=== PATIENT | female | born 1945 ===

== ENCOUNTER 2017-01-14 19:13 | Emergency (ER) | payer MEDICARE, MEDICAID ==
[2017-01-14 19:30] VITALS: BP 156/88; PULSE 88; RESP 20; TEMP 98.2; O2SAT 98
[2017-01-14] MEDS ORDERED: Acetaminophen-Codeine 300/30 mg Tab PO STA (19:53)
--- NOTE | 2017-01-14 19:55 | C.PDOC ---
History Of Present Illness 71 year old female presents to the ED complaining of pain to right upper back and shoulder area for the past 3 days. She states that she slipped and fell 3 days ago and landed on outstretched arms and has had pain since. Patient has history of kidney transplant and does not like to take non-prescribed medications at home. Pt denies SOB, weakness, or numbness ot the extremities Time Seen by Provider: 01/14/17 19:38 Chief Complaint (Nursing): Back Pain History Per: Patient History/Exam Limitations: no limitations Onset/Duration Of Symptoms: Days Current Symptoms Are (Timing): Still Present Past Medical History Reviewed: Historical Data, Nursing Documentation, Vital Signs Vital Signs: Last Vital Signs Temp 98.2 F 01/14/17 19:20 Pulse 88 01/14/17 19:20 Resp 20 01/14/17 19:20 BP 156/88 H 01/14/17 19:20 Pulse Ox 98 01/14/17 20:27 - Medical History PMH: Anxiety, Depression, Diabetes, HTN, Hypercholesterolemia, Chronic Kidney Disease - [facility] Procedures INSPECTION OF LARYNX, ENDO (11/23/15) Family History: States: Diabetes - Social History Hx Tobacco Use: No Hx Alcohol Use: No Hx Substance Use: No - Immunization History Hx Tetanus Toxoid Vaccination: Yes Hx Influenza Vaccination: Yes Hx Pneumococcal Vaccination: Yes Review Of Systems Respiratory: Negative for: Shortness of Breath Musculoskeletal: Positive for: Shoulder Pain, Back Pain Neurological: Negative for: Weakness, Numbness Physical Exam - Physical Exam Appears: Non-toxic, No Acute Distress Chest: No Tenderness Back: Normal Inspection, No Vertebral Tenderness, Other (Tenderness to right subscapular area, No weakness or numbness, No vertebral spine tenderness) Extremity: Other (No tenderness to palpation of right shoulder, Normal range of motion of right shoulder, No weakness, No numbness) Extremity: Bilateral: Atraumatic Neurological/Psych: Oriented x3, Normal Motor, Normal Sensation Gait: Steady ED Course And Treatment O2 Sat by Pulse Oximetry: 98 Pulse Ox Interpretation: Normal Progress Note: Pt reports pain improvement after meds. Pt instructed to follow up with PMD for reevaluation and pain management. Discharge instructions were discussed and understood by pt Disposition Counseled Patient/Family Regarding: Diagnosis, Need For Followup, Rx Given - Disposition Referrals: Alphonso Whitfield MD [Staff Provider] - Disposition: HOME/ ROUTINE Disposition Time: 20:24 Condition: STABLE Additional Instructions: Please follow up with Dr Whitfield Take meds as prescribed Return to ER if worse Prescriptions: Acetaminophen with Codeine [Tylenol with Codeine #3 Tablet] 1 - 2 each PO QID # 10 tablet Instructions: Muscle Strain (ED) Forms: [employer] ([place] Islander) Print Language: RUSSIAN - Clinical Impression Clinical Impression: Upper back strain - Scribe Statement The provider has reviewed the documentation as recorded by the Scribe Ariel Pace
[2017-01-14] MEDS ORDERED: Acetaminophen-Codeine 300/30 mg Tab PO ONE (20:05)
== END 2017-01-14 20:30 | disposition home or self-care (01) ==
LOC: C.ER 19:13
DX: S29.012A Strain of muscle and tendon of back wall of thorax, initial encounter (principal); W01.0XXA Fall on same level from slipping, tripping and stumbling without subsequent striking against object, initial encounter; Y93.89 Activity, other specified; Y92.89 Other specified places as the place of occurrence of the external cause

== ENCOUNTER 2017-04-06 19:23 | Emergency (ER) | payer MEDICARE, MEDICAID ==
[2017-04-06 20:48] LABS: BASO % 0.7 % (0.0-2.0); EOS % 0.3 % (0.0-4.0); HEMOGLOBIN 13.5 g/dL (11.0-16.0); LYMPH # 1.8 K/uL (1.0-4.3); LYMPH % 24.4 % (20.0-40.0); MEAN CELL VOLUME 84.2 fL (81.0-99.0); MEAN CORPUSCULAR HEMOGLOBIN 28.3 pg (27.0-31.0); MEAN CORPUSCULAR HGB CONC 33.6 g/dL (33.0-37.0); MEAN PLATELET VOLUME 9.7 fL (7.2-11.7); MONO # 0.6 K/uL (0.0-0.8); MONO % 7.9 % (0.0-10.0); NEUT # 4.9 K/uL (1.8-7.0); NEUT % 66.7 % (50.0-75.0); RBC 4.76 Mil/uL (3.80-5.20); RED CELL DISTRIBUTION WIDTH 13.6 % (11.5-14.5); WHITE BLOOD COUNT 7.4 K/uL (4.8-10.8)
--- NOTE | 2017-04-06 20:51 | C.PDOC ---
History Of Present Illness 71 year old female presents to the emergency department after sent by her primary care doctor, Dr. Alphonso Whitfield MD, after sugar levels were greater than 500. Associated with increased thirst and increased urination. Denies dizziness or any visual changes. Time Seen by Provider: 04/06/17 20:51 Chief Complaint (Nursing): Medical Clearance History Per: Patient History/Exam Limitations: no limitations Past Medical History Reviewed: Historical Data, Nursing Documentation, Vital Signs Vital Signs: Last Vital Signs Temp 97.6 F 04/06/17 19:56 Pulse 64 04/06/17 19:56 Resp 20 04/06/17 19:56 BP 180/92 H 04/06/17 19:56 Pulse Ox 100 04/06/17 21:51 - Medical History PMH: Anxiety, Depression, Diabetes, HTN, Hypercholesterolemia, Chronic Kidney Disease - [facility] Procedures INSPECTION OF LARYNX, ENDO (11/23/15) Family History: States: Diabetes - Social History Hx Tobacco Use: No Hx Alcohol Use: No Hx Substance Use: No - Immunization History Hx Tetanus Toxoid Vaccination: Yes Hx Influenza Vaccination: Yes Hx Pneumococcal Vaccination: Yes Review Of Systems Except As Marked, All Systems Reviewed And Found Negative. (As per HPI, otherwise negative) Constitutional: Positive for: Other (increased thirst) Eyes: Negative for: Vision Change Genitourinary: Positive for: Other (Increased urination. ) Neurological: Negative for: Dizziness Physical Exam - Physical Exam Appears: Well, Non-toxic Skin: Normal Color, Warm, Dry Head: Atraumatic, Normacephalic Throat: Normal, No Erythema Chest: Symmetrical Cardiovascular: Rhythm Regular, No Murmur Respiratory: Normal Breath Sounds, No Decreased Breath Sounds, No Accessory Muscle Use, No Wheezing Gastrointestinal/Abdominal: Normal Exam, Soft, No Tenderness Extremity: Normal ROM, No Pedal Edema Neurological/Psych: Oriented x3 ED Course And Treatment - Laboratory Results Result Diagrams: 04/06/17 20:43 04/06/17 20:43 ECG: Interpreted By Me, Viewed By Me ECG Rhythm: Sinus Rhythm (56), Nonspecific Changes O2 Sat by Pulse Oximetry: 100 (RA) Pulse Ox Interpretation: Normal - Radiology CXR: Interpreted by Me, Viewed By Me Reevaluation Time: 23:14 Reassessment Condition: Improved Medical Decision Making Medical Decision Making: Time: 2041 --VBG --EKG --Sodium Chloride 1L IV --Urinalysis --Random Glucose: 444 (High) Disposition Counseled Patient/Family Regarding: Studies Performed, Diagnosis, Need For Followup - Disposition Referrals: Alphonso Whitfield MD [Staff Provider] - Disposition: HOME/ ROUTINE Disposition Time: 20:51 Condition: FAIR Additional Instructions: Please return if symptoms recur Instructions: Diabetic Hyperglycemia (ED) Forms: [employer] (Micronesian) Print Language: ARMENIAN - Clinical Impression Clinical Impression: Hyperglycemia - Scribe Statement Deb Monzon All medical record entries made by the Scribe were at my direction and personally dictated by me. I have reviewed the chart and agree that the record accurately reflects my personal performance of the history, physical exam, medical decision making, and the department course for this patient. I have also personally directed, reviewed, and agree with the discharge instructions and disposition.
[2017-04-06 21:06] LABS: ALB/GLOB RATIO 1.3 (1.0-2.1); ALT/SGPT 15 U/L (9-52); AST/SGOT 17 U/L (14-36); BLOOD UREA NITROGEN 20 mg/dL (7-17); GFR AFRICAN-AMERICAN > 60; GFR NON-AFRICAN AMERICAN > 60
[2017-04-06] MEDS ORDERED: Sodium Chloride 0.9% 1,000 ML IV ONE (21:11)
[2017-04-06 21:15] LABS: LIPASE 205 U/L (23-300)
[2017-04-06 21:45] LABS: SQUAMOUS EPITHIAL < 1 /hpf (0-5); URINE BILIRUBIN NEGATIVE (NEGATIVE); URINE BLOOD NEGATIVE (NEGATIVE); URINE CLARITY Clear (Clear); URINE COLOR Straw (YELLOW); URINE GLUCOSE (UA) 3+ mg/dL (Normal); URINE LEUKOCYTE ESTERASE 1+ Leu/uL (Negative); URINE NITRATE NEGATIVE (NEGATIVE); URINE PROTEIN NEGATIVE (NEGATIVE); URINE UROBILINOGEN NORMAL mg/dL (0.2-1.0)
[2017-04-06 22:03] LABS: VENOUS BLOOD GAS BASE EXCESS -1.8 mmol/L (0.0-2.0); VENOUS BLOOD GAS PCO2 39 mmHg (40-60); VENOUS BLOOD GAS PO2 63 mm/Hg (30-55); VENOUS BLOOD PH 7.38 (7.32-7.43)
[2017-04-06] MEDS ORDERED: (Novolin R) Insulin Human Regular 100 units/ml vial SC ONE ×2 (22:08→22:42)
[2017-04-06] MEDS ORDERED: (Novolin R) Insulin Human Regular 100 units/ml vial ONE (22:31)
[2017-04-06 23:23] VITALS: BP 169/78; PULSE 68; RESP 16; TEMP 97.8; O2SAT 99
== END 2017-04-06 23:30 | disposition home or self-care (01) ==
LOC: C.ER 19:23
DX: E11.65 Type 2 diabetes mellitus with hyperglycemia (principal); I12.9 Hypertensive chronic kidney disease with stage 1 through stage 4 chronic kidney disease, or unspecified chronic kidney disease; N18.9 Chronic kidney disease, unspecified
CPT/HCPCS: 80053; 81001; 82009; 82803; 82948; 83690; 85025; 96360; 96372; 99283; J7040

== ENCOUNTER 2017-07-18 11:35 | Emergency (ER) | payer MEDICARE, MEDICAID ==
[2017-07-18] MEDS ORDERED: Sodium Chloride 0.9% 1,000 ML IV ONE (12:06)
--- NOTE | 2017-07-18 12:27 | C.PDOC ---
History Of Present Illness 71yo female with history of kidney transplant (2006 at [facility]), presents to ER for evaluation as she felt "shaky." Patient denies any fever, chills, chest pain, shortness of breath, weakness, numbness. She offers no medical complaints. Time Seen by Provider: 07/18/17 11:53 Chief Complaint (Nursing): Medical Clearance History Per: Patient History/Exam Limitations: no limitations Onset/Duration Of Symptoms: Mins Severity: Mild Recent travel outside of the [place]: No Past Medical History Reviewed: Historical Data, Nursing Documentation, Vital Signs Vital Signs: Last Vital Signs Temp 98.5 F 07/18/17 11:49 Pulse 99 H 07/18/17 11:49 Resp 20 07/18/17 11:49 BP 156/92 H 07/18/17 11:49 Pulse Ox 97 07/18/17 13:47 - Medical History PMH: Anxiety, Depression, Diabetes, HTN, Hypercholesterolemia, Chronic Kidney Disease Other Surgeries: kidney transplant - [facility] Procedures INSPECTION OF LARYNX, ENDO (11/23/15) Family History: States: Unknown Family Hx, Diabetes - Social History Hx Tobacco Use: No Hx Alcohol Use: No Hx Substance Use: No - Immunization History Hx Tetanus Toxoid Vaccination: Yes Hx Influenza Vaccination: Yes Hx Pneumococcal Vaccination: Yes Review Of Systems Except As Marked, All Systems Reviewed And Found Negative. Constitutional: Positive for: Other ("shaky"). Negative for: Fever, Chills Cardiovascular: Negative for: Chest Pain Respiratory: Negative for: Shortness of Breath Gastrointestinal: Negative for: Abdominal Pain Physical Exam - Physical Exam Appears: Non-toxic, No Acute Distress Skin: Normal Color, Warm, Dry Head: Atraumatic, Normacephalic Eye(s): bilateral: Normal Inspection, PERRL, EOMI Oral Mucosa: Moist Neck: Normal ROM, Supple Chest: Symmetrical Cardiovascular: Rhythm Regular Respiratory: Normal Breath Sounds, No Wheezing Gastrointestinal/Abdominal: Normal Exam, Soft, No Tenderness, Other (transplant scar noted to right abdomen) Back: Normal Inspection Extremity: Normal ROM Neurological/Psych: Oriented x3 Gait: Steady ED Course And Treatment - Laboratory Results Result Diagrams: 07/18/17 12:42 07/18/17 12:42 Lab Interpretation: Normal O2 Sat by Pulse Oximetry: 97 (RA) Pulse Ox Interpretation: Normal Progress Note: Patient reports she felt shakey today and request being checked out. Called 911. Treated with IVF and labs. On re-evaluation feeling better, in no distress Reassessment Condition: Improved Medical Decision Making Medical Decision Making: Plan: -- Labs -- Urinalysis -- IV Fluids Disposition Counseled Patient/Family Regarding: Studies Performed, Diagnosis, Need For Followup - Disposition Referrals: [facility] [Outside] [facility] [Outside] Disposition: HOME/ ROUTINE Disposition Time: 14:00 Condition: STABLE Additional Instructions: Follow up with your PMD and transplant clinic for further evaluation Instructions: Generalized Weakness (DC), Weakness (ED) Forms: [employer] (Sami) - POA Present On Arrival: None - Clinical Impression Clinical Impression: Medical assessment, Weakness - PA / GAMING HOST / Resident Statement MD/DO has reviewed & agrees with the documentation as recorded. - Scribe Statement The provider has reviewed the documentation as recorded by the Scribe (Marycruz Schmitt) Provider Attestation: All medical record entries made by the Scribe were at my direction and personally dictated by me. I have reviewed the chart and agree that the record accurately reflects my personal performance of the history, physical exam, medical decision making, and the department course for this patient. I have also personally directed, reviewed, and agree with the discharge instructions and disposition.
[2017-07-18 12:48] LABS: BASO # 0.1 K/uL (0.0-0.2); BASO % 0.8 % (0.0-2.0); EOS % 0.5 % (0.0-4.0); HEMOGLOBIN 13.5 g/dL (11.0-16.0); LYMPH # 1.2 K/uL (1.0-4.3); LYMPH % 17.6 % (20.0-40.0); MEAN CORPUSCULAR HEMOGLOBIN 28.6 pg (27.0-31.0); MEAN CORPUSCULAR HGB CONC 33.6 g/dL (33.0-37.0); MEAN PLATELET VOLUME 9.9 fL (7.2-11.7); MONO # 0.5 K/uL (0.0-0.8); MONO % 7.1 % (0.0-10.0); NEUT # 5.2 K/uL (1.8-7.0); RBC 4.73 Mil/uL (3.80-5.20); RED CELL DISTRIBUTION WIDTH 14.1 % (11.5-14.5); WHITE BLOOD COUNT 7.1 K/uL (4.8-10.8)
[2017-07-18 12:55] LABS: SQUAMOUS EPITHIAL < 1 /hpf (0-5); URINE BILIRUBIN NEGATIVE (NEGATIVE); URINE BLOOD NEGATIVE (NEGATIVE); URINE CLARITY Clear (Clear); URINE COLOR Yellow (YELLOW); URINE GLUCOSE (UA) NORMAL (Normal); URINE LEUKOCYTE ESTERASE NEG Leu/uL (Negative); URINE PROTEIN 2+ mg/dL (NEGATIVE); URINE UROBILINOGEN NORMAL mg/dL (0.2-1.0)
[2017-07-18 13:04] LABS: ALB/GLOB RATIO 1.1 (1.0-2.1); ALBUMIN 3.9 g/dL (3.5-5.0); GFR AFRICAN-AMERICAN > 60; GFR NON-AFRICAN AMERICAN > 60
[2017-07-18 13:12] LABS: ALT/SGPT 10 U/L (9-52); AST/SGOT 28 U/L (14-36); BLOOD UREA NITROGEN 16 mg/dL (7-17)
[2017-07-18 15:09] VITALS: BP 150/79; PULSE 75; RESP 18; TEMP 98.2; O2SAT 100
== END 2017-07-18 15:09 | disposition home or self-care (01) ==
LOC: C.ER 11:35
DX: R53.1 Weakness (principal)

== ENCOUNTER 2017-09-23 19:17 | Emergency (ER) | payer MEDICARE, MEDICAID ==
[2017-09-23 19:45] VITALS: RESP 16; TEMP 98; O2SAT 98
--- NOTE | 2017-09-23 20:50 | C.PDOC ---
History Of Present Illness 72-year-old female, presents to the emergency department with complaints of trip /fall prior to arrival. Patient is complaining of headache, pain to left knee, face and swelling of the lip. She denies any loss of consciousness. Patient notes tooth #6 is slightly loose. Denies any nausea/vomiting. - HPI Time Seen by Provider: 09/23/17 20:01 Chief Complaint (Nursing): Trauma History Per: Patient History/Exam Limitations: no limitations Injury Occurred (Timing): Just Before Arrival Past Medical History Reviewed: Historical Data, Nursing Documentation, Vital Signs Vital Signs: Last Vital Signs Temp 98.0 F 09/23/17 19:42 Pulse 61 09/23/17 22:40 Resp 16 09/23/17 22:40 BP 146/85 09/23/17 22:40 Pulse Ox 98 09/23/17 22:40 - Medical History PMH: Anxiety, Depression, Diabetes, HTN, Hypercholesterolemia, Chronic Kidney Disease - [facility] Procedures INSPECTION OF LARYNX, ENDO (11/23/15) Family History: States: Diabetes - Social History Hx Tobacco Use: No Hx Alcohol Use: No Hx Substance Use: No - Immunization History Hx Tetanus Toxoid Vaccination: Yes Hx Influenza Vaccination: Yes Hx Pneumococcal Vaccination: Yes Review Of Systems ENT: Positive for: Other (loose tooth) Respiratory: Negative for: Shortness of Breath Gastrointestinal: Negative for: Nausea, Vomiting Musculoskeletal: Negative for: Neck Pain, Back Pain Skin: Positive for: Other (pain to lip) Neurological: Positive for: Headache. Negative for: Weakness, Numbness, Dizziness Physical Exam - Physical Exam Appears: Non-toxic, No Acute Distress Skin: Normal Color, Warm, Dry, No Rash Head: Atraumatic, Normacephalic, Other (abrasion to lip, and knee.) Eye(s): bilateral: Normal Inspection, PERRL Nose: Normal Oral Mucosa: Moist Lips: Normal Appearing Teeth: Loose (tooth #6) Neck: Normal ROM, No Step Off Deformity Chest: Symmetrical Cardiovascular: Rhythm Regular, No Murmur Respiratory: Normal Breath Sounds, No Accessory Muscle Use Extremity: Normal ROM, No Deformity, No Swelling Neurological/Psych: Oriented x3, Normal Speech ED Course And Treatment O2 Sat by Pulse Oximetry: 98 (RA) Pulse Ox Interpretation: Normal - CT Scan/US CT head Other Rad Studies (CT/US): Read By Radiologist, Radiology Report Reviewed CT/US Interpretation: Name: TARIQ RICHEY Age: 72Years F Date: 09/23/2017. Requesting Physician: Prachi VELASQUEZ Rosi : 1945. [employer] Procedure Ordered As Accession Number of Images. CT HEAD WO CT HEAD W O CONTRAST [id number]. Provided Clinical History: fall. CONFIDENTIALITY STATEMENT. This report is intended only for the use of the referring physician , and only in accordance with law, If you received this in error, call [phone]. Page 1 of 1. EXAM: CT Head Without Intravenous Contrast. CLINICAL HISTORY: 72 years old, female; Injury or trauma; Fall; Initial encounter; Concussion /. head injury. TECHNIQUE: Axial computed tomography images of the head/brain without intravenous contrast. All CT scans at this facility use at least one of these dose optimization techniques: automated. exposure control; mA and/or kV adjustment per patient size (includes targeted exams where dose is. matched to clinical indication); or iterative reconstruction. COMPARISON: CT - HEAD W/O CONTRAST 2017-08-11 18:23. FINDINGS: Brain: Small vessel ischemic/degenerative changes. 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 Lacunar infarcts in both basal ganglia. No hemorrhage. Ventricles: Unremarkable. No ventriculomegaly. Bones/joints: Unremarkable. No acute fracture. Soft tissues: Unremarkable. Vasculature: Intracranial arterial calcifications. Sinuses: Unremarkable as visualized. No acute sinusitis. Mastoid air cells: Unremarkable as visualized. No mastoid effusion. IMPRESSION: Small vessel ischemic/degenerative changes. Thank you for allowing us to participate in the care of your patient. Dictated and Authenticated by: Rylan Davis MD. 09/23/2017 8:49 PM Eastern Time ([place] & [place]) Progress Note: XR knee and CT head ordered and reviewed. Disposition - Disposition Referrals: Alphonso Whitfield MD [Staff Provider] - Disposition: HOME/ ROUTINE Disposition Time: 22:35 Condition: STABLE Additional Instructions: Follow up with your PMD within 1-2 days. Return to ED if feel worse. Prescriptions: Acetaminophen [Tylenol 325mg tab] 2 tab PO Q6 #50 tab Instructions: Knee Sprain (DC), Minor Head Injury (DC) Forms: [facility] (Bangladeshi) - Clinical Impression Clinical Impression: Minor head injury, Knee contusion - Scribe Statement The provider has reviewed the documentation as recorded by the Scribe (Dwaine Carroll) All medical record entries made by the Scribe were at my direction and personally dictated by me. I have reviewed the chart and agree that the record accurately reflects my personal performance of the history, physical exam, medical decision making, and the department course for this patient. I have also personally directed, reviewed, and agree with the discharge instructions and disposition.
[2017-09-23 22:47] VITALS: BP 146/85; PULSE 61
--- NOTE | 2017-09-24 08:36 | CT ---
PROCEDURE: CT HEAD WITHOUT CONTRAST. HISTORY: fall COMPARISON: CT head dated 08/11/2017 TECHNIQUE: Axial computed tomography images were obtained through the head/brain without intravenous contrast. Radiation dose: Total exam DLP = 620 mGy-cm. This CT exam was performed using one or more of the following dose reduction techniques: Automated exposure control, adjustment of the mA and/or kV according to patient size, and/or use of iterative reconstruction technique. FINDINGS: HEMORRHAGE: No intracranial hemorrhage. BRAIN: Scattered focal lucencies in the subcortical and periventricular white matter suggestive for chronic microvascular ischemic change. 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 Lacunar infarcts in both basal ganglia. Persistent prominence of the left extra-axial CSF space adjacent to the left cerebellum measuring up to 2.1 x 0.9 centimeters previously measuring 2.0 x 0.9 centimeters. Correlation with MRI may be helpful ifclinically indicated. VENTRICLES: Unremarkable. No hydrocephalus. CALVARIUM: Unremarkable. PARANASAL SINUSES: Unremarkable as visualized. No significant inflammatory changes. MASTOID AIR CELLS: Unremarkable as visualized. No inflammatory changes. OTHER FINDINGS: Intracranial arterial calcifications. IMPRESSION: Chronic microvascular ischemic changes. 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 Lacunar infarcts in both basal ganglia. Persistent prominence of the left extra-axial CSF space adjacent to the left cerebellum measuring up to 2.1 x 0.9 centimeters previously measuring 2.0 x 0.9 centimeters. Correlation with MRI may be helpful if clinically indicated. If symptoms persist, consider correlation with MRI. These findings were preliminarily reported at 8:49 p.m. on 09/23/[address] Rylan Davis from [employer].
--- NOTE | 2017-09-24 09:45 | RAD ---
PROCEDURE: Left Knee Radiographs. HISTORY: Pain. COMPARISON: None. FINDINGS: BONES: Normal. No fracture. JOINTS: Normal. No osteoarthritis. JOINT EFFUSION: None. OTHER FINDINGS: None. IMPRESSION: Normal radiographs of the left knee.
== END 2017-09-23 22:40 | disposition home or self-care (01) ==
LOC: C.ER 19:17
DX: S09.90XA Unspecified injury of head, initial encounter (principal); S80.02XA Contusion of left knee, initial encounter; W01.0XXA Fall on same level from slipping, tripping and stumbling without subsequent striking against object, initial encounter; Y92.9 Unspecified place or not applicable

== ENCOUNTER 2018-01-10 08:32 | Emergency (ER) | payer MEDICARE, MEDICAID ==
[2018-01-10 08:49] VITALS: TEMP 98.2
--- NOTE | 2018-01-10 09:45 | C.PDOC ---
Chief Complaint (Nursing): Psychiatric Evaluation Past Medical History Vital Signs: Last Vital Signs Temp 98.2 F 01/10/18 08:45 Pulse 117 H 01/10/18 08:45 Resp 20 01/10/18 08:45 BP 207/112 H 01/10/18 08:45 Pulse Ox 100 01/10/18 08:45 - Medical History PMH: Anxiety, Depression, Diabetes, HTN, Hypercholesterolemia, Chronic Kidney Disease - [facility] Procedures INSPECTION OF LARYNX, ENDO (11/23/15) Family History: States: Diabetes - Social History Hx Tobacco Use: No Hx Alcohol Use: No Hx Substance Use: No - Immunization History Hx Tetanus Toxoid Vaccination: Yes Hx Influenza Vaccination: No Hx Pneumococcal Vaccination: No ED Course And Treatment O2 Sat by Pulse Oximetry: 100 Disposition - Disposition
--- NOTE | 2018-01-10 09:46 | C.PDOC ---
History Of Present Illness 72 y/o female with history of HTN, Depression, Kidney transplant brought by EMS and daughter for concerns to bizarre behavior and non compliant with medication. As per daughter patient recently became hoarder. Patient last seen psychiatrist 1 year ago. Patient denies SI/HI, auditory or visual hallucinations. Chief Complaint (Nursing): Psychiatric Evaluation History Per: Patient, Family Onset/Duration Of Symptoms: Days Current Symptoms Are (Timing): Still Present Suicide/Self Injury Attempted (Context): None Associated Symptoms: Depression Past Medical History Reviewed: Historical Data, Nursing Documentation, Vital Signs Vital Signs: Last Vital Signs Temp 98.2 F 01/10/18 08:45 Pulse 117 H 01/10/18 08:45 Resp 20 01/10/18 08:45 BP 207/112 H 01/10/18 08:45 Pulse Ox 100 01/10/18 08:45 - Medical History PMH: Anxiety, Depression, Diabetes, HTN, Hypercholesterolemia, Chronic Kidney Disease Surgical History: No Surg Hx - [facility] Procedures INSPECTION OF LARYNX, ENDO (11/23/15) Family History: States: Diabetes - Social History Hx Tobacco Use: No Hx Alcohol Use: No Hx Substance Use: No - Immunization History Hx Tetanus Toxoid Vaccination: Yes Hx Influenza Vaccination: No Hx Pneumococcal Vaccination: No Review Of Systems Except As Marked, All Systems Reviewed And Found Negative. Psych: Positive for: Depression Physical Exam - Physical Exam Appears: Non-toxic, No Acute Distress Skin: Warm, Dry, No Rash Head: Atraumatic, Normacephalic Eye(s): bilateral: Normal Inspection Oral Mucosa: Moist Neck: Normal ROM, Supple Cardiovascular: Rhythm Regular Respiratory: Normal Breath Sounds, No Rales, No Rhonchi, No Wheezing Gastrointestinal/Abdominal: Soft, No Tenderness, No Guarding, No Rebound Neurological/Psych: Oriented x3, Normal Speech, Normal Cognition ED Course And Treatment - Laboratory Results Result Diagrams: 01/10/18 10:20 01/10/18 10:20 O2 Sat by Pulse Oximetry: 100 (RA) Pulse Ox Interpretation: Normal Medical Decision Making Medical Decision Making: Impression: Depression, Hypertension Plan: Blood work, UA, EKG, CXR, Crisis eval Progress: Crisis evaluated patient, patient psychiatrically cleared for discharge Disposition - Disposition Referrals: [facility] [place] [facility] [Outside] [facility] [place] [Outside] Disposition: HOME/ ROUTINE Disposition Time: 15:14 Condition: GOOD Additional Instructions: Follow up with your pcp and psychiatrist in a few days. Continue taking your medication as prescribed by your physician. Instructions: Depression, High Blood Pressure in Adults, Suicide Prevention Forms: [employer] ([place] Islander) - Clinical Impression Clinical Impression: Depression, Hypertension - Scribe Statement The provider has reviewed the documentation as recorded by the Yoni Delgado All medical record entries made by the Yoni were at my direction and personally dictated by me. I have reviewed the chart and agree that the record accurately reflects my personal performance of the history, physical exam, medical decision making, and the department course for this patient. I have also personally directed, reviewed, and agree with the discharge instructions and disposition.
[2018-01-10 10:25] LABS: BASO # 0.1 K/uL (0.0-0.2); BASO % 0.9 % (0.0-2.0); EOS # 0.1 K/uL (0.0-0.7); HEMOGLOBIN 12.9 g/dL (11.0-16.0); LYMPH # 1.6 K/uL (1.0-4.3); LYMPH % 22.1 % (20.0-40.0); MEAN CELL VOLUME 85.1 fL (81.0-99.0); MEAN CORPUSCULAR HEMOGLOBIN 28.1 pg (27.0-31.0); MEAN PLATELET VOLUME 9.3 fL (7.2-11.7); MONO # 0.5 K/uL (0.0-0.8); MONO % 6.4 % (0.0-10.0); NEUT # 4.9 K/uL (1.8-7.0); NEUT % 69.6 % (50.0-75.0); NRBC % 0.1 % (0.0-2.0); RBC 4.61 Mil/uL (3.80-5.20); RED CELL DISTRIBUTION WIDTH 13.8 % (11.5-14.5); WHITE BLOOD COUNT 7.1 K/uL (4.8-10.8)
[2018-01-10 10:38] LABS: ALB/GLOB RATIO 1.3 (1.0-2.1); ALBUMIN 4.1 g/dL (3.5-5.0); ALT/SGPT 14 U/L (9-52); AST/SGOT 15 U/L (14-36); BLOOD UREA NITROGEN 19 mg/dL (7-17); CALCIUM 9.3 mg/dl (8.6-10.4); GFR NON-AFRICAN AMERICAN 49
[2018-01-10 10:52] LABS: SQUAMOUS EPITHIAL 1 /hpf (0-5); URINE BILIRUBIN NEGATIVE (NEGATIVE); URINE BLOOD NEGATIVE (NEGATIVE); URINE CLARITY Clear (Clear); URINE COLOR Yellow (YELLOW); URINE GLUCOSE (UA) NORMAL (Normal); URINE LEUKOCYTE ESTERASE NEG Leu/uL (Negative); URINE PROTEIN 2+ mg/dL (NEGATIVE); URINE UROBILINOGEN NORMAL mg/dL (0.2-1.0)
--- NOTE | 2018-01-10 11:13 | RAD ---
Date of service: 01/10/2018 PROCEDURE: CHEST RADIOGRAPH, 1 VIEW HISTORY: SOB COMPARISON: 07/07/2017. FINDINGS: LUNGS: The lungs are well inflated and clear. PLEURA: No pneumothorax or pleural fluid seen. CARDIOVASCULAR: Normal. OSSEOUS STRUCTURES: No significant abnormalities. VISUALIZED UPPER ABDOMEN: Normal. OTHER FINDINGS: None. IMPRESSION: No active pulmonary disease.
--- NOTE | 2018-01-10 12:34 | CT ---
Date of service: 01/10/2018 PROCEDURE: CT HEAD WITHOUT CONTRAST. HISTORY: change in mental status COMPARISON: Noncontrast head CT performed 09/23/17 TECHNIQUE: Axial computed tomography images were obtained through the head/brain without intravenous contrast. Radiation dose: Total exam DLP = 848.69 mGy-cm. This CT exam was performed using one or more of the following dose reduction techniques: Automated exposure control, adjustment of the mA and/or kV according to patient size, and/or use of iterative reconstruction technique. FINDINGS: HEMORRHAGE: No intracranial hemorrhage. BRAIN: Diffuse atrophy with prominence of the ventricles and sulci noted. No mass effect or edema. Intracranial atherosclerosis. Scattered periventricular and subcortical white matter hypodensities, which are nonspecific, but often seen with chronic microvascular ischemic disease. Right occipital lobe encephalomalacia consistent with remote infarction. Bilateral basal ganglia lacunar infarcts. Persistent prominence of the left extra-axial CSF space adjacent to the left cerebellum.Please note that MRI with diffusion imaging is more sensitive in the detection of acute ischemic event. VENTRICLES: No hydrocephalus. CALVARIUM: Unremarkable. PARANASAL SINUSES: Unremarkable as visualized. No significant inflammatory changes. MASTOID AIR CELLS: Unremarkable as visualized. No inflammatory changes. OTHER FINDINGS: None. IMPRESSION: Chronic nonspecific white matter changes. 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 Basal ganglia lacunar infarcts. Persistent prominence of the left extra-axial CSF space adjacent to the left cerebellum. If symptoms persist, consider correlation with MRI.
[2018-01-10 13:14] VITALS: RESP 16
[2018-01-10 15:16] VITALS: BP 111/50; PULSE 61
[2018-01-16 17:42] VITALS: O2SAT 100
== END 2018-01-10 15:14 | disposition home or self-care (01) ==
LOC: C.ER 08:32
DX: F32.9 Major depressive disorder, single episode, unspecified (principal); I10 Essential (primary) hypertension

== ENCOUNTER 2018-06-04 15:58 | Inpatient (IN) | payer MEDICARE, MEDICAID ==
[2018-06-04] MEDS ORDERED: Sodium Chloride 0.9% 1,000 ML IV SCH (17:15)
--- NOTE | 2018-06-04 17:26 | C.PDOC ---
History Of Present Illness 72 year old female, whose past medical history includes hypertension, high cholesterol, diabetes and kidney transplant (currently not on dialysis and is making good urine), presents to the ED for evaluation after having a syncopal ep isode while using the bathroom earlier today. Patient states she was eating in [employer] when she began experiencing some abdominal pain. She then went to use the bathroom and syncopized while she was using the bathroom. Patient denies weakness, headache, chest pain, nausea, vomiting, slurred speech, abdominal pain at this time. Time Seen by Provider: 06/04/18 16:46 Chief Complaint (Nursing): Weakness/Neurological Deficit History Per: Patient History/Exam Limitations: no limitations Onset/Duration Of Symptoms: Hrs Current Symptoms Are (Timing): Better Activity At Onset Of Symptoms: Sitting Associated Symptoms Preceding Syncopal Episode: No Predromal Symptoms (Sudden Onset) Additional History Per: Patient Past Medical History Reviewed: Historical Data, Nursing Documentation, Vital Signs Vital Signs: Last Vital Signs Temp 98.5 F 06/04/18 16:59 Pulse 63 06/04/18 16:59 Resp 12 06/04/18 16:59 BP 117/46 L 06/04/18 16:59 Pulse Ox 95 06/04/18 16:59 - Medical History PMH: Anxiety, Depression, Diabetes, HTN, Hypercholesterolemia, Chronic Kidney Disease Denies: Hepatitis, HIV, Seizures, Sexually Transmitted Disease Surgical History: No Surg Hx - [facility] Procedures INSPECTION OF LARYNX, ENDO (11/23/15) Family History: States: Diabetes - Social History Hx Tobacco Use: No Hx Alcohol Use: No Hx Substance Use: No - Immunization History Hx Tetanus Toxoid Vaccination: (unk) Hx Influenza Vaccination: (unk) Hx Pneumococcal Vaccination: (unk) Review Of Systems Constitutional: Negative for: Fever, Chills, Sweats, Weakness, Malaise Eyes: Negative for: Pain, Vision Change ENT: Negative for: Ear Pain, Ear Discharge, Nose Pain, Nose Congestion, Mouth Pain, Mouth Swelling Cardiovascular: Negative for: Chest Pain, Palpitations, Orthopnea, Edema, Light Headedness Respiratory: Negative for: Cough, Shortness of Breath, SOB with Excertion, Pleuritic Pain Gastrointestinal: Positive for: Diarrhea. Negative for: Nausea, Vomiting, Abdominal Pain, Constipation, Melena, Hematochezia, Hematemesis Genitourinary: Negative for: Dysuria, Frequency, Incontinence, Hematuria, Vaginal Discharge, Vaginal Bleeding Musculoskeletal: Negative for: Neck Pain, Shoulder Pain, Arm Pain, Back Pain, Hand Pain, Leg Pain Skin: Negative for: Rash, Lesions Neurological: Positive for: Other (syncope). Negative for: Weakness, Headache Physical Exam - Physical Exam Appears: Well, Non-toxic, No Acute Distress Skin: Normal Color, Warm, Dry Head: Atraumatic, Normacephalic Eye(s): bilateral: Normal Inspection, PERRL, EOMI Ear(s): Bilateral: Normal Nose: Normal, No Flaring Oral Mucosa: Moist Tongue: Normal Appearing Lips: Normal Appearing Throat: Normal, No Erythema, No Exudate Neck: Normal, Normal ROM, Supple, Other (no meningeal signs) Chest: Symmetrical, No Deformity, No Tenderness Cardiovascular: Rhythm Regular, No Murmur Respiratory: Normal Breath Sounds, No Rales, No Rhonchi, No Wheezing Gastrointestinal/Abdominal: Normal Exam, Soft, No Tenderness, No Guarding, No Rebound Back: Normal Inspection, No CVA Tenderness, No Vertebral Tenderness, No Parasp inal Tenderness Extremity: Normal ROM, Capillary Refill (less than 2 seconds ) Extremity: Bilateral: Atraumatic, Hips Non-Tender, Normal Color And Temperature, Normal ROM Pulses: Left Radial: Normal, Right Radial: Normal, Left Dorsalis Pedis: Normal, Right Dorsalis Pedis: Normal Neurological/Psych: Oriented x3, Normal Speech, Normal Cognition, Normal Cranial Nerves, No Cerebellar Signs, Normal Motor Extremity: Right: No Drift, Left: No Drift ED Course And Treatment - Laboratory Results Result Diagrams: 06/04/18 19:05 06/04/18 19:05 ECG: Interpreted By Or ECG Rhythm: Sinus Bradycardia Interpretation Of ECG: Sinus Bradycardia at 55bpm. No STEMI. Rate From EC O2 Sat by Pulse Oximetry: 95 Medical Decision Making Medical Decision Makin yr old F w/ hx of kidney transplant p/w syncopal episode, likely vasovagal per clinical presentation. No acute deficit noted on exam. MAEW without pain. No complaints. Will seek labs and imaging however given hx of kidney transplant and syncope. Progress: Bloodwork, urinalysis, CT A/P, CT Head, and EKG ordered and reviewed. IV Fluids given. 1830 CTH unremarkable pending CTAP, labs pt in NAD 2030 beth, fluids running no blockage on ct Appreciate consult w/ Dr. Barney to be admitted to DR. Pyle service pt in nad pending ua 0019 UA unremarkable Disposition - Disposition Disposition: HOSPITALIZED Disposition Time: 20:39 Condition: STABLE - Clinical Impression Clinical Impression: BETH (acute kidney injury) - Scribe Statement The provider has reviewed the documentation as recorded by the Scribe (Eliza Jones) Provider Attestation: All medical record entries made by the Scribe were at my direction and personally dictated by me. I have reviewed the chart and agree that the record accurately reflects my personal performance of the history, physical exam, medical decision making, and the department course for this patient. I have also personally directed, reviewed, and agree with the discharge instructions and disposition.
--- NOTE | 2018-06-04 18:16 | CT ---
Date of service: 06/04/2018 PROCEDURE: CT HEAD WITHOUT CONTRAST. HISTORY: syncope COMPARISON: Noncontrast head CT performed 01/10/18 and 09/23/17 TECHNIQUE: Axial computed tomography images were obtained through the head/brain without intravenous contrast. Radiation dose: Total exam DLP = 790.07 mGy-cm. This CT exam was performed using one or more of the following dose reduction techniques: Automated exposure control, adjustment of the mA and/or kV according to patient size, and/or use of iterative reconstruction technique. FINDINGS: HEMORRHAGE: No intracranial hemorrhage. BRAIN: Diffuse atrophy with prominence of the ventricles and sulci noted. No mass effect or edema. Intracranial atherosclerosis. Scattered periventricular and subcortical white matter hypodensities, which are nonspecific, but often seen with chronic microvascular ischemic disease. Right occipital lobe encephalomalacia consistent with remote infarction. Bilateral basal ganglia lacunar infarcts. Previously demonstrated persistent prominence of the left extra-axial CSF space adjacent to the left cerebellum left appreciated on this study possibly due to positioning. Please note that MRI with diffusion imaging is more sensitive in the detection of acute ischemic event. VENTRICLES: No hydrocephalus. CALVARIUM: Unremarkable. PARANASAL SINUSES: Unremarkable as visualized. No significant inflammatory changes. MASTOID AIR CELLS: Unremarkable as visualized. No inflammatory changes. OTHER FINDINGS: None. IMPRESSION: No significant interval change appreciated. Chronic nonspecific white matter changes. 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 Basal ganglia lacunar infarcts. If symptoms persist, consider correlation with MRI.
--- NOTE | 2018-06-04 18:47 | CT ---
PROCEDURE: CT Abdomen and Pelvis without Oral or IV contrast. HISTORY: hx kidney transplant, syncope COMPARISON: None available. TECHNIQUE: Contiguous axial images of the abdomen and pelvis. No oral or IV contrast administered. Coronal and Sagittal reformats generated and reviewed. Radiation dose: Total exam DLP = 426.22 mGy-cm. This CT exam was performed using one or more of the following dose reduction techniques: Automated exposure control, adjustment of the mA and/or kV according to patient size, and/or use of iterative reconstruction technique. FINDINGS: There is limited evaluation of the solid organs without the administration of IV contrast. LOWER THORAX: No visible consolidation, pleural effusion, or pneumothorax. LIVER: Unremarkable unenhanced appearance. GALLBLADDER AND BILE DUCTS: Unremarkable unenhanced appearance. PANCREAS: Unremarkable unenhanced appearance. SPLEEN: Unremarkable unenhanced appearance. ADRENALS: Unremarkable unenhanced appearance. KIDNEYS AND URETERS: Diminutive bilateral [place] kidneys with probable right renal cyst and additional too small to characterize 4 mm exophytic left renal mass. Right lower quadrant transplant kidney. No hydronephrosis or obstructing calculus identified. BLADDER: Mildly thick-walled incompletely distended urinary bladder. REPRODUCTIVE: Uterus is present. APPENDIX: The appendix appears within normal limits of caliber. No secondary signs of acute appendicitis. BOWEL: The stomach is nondistended. Lack of oral contrast limits evaluation for bowel pathology. The bowel loops appear within normal limits of caliber without evidence of intestinal obstruction. PERITONEUM: Small pelvic free fluid. No definite free air. LYMPH NODES: No bulky lymphadenopathy identified. VASCULATURE: Atherosclerotic calcifications of the aorta and branches. No aortic aneurysm. BONES: Osseous demineralization. Mild degenerative changes. OTHER FINDINGS: None. IMPRESSION: Diminutive bilateral [place] kidneys with probable right renal cyst and additional too small to characterize 4 mm exophytic left renal mass. Right lower quadrant transplant kidney. No hydronephrosis or obstructing calculus identified. Mildly thick-walled incompletely distended urinary bladder. Recommend correlation with urinalysis.
[2018-06-04 19:19] LABS: BASO # 0.1 K/uL (0.0-0.2); BASO % 0.6 % (0.0-2.0); EOS % 0.1 % (0.0-4.0); HEMOGLOBIN 11.9 g/dL (11.0-16.0); LYMPH # 1.2 K/uL (1.0-4.3); MEAN CELL VOLUME 85.1 fL (81.0-99.0); MEAN CORPUSCULAR HEMOGLOBIN 28.1 pg (27.0-31.0); MEAN PLATELET VOLUME 12.1 fL (7.2-11.7); MONO # 0.9 K/uL (0.0-0.8); MONO % 10.4 % (0.0-10.0); NEUT # 6.2 K/uL (1.8-7.0); NEUT % 74.9 % (50.0-75.0); NRBC % 0.1 % (0.0-2.0); RBC 4.24 Mil/uL (3.80-5.20); RED CELL DISTRIBUTION WIDTH 13.9 % (11.5-14.5); WHITE BLOOD COUNT 8.2 K/uL (4.8-10.8)
[2018-06-04 20:18] LABS: CALCIUM 9.4 mg/dl (8.6-10.4)
[2018-06-04 20:19] LABS: ALB/GLOB RATIO 1.4 (1.0-2.1); ALBUMIN 3.9 g/dL (3.5-5.0)
[2018-06-04 20:20] LABS: TROPONIN I 0.057 ng/mL (0.00-0.120)
[2018-06-04 20:38] LABS: SQUAMOUS EPITHIAL 4 /hpf (0-5); URINE BACTERIA RARE (<OCC); URINE BILIRUBIN NEGATIVE (NEGATIVE); URINE BLOOD 3+ (NEGATIVE); URINE CLARITY Hazy (Clear); URINE COLOR Yellow (YELLOW); URINE GLUCOSE (UA) NORMAL (Normal); URINE HYALINE CAST 0-2 /lpf (0-2); URINE LEUKOCYTE ESTERASE NEG Leu/uL (Negative); URINE PROTEIN 3+ mg/dL (NEGATIVE); URINE UROBILINOGEN NORMAL mg/dL (0.2-1.0)
--- NOTE | 2018-06-04 21:19 | CP.PCM.HP ---
<Miguel ÁngelCharles berrios - Last Filed: 06/04/18 22:52> History of Present Illness - History of Present Illness History of Present Illness: PGY-1 History and Physical for Dr. Barney Patient is a 72 year old female with PMHx HTN, DM, renal transplant in 2009 who presents after falling in a [employer] bathroom. Patient stated to me that she slipped on something in the bathroom causing her to fall. However patient's nurse and patient's daughter relayed to me that earlier the patient had stated that she had gone to the bathroom and [employer], felt dizzy, and syncopized. It is unclear if the patient lost consciousness or hit her head. Episode was unwitnessed. Per patient's daughter, the patient has been more forgetful lately- stating that she has new-onset dementia. Daughter states that patient has been noncompliant recently with her medications and following with doctor's appointments. Patient's daughter endorsed that the patient has been complaining of upset stomach for past several days. She denies nausea or vomiting. She has had some loose stools, but no bloody BMs or black, tarry stools. PMHx: HTN, DM, CKD s/p kidney transplant PSHx: 33 years ago. Kidney transplant December 2009 Allergies: NKDA Social: Denies tobacco, alcohol, drugs. Originally from [place]. Lives with boyfriend Family Hx: Father and daughter with HTN PMD: Dr. Whitfield Condenser Tube Tender: Dr. Heaton Present on Admission - Present on Admission Any Indicators Present on Admission: No Review of Systems - Constitutional Constitutional: absent: Chills, Fever - EENT Eyes: absent: Blurred Vision, Diplopia Nose/Mouth/Throat: absent: Nasal Congestion, Nasal Discharge - Cardiovascular Cardiovascular: absent: Chest Pain, Dyspnea, Lightheadedness, Palpitations, Pedal Edema - Respiratory Respiratory: absent: Cough, Hemoptysis - Gastrointestinal Gastrointestinal: absent: Abdominal Pain, Constipation, Heartburn, Nausea - Genitourinary Genitourinary: absent: Dysuria, Urinary Frequency - Musculoskeletal Musculoskeletal: absent: Back Pain, Neck Pain - Neurological Neurological: Confusion (Daughter states patient more confused recently due to new onset dementia), Syncope (Initially patient stated she felt she had syncopized, when I saw her patient says she slipped). 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) - HEMATOLOGICAL/ONCOLOGICAL Hx Human Immunodeficiency Virus (HIV): No - INTEGUMENTARY Hx Dermatological Problems: No - MUSCULOSKELETAL/RHEUMATOLOGICAL Hx Falls: No - GASTROINTESTINAL Hx Gastrointestinal Disorders: No - GENITOURINARY/GYNECOLOGICAL Hx Sexually Transmitted Disorders: No - PSYCHIATRIC Hx Anxiety: Yes Hx Depression: Yes Hx Substance Use: No - SURGICAL HISTORY Hx Kidney Transplant: Yes (right kidney 6 years ago) - ANESTHESIA Hx Anesthesia: Yes Hx Anesthesia Reactions: No Meds Allergies/Adverse Reactions: Allergies Allergy/AdvReac Type Severity Reaction Status Date / Time enalapril Allergy Severe ANGIOEDEMA Verified 06/04/18 17:06 Physical Exam - Constitutional Appears: Non-toxic, No Acute Distress - Head Exam Head Exam: ATRAUMATIC, NORMOCEPHALIC - Eye Exam Eye Exam: EOMI, Normal appearance - ENT Exam ENT Exam: Mucous Membranes Moist - Respiratory Exam Respiratory Exam: Clear to Auscultation Bilateral, NORMAL BREATHING PATTERN. absent: Rhonchi, Wheezes - Cardiovascular Exam Cardiovascular Exam: REGULAR RHYTHM, +S1, +S2 - GI/Abdominal Exam GI & Abdominal Exam: Normal Bowel Sounds, Soft. absent: Tenderness - Extremities Exam Extremities exam: Positive for: normal inspection. Negative for: pedal edema, tenderness - Neurological Exam Neurological exam: Alert, CN II-XII Intact, Oriented x3 - Expanded Neurological Exam Expanded Cranial nerves: EOM's Intact: Normal, Facial Palsey w/Forehead Movement: Normal, Facial Palsey w/o Forehead Movement: Normal, Facial Sensation: Normal, Gag Reflex: Normal, Nystagmus: Normal, Tongue Deviation: Normal Cerebellar Function: Finger to Nose: Normal Upper motor neuron: Babinski Sign: Normal Sensory exam: Lower Extremity 2 Point Discrimination: Normal, Upper Extremity 2 Point Discrimination: Normal Neuro motor strength exam: Left Upper Extremity: 5, Right Upper Extremity: 5, Left Lower Extremity: 5, Right Lower Extremity: 5 - Psychiatric Exam Psychiatric exam: Normal Affect, Normal Mood - Skin Skin Exam: Dry, Intact Results - Vital Signs Recent Vital Signs: Last Vital Signs Temp 98.5 F 06/04/18 16:59 Pulse 62 06/04/18 19:22 Resp 18 06/04/18 19:22 BP 157/75 H 06/04/18 19:22 Pulse Ox 95 06/04/18 20:39 - Labs Result Diagrams: 06/04/18 19:05 06/04/18 19:05 Labs: Laboratory Results - last 24 hr 06/04/18 06/04/18 06/04/18 16:17 19:05 19:05 WBC 8.2 RBC 4.24 Hgb 11.9 Hct 36.1 MCV 85.1 MCH 28.1 MCHC 33.0 RDW 13.9 Plt Count 32 L D MPV 12.1 H Neut % (Auto) 74.9 Lymph % (Auto) 14.0 L Carver % (Auto) 10.4 H Eos % (Auto) 0.1 Baso % (Auto) 0.6 Neut # (Auto) 6.2 Lymph # (Auto) 1.2 Carver # (Auto) 0.9 H Eos # (Auto) 0.0 Baso # (Auto) 0.1 Differential Comment Sodium 134 Potassium 4.4 Chloride 101 Carbon Dioxide 25 Anion Gap 12 BUN 68 H Creatinine 3.6 H Est GFR ( Amer) 15 Est GFR (Non-Af Amer) 12 POC Glucose (mg/dL) 85 Random Glucose 64 L D Calcium 9.4 Total Bilirubin 1.6 H AST 68 H D ALT 15 Alkaline Phosphatase 53 Troponin I 0.0570 Total Protein 6.6 Albumin 3.9 Globulin 2.7 Albumin/Globulin Ratio 1.4 Lipase 430 H Urine Color Urine Clarity Urine pH Ur Specific [place] Urine Protein Urine Glucose (UA) Urine Ketones Urine Blood Urine Nitrate Urine Bilirubin Urine Urobilinogen Ur Leukocyte Esterase Urine WBC (Auto) Urine RBC (Auto) Ur Squamous Epith Cells Urine Bacteria Hyaline Casts 06/04/18 20:31 WBC RBC Hgb Hct MCV MCH MCHC RDW Plt Count MPV Neut % (Auto) Lymph % (Auto) Carver % (Auto) Eos % (Auto) Baso % (Auto) Neut # (Auto) Lymph # (Auto) Carver # (Auto) Eos # (Auto) Baso # (Auto) Differential Comment Sodium Potassium Chloride Carbon Dioxide Anion Gap BUN Creatinine Est GFR ( Amer) Est GFR (Non-Af Amer) POC Glucose (mg/dL) Random Glucose Calcium Total Bilirubin AST ALT Alkaline Phosphatase Troponin I Total Protein Albumin Globulin Albumin/Globulin Ratio Lipase Urine Color Yellow Urine Clarity Hazy Urine pH 5.0 Ur Specific [place] 1.013 Urine Protein 3+ H Urine Glucose (UA) Normal Urine Ketones Negative Urine Blood 3+ H Urine Nitrate Negative Urine Bilirubin Negative Urine Urobilinogen Normal Ur Leukocyte Esterase Neg Urine WBC (Auto) 3 Urine RBC (Auto) 1 Ur Squamous Epith Cells 4 Urine Bacteria Rare Hyaline Casts 0-2 Assessment & Plan - Assessment and Plan (Free Text) Assessment: Syncopal episode -CT head without constrast 06/04: No significant interval change appreciated. Chronic nonspecific white matter changes. 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 Basal ganglia lacunar infarcts. If symptoms persist, consider correlation with MRI. -FOBT - f/u -HgB 11.9 -Normotensive, HR 60s on monitor -Thrombocytopenic - platelets 33. Recheck morning CBC for possible lab error. -EKG sinus kelsea, HR 54 -ROMIs negative x1 -F/u EKG/ROMIs 23:00, 05:00 -MRI brain w/o contrast - f/u -Carotid dopplers - f/u -Echo - f/u Thrombocytopenia/Transaminitis -Platelets 33. Recheck morning CBC for possible lab error. --193 in 12/2017. Patient denies easy bruising or bleeding. -AST/ALT 68/15 - Previously normal in 12/2017 and before -No known history of thrombocytopenia, leukemia -Chemical DVT ppx contraindicated -3+ blood on UA -Home plavix held Abdominal Discomfort -CT abd/pelvis 06/04: Diminutive bilateral [place] kidneys with probable right mark al cyst and additional too small to characterize 4 mm exophytic left renal mass. Right lower quadrant transplant kidney. No hydronephrosis or obstructing calculus identified. Mildly thick-walled incompletely distended urinary bladder. Recommend correlation with urinalysis. -Lipase 430. No evidence of pancreatitis on CT. DM -Humalog 7 U SC AMHS -Lantus 30 U SC HS -ISS --DM meds held overnight for hypoglycemia Acute on Chronic Renal Failure, History R Renal Transplant -BUN/CR 68/3.6. December 2017 BUN/Cr 19/1.1 - >300% increase in Cr -Continue Home Meds: --Please confirm home meds tomorrow with daughter/pharmacy. Patient's daughter who handles her meds does have a list of medications, but states she needs to confirm with pharmacy tomorrow that meds are correct. --Tacrolimus 3mg QAM, 2 mg QPM - please confirm before starting med --Mycophenalate 540 mg PO BID --Prednisone 5mg PO daily --Cinacalcet 30 mg PO daily -Follow up AM BUN/Cr - Will likely require Nephro consult and possible HD --Former HD patient prior to renal transplant, AVF on L arm -D5/.45 NS @ 80cc/hr Hypomagnesemia --Magnesium Oxide 400 mg PO BID HTN -Toprol XL 50 mg PO daily -Losartan 50 mg PO daily PPx -Chemical DVT ppx C/I -SCDs -Mod consistent carb diet Assessment and plan discussed with Dr. Savita Maki, PGY-1 <Josse Barney - Last Filed: 06/05/18 06:15> Results - Vital Signs Recent Vital Signs: Last Vital Signs Temp 98.1 F 06/05/18 00:50 Pulse 60 06/05/18 00:50 Resp 16 06/05/18 00:50 BP 160/62 H 06/05/18 00:50 Pulse Ox 97 06/05/18 00:50 - Labs Result Diagrams: 06/04/18 19:05 06/04/18 19:05 Labs: Laboratory Results - last 24 hr 06/04/18 06/04/18 06/04/18 16:17 19:05 19:05 WBC 8.2 RBC 4.24 Hgb 11.9 Hct 36.1 MCV 85.1 MCH 28.1 MCHC 33.0 RDW 13.9 Plt Count 32 L D MPV 12.1 H Neut % (Auto) 74.9 Lymph % (Auto) 14.0 L Carver % (Auto) 10.4 H Eos % (Auto) 0.1 Baso % (Auto) 0.6 Neut # (Auto) 6.2 Lymph # (Auto) 1.2 Carver # (Auto) 0.9 H Eos # (Auto) 0.0 Baso # (Auto) 0.1 Differential Comment Sodium 134 Potassium 4.4 Chloride 101 Carbon Dioxide 25 Anion Gap 12 BUN 68 H Creatinine 3.6 H Est GFR ( Amer) 15 Est GFR (Non-Af Amer) 12 POC Glucose (mg/dL) 85 Random Glucose 64 L D Calcium 9.4 Total Bilirubin 1.6 H AST 68 H D ALT 15 Alkaline Phosphatase 53 Total Creatine Kinase CK-MB (Mass) Troponin I 0.0570 Total Protein 6.6 Albumin 3.9 Globulin 2.7 Albumin/Globulin Ratio 1.4 Lipase 430 H Urine Color Urine Clarity Urine pH Ur Specific [place] Urine Protein Urine Glucose (UA) Urine Ketones Urine Blood Urine Nitrate Urine Bilirubin Urine Urobilinogen Ur Leukocyte Esterase Urine WBC (Auto) Urine RBC (Auto) Ur Squamous Epith Cells Urine Bacteria Hyaline Casts 06/04/18 06/04/18 06/05/18 20:31 23:23 00:27 WBC RBC Hgb Hct MCV MCH MCHC RDW Plt Count MPV Neut % (Auto) Lymph % (Auto) Carver % (Auto) Eos % (Auto) Baso % (Auto) Neut # (Auto) Lymph # (Auto) Carver # (Auto) Eos # (Auto) Baso # (Auto) Differential Comment Sodium Potassium Chloride Carbon Dioxide Anion Gap BUN Creatinine Est GFR ( Amer) Est GFR (Non-Af Amer) POC Glucose (mg/dL) 74 Random Glucose Calcium Total Bilirubin AST ALT Alkaline Phosphatase Total Creatine Kinase 124 CK-MB (Mass) 0.50 Troponin I 0.0400 Total Protein Albumin Globulin Albumin/Globulin Ratio Lipase Urine Color Yellow Urine Clarity Hazy Urine pH 5.0 Ur Specific [place] 1.013 Urine Protein 3+ H Urine Glucose (UA) Normal Urine Ketones Negative Urine Blood 3+ H Urine Nitrate Negative Urine Bilirubin Negative Urine Urobilinogen Normal Ur Leukocyte Esterase Neg Urine WBC (Auto) 3 Urine RBC (Auto) 1 Ur Squamous Epith Cells 4 Urine Bacteria Rare Hyaline Casts 0-2 Assessment & Plan - Date & Time Date: 06/05/18 (I have seen and examined the patient. I agree with the findings and plan of care as documented by Dr. Maki. Patient with syncope. MRI brain in AM. 2D Echo. Carotid dopplers. ROMIx3. Fall precautions. Also with thrombocytopenia. Avoid heparin and Lovenox. Some bleeding noted on UA. Acute renal failure. History of renal transplant. IVF. Consider nephro consult if IVF does not improve renal function. History of diabetes. NISS. Continue home meds. Monitor for acute changes.) Time: 06:12 Attending/Attestation - Attestation I have personally seen and examined this patient.: Yes I have fully participated in the care of the patient.: Yes I have reviewed all pertinent clinical information: Yes
[2018-06-04] MEDS: Dextrose 5%/0.45% NS 1,000 ML IV SCH (23:26)
[2018-06-04] MEDS ORDERED: Dextrose 5%/0.45% NS 1,000 ML IV ONE (23:26)
[2018-06-05 00:56] LABS: CK-MB 0.5 ng/mL (0.0-3.38)
[2018-06-05 00:58] LABS: TROPONIN I 0.04 ng/mL (0.00-0.120)
[2018-06-05] MEDS ORDERED: Glucagon Recombinant 1 mg Inj IM PRN (03:05)
[2018-06-05] MEDS ORDERED: Dextrose 50% SYRINGE Inj (50 ml) IV PRN (03:05)
[2018-06-05 08:34] LABS: HEMOGLOBIN 10.6 g/dL (11.0-16.0); LYMPH # 1.3 K/uL (1.0-4.3); MONO # 0.6 K/uL (0.0-0.8); NEUT # 3.3 K/uL (1.8-7.0); NRBC % 0.1 % (0.0-2.0)
[2018-06-05 08:40] LABS: BASO % 0.5 % (0.0-2.0); EOS % 0.6 % (0.0-4.0); LYMPH % 24.2 % (20.0-40.0); MEAN CORPUSCULAR HEMOGLOBIN 28.2 pg (27.0-31.0); MEAN CORPUSCULAR HGB CONC 33.2 g/dL (33.0-37.0); MEAN PLATELET VOLUME 11.1 fL (7.2-11.7); MONO % 12.3 % (0.0-10.0); NEUT % 62.4 % (50.0-75.0); RBC 3.77 Mil/uL (3.80-5.20); RED CELL DISTRIBUTION WIDTH 14.1 % (11.5-14.5); WHITE BLOOD COUNT 5.3 K/uL (4.8-10.8)
[2018-06-05 08:48] LABS: ALB/GLOB RATIO 1.2 (1.0-2.1); ALBUMIN 3.2 g/dL (3.5-5.0)
[2018-06-05 08:53] LABS: CK-MB 0.46 ng/mL (0.0-3.38); TROPONIN I 0.029 ng/mL (0.00-0.120)
--- NOTE | 2018-06-05 09:25 | CP.PCM.PN ---
<Jerod Muñoz - Last Filed: 06/05/18 18:41> Subjective - Date & Time of Evaluation Date of Evaluation: 06/05/18 Time of Evaluation: 11:00 - Subjective Subjective: Medicine progress note for Dr. Mack Jones Pt seen and examined at bedside. Pt is unsure why she is her, only admits to cough, nasal congestion. Pt's partner who lives with her, Abdon, reports they were at [facility] when she spilled something on herself causing her to go to the bathroom. Pt had to urinate and pass a bowel movement. Pt passed out and fell to the ground. Pt has no complaints at this time. Denies fever, chills, chest pain, sob, abdominal pain, n/v/d, hematuria, back pain, flank pain, headache, dizziness, melena, hematochezia, bruising. Objective - Vital Signs/Intake and Output Vital Signs (last 24 hours): Temp Pulse Resp BP Pulse Ox 100.4 F H 53 L 20 175/62 H 97 06/05/18 08:00 06/05/18 08:00 06/05/18 08:00 06/05/18 08:00 06/05/18 08:00 - Medications Medications: Current Medications Cinacalcet (Sensipar) 30 mg PO DAILY JUAN M Dextrose (Dextrose 50% Inj) 0 ml IV STAT PRN; Protocol PRN Reason: Hypoglycemia Protocol Dextrose (Glutose 15) 0 gm PO ONCE PRN; Protocol PRN Reason: Hypoglycemia Protocol Glucagon (Glucagen Diagnostic Kit) 0 mg IM STAT PRN; Protocol PRN Reason: Hypoglycemia Protocol Dextrose/Sodium Chloride (Dextrose 5%/0.45% Ns 1000 Ml) 1,000 mls @ 80 mls/hr IV .[id number] JUAN M Last Admin: 06/04/18 23:26 Dose: 80 mls/hr Dextrose (Dextrose 5% In Water 1000 Ml) 1,000 mls @ 0 mls/hr IV .Q0M PRN; Protocol PRN Reason: Hypoglycemia Protocol Losartan Potassium (Cozaar) 50 mg PO DAILY [facility] Magnesium Oxide (Mag-Ox) 400 mg PO BID [facility] Metoprolol Succinate (Toprol Xl) 50 mg PO DAILY [facility] Prednisone (Prednisone Tab) 5 mg PO DAILY JUAN M - Labs Labs: 06/05/18 08:24 06/05/18 08:24 - Constitutional Appears: Non-toxic, No Acute Distress, Chronically Ill - Eye Exam Eye Exam: EOMI, Normal appearance - ENT Exam ENT Exam: Mucous Membranes Moist Additional comments: (+) rhinorrhea with thick secretions, throat is clear - Respiratory Exam Respiratory Exam: Clear to Ausculation Bilateral. absent: Decreased Breath Sounds, Rales, Rhonchi, Wheezes, Respiratory Distress, Stridor - Cardiovascular Exam Cardiovascular Exam: REGULAR RHYTHM, +S1, +S2. absent: Tachycardia - GI/Abdominal Exam GI & Abdominal Exam: Soft, Normal Bowel Sounds. absent: Distended, Firm, Guarding, Rigid, Tenderness, Diminished Bowel Sounds - Extremities Exam Extremities Exam: Normal Capillary Refill, Pedal Edema (trace bilateral pitting edema). absent: Calf Tenderness, Tenderness - Back Exam Back Exam: NORMAL INSPECTION. absent: CVA tenderness (L), CVA tenderness (R), rash noted - Neurological Exam Neurological Exam: Alert, Awake, Oriented x3 (AAO to only place and person. Not time) - Psychiatric Exam Psychiatric exam: Normal Affect, Normal Mood - Skin Skin Exam: Dry, Normal Color, Warm. absent: Petechiae, Rash, Urticaria Assessment and Plan - Assessment and Plan (Free Text) Assessment: Syncopal episode -CT head without constrast 06/04: No significant interval change appreciated. Chronic nonspecific white matter changes. 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 Basal ganglia lacunar infarcts. If symptoms persist, consider correlation with MRI. -FOBT - f/u -H/H is 10.6 today -Normotensive, HR 60s on monitor -EKG sinus kelsea, HR 54 -ROMIs negative x3 -MRI brain w/o contrast shows no acute intracranial abnormality. 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 Mild chronic microangiopathic changes and mild age-related global parenchymal volume loss. -Carotid dopplers - no hemodynamically significant stenosis. -F/u echo -F/u Vit b12, Vitamin D, Folate, RPR, TSH, Free T4 Thrombocytopenia/Transaminitis -100.4 oral temp earlier this morning, no leukocytosis, no tachycardia -Platelets 33 on admission PLT 29 today -193 in 12/2017. Patient denies easy bruising or bleeding. -AST/ALT 68/15 - Previously normal in 12/2017 and before -No known history of thrombocytopenia, leukemia -Chemical DVT ppx contraindicated -3+ blood on UA -Home plavix held - F/u peripheral blood smear Abdominal Discomfort -CT abd/pelvis 06/04: Diminutive bilateral [place] kidneys with probable right renal cyst and additional too small to characterize 4 mm exophytic left renal mass. Right lower quadrant transplant kidney. No hydronephrosis or obstructing calculus identified. Mildly thick-walled incompletely distended urinary bladder. Recommend correlation with urinalysis. -Lipase 430. No evidence of pancreatitis on CT, and no pain on exam. DM -Humalog 7 U SC AMHS discontinued due to hypoglycemia -Lantus 30 U SC HS discontinued due to hypoglycemia -RISS -DM meds held overnight for hypoglycemia -F/u Hgb A1c, Lipid panel Acute on Chronic Renal Failure, History R Renal Transplant -BUN/CR 68/3.6. December 2017 BUN/Cr 19/1.1 - >300% increase in Cr -Continue Home Meds: -Tacrolimus 1mg x2 caps BID (confirmed with pt pharmacy) F/u tacrolimus level -Mycophenalate 180 mg x3 tabs BID (confirmed with pt pharmacy) -Prednisone 5mg PO daily (confirmed with pt pharmacy) -Sensipar 30 mg PO daily (confirmed with pt pharmacy) Nephrology, Dr. English, consulted. Considering the facts: When I confirmed meds with pt's pharmacy they were last filled with one month supply in April 2018. Pt presents with full bottles of medications from March 2018. Pt's inconsistency with taking meds. Additionally, 3+ protein and 3+ blood on UA. Dr. Mack Jones had a conversation with Dr. English: it is possible that the transplant is failing. Dr. English arranged acceptance at [facility] in [place]. Dr. Mack Jones is in the process of arranging transfer. Solumedrol 500 mg IVPB Q24H started. Will receive total of 3 doses. -D5/.45 NS @ 80cc/hr discontinued 4 mm exophytic left renal mass F/u renal us Hypomagnesemia, resolved -Repleted with Magnesium Oxide PO HTN -Toprol XL 50 mg PO daily -Amlodipine 5 mg PO added (confirmed with pt pharmacy) -Losartan 50 mg PO daily discontinued ?Dementia Fluoxetine 20 mg PO QD memantine 5 mg PO BID Nasal congestion Flu negative Rapid strep negative HIV negative PPx -Chemical DVT ppx C/I -SCDs -Mod consistent carb diet Dispo: transfer to [facility] in [place], pending bed availability. <Renny Jones - Last Filed: 06/07/18 18:21> Objective - Vital Signs/Intake and Output Vital Signs (last 24 hours): Temp Pulse Resp BP Pulse Ox 97.4 F L 71 20 176/65 H 98 06/06/18 16:00 06/06/18 16:00 06/06/18 16:00 06/06/18 16:00 06/06/18 16:00 - Labs Labs: 06/06/18 07:47 06/06/18 07:47 PT 10.2 SECONDS (9.7-12.2) 06/05/18 21:15 INR 0.9 06/05/18 21:15 APTT 23 SECONDS (21-34) 06/05/18 21:15 Attending/Attestation - Attestation I have personally seen and examined this patient.: Yes I have fully participated in the care of the patient.: Yes I have reviewed all pertinent clinical information, including history, physical exam and plan: Yes Notes (Text): 06/07/18 18:21 This is a late entry. Care of this patient was gone over in detail with resident Dr. Muñoz. Renny Jones D.O.
[2018-06-05] MEDS ORDERED: Metoprolol Succinate 50 mg XL Tab PO SCH (10:00)
[2018-06-05 10:23] VITALS: RESP 20
[2018-06-05] MEDS: Magnesium Oxide 400 mg Tab UD PO SCH ×2 (10:54→18:01)
[2018-06-05] MEDS: Metoprolol Succinate 50 mg XL Tab PO SCH (10:55)
--- NOTE | 2018-06-05 11:26 | VASCLAB ---
Date of service: 06/05/2018 PROCEDURE: Carotid Duplex Exam. HISTORY: syncope COMPARISON: None available. TECHNIQUE: Grayscale and duplex Doppler evaluation of the cervical carotid and vertebral arteries were performed. The common carotid, carotid bifurcations and cervical Internal Carotid Artery (ICA) and proximal External Carotid Artery (ECA) were evaluated. The vertebral arteries were evaluated for gross patency and flow direction. Report prepared by Paulo Duarte, BS, RVT FINDINGS: RIGHT CAROTID ARTERIES: 1. Common Carotid Artery: No significant focal plaque formation of the right common carotid artery. Maximum Peak Systolic velocity: 71 cm/sec: End-diastolic velocity 14 cm/sec. 2. Carotid Bifurcation: plaque formation. Maximum Peak Systolic velocity: 81 cm/sec: End-diastolic velocity 22 cm/sec. 3. Internal Carotid Artery: Plaque description: 3.1. Proximal Segment: Peak systolic velocity 75 cm/sec: End-diastolic velocity 20 cm/sec - % stenosis 0-15% 3.2. Middle Segment: Peak systolic velocity 97 cm/sec: End-diastolic velocity 34 cm/sec - % stenosis 0-15% 3.3. Distal Segment: Peak systolic velocity 85 cm/sec: End-diastolic velocity 22 cm/sec - % stenosis 0-15% 4. External Carotid Artery: No significant focal plaque formation. Peak systolic velocity 83 cm/sec 5. ICA/CCA Ratio: 1.4 LEFT CAROTID ARTERIES: 1. Common Carotid Artery: No significant focal plaque formation of the left common carotid artery. Maximum Peak Systolic velocity: 78 cm/sec: End-diastolic velocity 15 cm/sec. 2. Carotid Bifurcation: plaque formation. Maximum Peak Systolic velocity: 70 cm/sec: End-diastolic velocity 17 cm/sec. 3. Internal Carotid Artery: Plaque description: 3.1. Proximal Segment: Peak systolic velocity 72 cm/sec: End-diastolic velocity 18 cm/sec - % stenosis 0-15% 3.2. Middle Segment: Peak systolic velocity 80 cm/sec: End-diastolic velocity 29 cm/sec - % stenosis 0-15% 3.3. Distal Segment: Peak systolic velocity 120 cm/sec: End-diastolic velocity 38 cm/sec - % stenosis 0-15% 4. External Carotid Artery: No significant focal plaque formation. Peak systolic velocity 88 cm/sec 5. ICA/CCA Ratio: 1.5 VERTEBRAL ARTERIES: 1. Right Vertebral Artery: The right vertebral artery flow direction is antegrade. 2. Left Vertebral Artery: The left vertebral artery flow direction is antegrade. OTHER FINDINGS: 1. Right Brachial Blood pressure: 186 mmHg. 2. Left Brachial Blood pressure: mmHg. 3. No atherosclerotic calcification present IMPRESSION: RIGHT: Duplex scan does not suggest hemodynamically significant stenosis of the right extracranial carotid arteries. LEFT: Duplex scan does not suggest hemodynamically significant stenosis of the left extracranial carotid arteries.
[2018-06-05] MEDS: Dextrose 5%/0.45% NS 1,000 ML IV SCH (12:03)
[2018-06-05] MEDS ORDERED: Pneumococcal 23-Valent Vaccine IM ONE (12:25)
[2018-06-05] MEDS: (Novolin R) Insulin Human Regular 100 units/ml vial SC SCH ×3 (12:35→21:31)
--- NOTE | 2018-06-05 13:50 | MRI ---
Date of service: 06/05/2018 PROCEDURE: MRI BRAIN WITHOUT CONTRAST HISTORY: syncopal episode COMPARISON: CT head without contrast from 06/04/2018. TECHNIQUE: Multiplanar, multisequence MR images of the brain were obtained without intravenous contrast enhancement. FINDINGS: HEMORRHAGE: None DWI: No evidence of an acute or early subacute infarction. BRAIN PARENCHYMA: There is a right occipital porencephalic cyst with surrounding gliosis. There are mild chronic microangiopathic changes. There is no mass, mass effect or abnormal extra-axial fluid collection. The midline sagittal structures are normal. VENTRICLES: There is mild age-related global parenchymal volume loss and proportionate enlargement of the ventricles and cortical sulci. CRANIUM: There is normal bone marrow signal pattern. ORBITS: Grossly unremarkable. PARANASAL SINUSES/MASTOIDS: There is mild mucosal thickening in the paranasal sinuses and fluid in the left maxillary sinus. There are trace mastoid effusions. VASCULAR SYSTEM: There are normal signal voids in the larger intracranial arteries. OTHER FINDINGS: None. IMPRESSION: 1. No acute intracranial abnormality. 2. 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 3. Mild chronic microangiopathic changes and mild age-related global parenchymal volume loss.
--- NOTE | 2018-06-05 15:24 | CP.PCM.CON ---
History of Present Illness - History of Present Illness History of Present Illness: Nephrology Consultation Note: Assessment: critical BETH in setting of memory impairment with non-compliance to meds and UA 3+ protein 3+ blood: concerns for acute rejection HTN, DM, ESRD s/p LURT @ [facility] in 2009 thrombocytopenia syncope Plan no acute need for renal replacement therapy at this time but may need soon and will need close follow up Hypertension control with meds as ordered. pt not on RAAS kyung, will defer it due to BETH Monitor I/O, daily weights and renal function while in hospital continue with IVF. monitor respi status closely Kidney Transplant: continue with tacrolimus and myfortic as ordered. check ta crolimus trough level. pt on prednisone 5 mg/d called transplant center as concerns for acute rejection and pt will benefit from transfer to a transplant center likely will need kidney biopsy once plat count better. 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 SW eval for home situation. Dose meds/antibiotics for reduced GFR. Avoid fleets enema/magnesium based laxatives. Avoid nephrotoxins/NSAIDs/ iodinated contrast (unless needed emergently) Glycemic control, renal diet. Further work up for as per primary team. Thanks for allowing me to participate in care of your patient. Will follow with you. Please call if any Qs. had d/w team. called daughter but no answer. 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 Denies chest pain, palpitation, improved shortness of breath Denies OTC/herbal meds/NSAIDs No recent iodinated contrast exposure. no GI symptoms at present. report diarrhoea episode which had resolved ROS: denies CP/nausea/vomiting now. no SOB at present. no nausea denies pain abdomen. denies urine complaints rest other negative except as mentioned in HPI. overall hx limited from pt Physical Examination: General Appearance: Comfortable, in no acute respiratory distress, co-operative. Vitals reviewed and noted as below Head; Atraumatic, normocephalic ENT: no ulcers no thrush. Tongue is midline. Oropharynx: no rash or ulcers. EYES: b/l PERRLA Neck; supple no lymphadenopathy, no thyromegaly or bruit Lungs: Normal respiratory rate/effort. Breath sounds b/l with equal clear Heart: Normal rate. s1s2 normal. No rub or gallop. Extremities: no pitting edema. No varicose veins. Neurological: Patient is awake alert and follow commands no focal deficit. oriented to place and person. has memory impairment Skin: dry and warm. Normal turgor. No rash. Palpitation: Normal elasticity for age Abdomen: Abdomen is distended . Bowel sounds +. There is no abdominal tenderness, no guarding/rigidity or organomegaly Psych: lack insight. has normal affect/mood MSK: no specific joint tenderness or swelling. Digits and nails normal, no deformity : Rt transplant kidney non tender Labs/imaging/EKG reviewed. Past medical history, past surgical history, social history, allergy reviewed and noted as below Family hx; no hx of CKD. non contributory UA 3+ protein 3+ blood CPK wnl lipase 430 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) - HEMATOLOGICAL/ONCOLOGICAL Hx Human Immunodeficiency Virus (HIV): No - INTEGUMENTARY Hx Dermatological Problems: No - MUSCULOSKELETAL/RHEUMATOLOGICAL Hx Falls: No - GASTROINTESTINAL Hx Gastrointestinal Disorders: No - GENITOURINARY/GYNECOLOGICAL Hx Sexually Transmitted Disorders: No - PSYCHIATRIC Hx Anxiety: Yes Hx Depression: Yes Hx Substance Use: No - SURGICAL HISTORY Hx Kidney Transplant: Yes (right kidney 6 years ago) - ANESTHESIA Hx Anesthesia: Yes Hx Anesthesia Reactions: No Meds Allergies/Adverse Reactions: Allergies Allergy/AdvReac Type Severity Reaction Status Date / Time enalapril Allergy Severe ANGIOEDEMA Verified 06/04/18 17:06 - Medications Medications: Current Medications Acetaminophen (Tylenol 325mg Tab) 650 mg PO Q6 PRN PRN Reason: Fever >100.4 F Amlodipine Besylate (Norvasc) 5 mg PO DAILY [facility] Last Admin: 06/05/18 10:55 Dose: 5 mg Cinacalcet (Sensipar) 30 mg PO DAILY [facility] Last Admin: 06/05/18 13:54 Dose: 30 mg Dextrose (Dextrose 50% Inj) 0 ml IV STAT PRN; Protocol PRN Reason: Hypoglycemia Protocol Dextrose (Glutose 15) 0 gm PO ONCE PRN; Protocol PRN Reason: Hypoglycemia Protocol Fluoxetine HCl (Prozac) 20 mg PO DAILY [facility] Glucagon (Glucagen Diagnostic Kit) 0 mg IM STAT PRN; Protocol PRN Reason: Hypoglycemia Protocol Dextrose/Sodium Chloride (Dextrose 5%/0.45% Ns 1000 Ml) 1,000 mls @ 80 mls/hr IV .[id number] [facility] Last Admin: 06/05/18 12:03 Dose: Not Given Dextrose (Dextrose 5% In Water 1000 Ml) 1,000 mls @ 0 mls/hr IV .Q0M PRN; Protocol PRN Reason: Hypoglycemia Protocol Influenza Virus Vaccine (Flucelvax Quad [id number] Syr) 60 mcg IM .ONCE ONE Stop: 06/07/18 10:01 Insulin Human Regular (Novolin R) 0 unit SC [facility]; Protocol Last Admin: 06/05/18 12:35 Dose: 2 units Magnesium Oxide (Mag-Ox) 400 mg PO BID [facility] Last Admin: 06/05/18 10:54 Dose: 400 mg Memantine (Namenda) 5 mg PO DAILY [facility] Metoprolol Succinate (Toprol Xl) 50 mg PO DAILY [facility] Last Admin: 06/05/18 10:55 Dose: 50 mg Mycophenolate Mofetil (Cellcept Cap) 540 mg PO BID [facility] Pneumococcal Polyvalent Vaccine (Pneumovax 23 Vaccine) 0.5 ml IM .ONCE ONE Stop: 06/07/18 10:01 Prednisone (Prednisone Tab) 5 mg PO DAILY [facility] Last Admin: 06/05/18 10:54 Dose: 5 mg Rosuvastatin Calcium (Crestor) 5 mg PO HS [facility] Tacrolimus (Prograf Cap) 2 mg PO Q12 [facility] Results - Vital Signs Recent Vital Signs: Last Vital Signs Temp 98.1 F 06/05/18 12:15 Pulse 53 L 06/05/18 08:00 Resp 20 06/05/18 08:00 BP 137/65 06/05/18 12:15 Pulse Ox 97 06/05/18 08:00 - Labs Result Diagrams: 06/06/18 07:47 06/06/18 07:47 Labs: Laboratory Results - last 24 hr 06/04/18 06/04/18 06/04/18 16:17 19:05 19:05 WBC 8.2 RBC 4.24 Hgb 11.9 Hct 36.1 MCV 85.1 MCH 28.1 MCHC 33.0 RDW 13.9 Plt Count 32 L D MPV 12.1 H Neut % (Auto) 74.9 Lymph % (Auto) 14.0 L [place] % (Auto) 10.4 H Eos % (Auto) 0.1 Baso % (Auto) 0.6 Neut # (Auto) 6.2 Lymph # (Auto) 1.2 [place] # (Auto) 0.9 H Eos # (Auto) 0.0 Baso # (Auto) 0.1 Differential Comment Sodium 134 Potassium 4.4 Chloride 101 Carbon Dioxide 25 Anion Gap 12 BUN 68 H Creatinine 3.6 H Est GFR ( Amer) 15 Est GFR (Non-Af Amer) 12 POC Glucose (mg/dL) 85 Random Glucose 64 L D Calcium 9.4 Phosphorus Magnesium Total Bilirubin 1.6 H AST 68 H D ALT 15 Alkaline Phosphatase 53 Total Creatine Kinase CK-MB (Mass) Troponin I 0.0570 Total Protein 6.6 Albumin 3.9 Globulin 2.7 Albumin/Globulin Ratio 1.4 Lipase 430 H Urine Color Urine Clarity Urine pH Ur Specific [place] Urine Protein Urine Glucose (UA) Urine Ketones Urine Blood Urine Nitrate Urine Bilirubin Urine Urobilinogen Ur Leukocyte Esterase Urine WBC (Auto) Urine RBC (Auto) Ur Squamous Epith Cells Urine Bacteria Hyaline Casts Influenza Typ A,B (EIA) Grp A Beta Strep Ag 06/04/18 06/04/18 06/05/18 20:31 23:23 00:27 WBC RBC Hgb Hct MCV MCH MCHC RDW Plt Count MPV Neut % (Auto) Lymph % (Auto) [place] % (Auto) Eos % (Auto) Baso % (Auto) Neut # (Auto) Lymph # (Auto) [place] # (Auto) Eos # (Auto) Baso # (Auto) Differential Comment Sodium Potassium Chloride Carbon Dioxide Anion Gap BUN Creatinine Est GFR ( Amer) Est GFR (Non-Af Amer) POC Glucose (mg/dL) 74 Random Glucose Calcium Phosphorus Magnesium Total Bilirubin AST ALT Alkaline Phosphatase Total Creatine Kinase 124 CK-MB (Mass) 0.50 Troponin I 0.0400 Total Protein Albumin Globulin Albumin/Globulin Ratio Lipase Urine Color Yellow Urine Clarity Hazy Urine pH 5.0 Ur Specific [place] 1.013 Urine Protein 3+ H Urine Glucose (UA) Normal Urine Ketones Negative Urine Blood 3+ H Urine Nitrate Negative Urine Bilirubin Negative Urine Urobilinogen Normal Ur Leukocyte Esterase Neg Urine WBC (Auto) 3 Urine RBC (Auto) 1 Ur Squamous Epith Cells 4 Urine Bacteria Rare Hyaline Casts 0-2 Influenza Typ A,B (EIA) Grp A Beta Strep Ag 06/05/18 06/05/18 06/05/18 06:16 08:24 08:24 WBC 5.3 RBC 3.77 L Hgb 10.6 L Hct 32.1 L MCV 85.0 MCH 28.2 MCHC 33.2 RDW 14.1 Plt Count 29 L* MPV 11.1 Neut % (Auto) 62.4 Lymph % (Auto) 24.2 [place] % (Auto) 12.3 H Eos % (Auto) 0.6 Baso % (Auto) 0.5 Neut # (Auto) 3.3 Lymph # (Auto) 1.3 [place] # (Auto) 0.6 Eos # (Auto) 0.0 Baso # (Auto) 0.0 Differential Comment Sodium 135 Potassium 4.2 Chloride 106 Carbon Dioxide 24 Anion Gap 10 BUN 69 H Creatinine 3.9 H Est GFR ( Amer) 14 Est GFR (Non-Af Amer) 11 POC Glucose (mg/dL) 156 H Random Glucose 133 H D Calcium 9.0 Phosphorus 4.3 Magnesium 1.9 Total Bilirubin 1.1 AST 61 H ALT 16 Alkaline Phosphatase 53 Total Creatine Kinase CK-MB (Mass) Troponin I Total Protein 5.8 L Albumin 3.2 L Globulin 2.6 Albumin/Globulin Ratio 1.2 Lipase Urine Color Urine Clarity Urine pH Ur Specific [place] Urine Protein Urine Glucose (UA) Urine Ketones Urine Blood Urine Nitrate Urine Bilirubin Urine Urobilinogen Ur Leukocyte Esterase Urine WBC (Auto) Urine RBC (Auto) Ur Squamous Epith Cells Urine Bacteria Hyaline Casts Influenza Typ A,B (EIA) Grp A Beta Strep Ag 06/05/18 06/05/18 06/05/18 08:24 11:18 11:18 WBC RBC Hgb Hct MCV MCH MCHC RDW Plt Count MPV Neut % (Auto) Lymph % (Auto) [place] % (Auto) Eos % (Auto) Baso % (Auto) Neut # (Auto) Lymph # (Auto) [place] # (Auto) Eos # (Auto) Baso # (Auto) Differential Comment Sodium Potassium Chloride Carbon Dioxide Anion Gap BUN Creatinine Est GFR ( Amer) Est GFR (Non-Af Amer) POC Glucose (mg/dL) Random Glucose Calcium Phosphorus Magnesium Total Bilirubin AST ALT Alkaline Phosphatase Total Creatine Kinase 90 CK-MB (Mass) 0.46 Troponin I 0.0290 Total Protein Albumin Globulin Albumin/Globulin Ratio Lipase Urine Color Urine Clarity Urine pH Ur Specific [place] Urine Protein Urine Glucose (UA) Urine Ketones Urine Blood Urine Nitrate Urine Bilirubin Urine Urobilinogen Ur Leukocyte Esterase Urine WBC (Auto) Urine RBC (Auto) Ur Squamous Epith Cells Urine Bacteria Hyaline Casts Influenza Typ A,B (EIA) Negative for flu a/b Grp A Beta Strep Ag Negative 06/05/18 11:21 WBC RBC Hgb Hct MCV MCH MCHC RDW Plt Count MPV Neut % (Auto) Lymph % (Auto) [place] % (Auto) Eos % (Auto) Baso % (Auto) Neut # (Auto) Lymph # (Auto) [place] # (Auto) Eos # (Auto) Baso # (Auto) Differential Comment Sodium Potassium Chloride Carbon Dioxide Anion Gap BUN Creatinine Est GFR ( Amer) Est GFR (Non-Af Amer) POC Glucose (mg/dL) 272 H Random Glucose Calcium Phosphorus Magnesium Total Bilirubin AST ALT Alkaline Phosphatase Total Creatine Kinase CK-MB (Mass) Troponin I Total Protein Albumin Globulin Albumin/Globulin Ratio Lipase Urine Color Urine Clarity Urine pH Ur Specific [place] Urine Protein Urine Glucose (UA) Urine Ketones Urine Blood Urine Nitrate Urine Bilirubin Urine Urobilinogen Ur Leukocyte Esterase Urine WBC (Auto) Urine RBC (Auto) Ur Squamous Epith Cells Urine Bacteria Hyaline Casts Influenza Typ A,B (EIA) Grp A Beta Strep Ag
[2018-06-05] MEDS ORDERED: methylPREDNISolone 500 MG in Sodium Chloride 0.9% 100 ML IVPB ONE (17:45)
[2018-06-05] MEDS: MYCOPHENOLIC ACID 180 MG PO SCH (18:01)
--- NOTE | 2018-06-05 19:54 | CP.PCM.CON ---
History of Present Illness - History of Present Illness History of Present Illness: 72 year old female with a history of early dementia, HTN, DM, renal disease s/p renal transplant in 2009, presenting after fall/syncope, with anemia, thrombocytopenia, and drug induced thrombotic microangiopathy. The patient is on clopidogrel and tacrolimus. Per her daughter, she has not been compliant with her medication but notes she may have been taking to much or not at all. She has baseline mild forgetfulness and concern for early dementia but notes she has been more forgetful these past few days. Review of her peripheral smear shows several schistocytes per high power field, low platelet count and no platelet clumping. Past medical history: HTN, DM, renal disease s/p renal transplant in 2009. Past surgical history: renal transplant, Family history: Denies hematologic and oncologic problems Social history: Former tobacco Allergies: Enalapril. Review of systems: All remaining review of systems including HEENT, cardiovascular, respiratory, gastrointestinal, genitourinary, musculoskeletal, dermatologic, neurologic, and psychiatric are negative unless mentioned in the HPI. 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) - HEMATOLOGICAL/ONCOLOGICAL Hx Human Immunodeficiency Virus (HIV): No - INTEGUMENTARY Hx Dermatological Problems: No - MUSCULOSKELETAL/RHEUMATOLOGICAL Hx Falls: No - GASTROINTESTINAL Hx Gastrointestinal Disorders: No - GENITOURINARY/GYNECOLOGICAL Hx Sexually Transmitted Disorders: No - PSYCHIATRIC Hx Anxiety: Yes Hx Depression: Yes Hx Substance Use: No - SURGICAL HISTORY Hx Kidney Transplant: Yes (right kidney 6 years ago) - ANESTHESIA Hx Anesthesia: Yes Hx Anesthesia Reactions: No Meds Allergies/Adverse Reactions: Allergies Allergy/AdvReac Type Severity Reaction Status Date / Time enalapril Allergy Severe ANGIOEDEMA Verified 06/04/18 17:06 - Medications Medications: Current Medications Acetaminophen (Tylenol 325mg Tab) 650 mg PO Q6 PRN PRN Reason: Fever >100.4 F Amlodipine Besylate (Norvasc) 5 mg PO DAILY [facility] Last Admin: 06/05/18 10:55 Dose: 5 mg Cinacalcet (Sensipar) 30 mg PO DAILY [facility] Last Admin: 06/05/18 13:54 Dose: 30 mg Dextrose (Dextrose 50% Inj) 0 ml IV STAT PRN; Protocol PRN Reason: Hypoglycemia Protocol Dextrose (Glutose 15) 0 gm PO ONCE PRN; Protocol PRN Reason: Hypoglycemia Protocol Fluoxetine HCl (Prozac) 20 mg PO DAILY [facility] Glucagon (Glucagen Diagnostic Kit) 0 mg IM STAT PRN; Protocol PRN Reason: Hypoglycemia Protocol Home Med (Patient's Own Medication) 3 tab PO BID [facility] Last Admin: 06/05/18 18:01 Dose: 3 tab Dextrose (Dextrose 5% In Water 1000 Ml) 1,000 mls @ 0 mls/hr IV .Q0M PRN; Protocol PRN Reason: Hypoglycemia Protocol Influenza Virus Vaccine (Flucelvax Quad [id number] Syr) 60 mcg IM .ONCE ONE Stop: 06/07/18 10:01 Insulin Human Regular (Novolin R) 0 unit SC [facility]; Protocol Last Admin: 06/05/18 18:16 Dose: 3 units Memantine (Namenda) 5 mg PO BID [facility] Metoprolol Succinate (Toprol Xl) 50 mg PO DAILY [facility] Last Admin: 06/05/18 10:55 Dose: 50 mg Pneumococcal Polyvalent Vaccine (Pneumovax 23 Vaccine) 0.5 ml IM .ONCE ONE Stop: 06/07/18 10:01 Prednisone (Prednisone Tab) 5 mg PO DAILY [facility] Last Admin: 06/05/18 10:54 Dose: 5 mg Rosuvastatin Calcium (Crestor) 5 mg PO HS [facility] Tacrolimus (Prograf Cap) 2 mg PO Q12 [facility] Physical Exam - Head Exam Head Exam: ATRAUMATIC - Eye Exam Eye Exam: Normal appearance - ENT Exam ENT Exam: Mucous Membranes Dry - Respiratory Exam Respiratory Exam: NORMAL BREATHING PATTERN - Cardiovascular Exam Cardiovascular Exam: +S1, +S2 - GI/Abdominal Exam GI & Abdominal Exam: Normal Bowel Sounds - Extremities Exam Extremities exam: Positive for: pedal edema - Psychiatric Exam Psychiatric exam: Normal Affect, Normal Mood - Skin Skin Exam: Warm Results - Vital Signs Recent Vital Signs: Last Vital Signs Temp 98.1 F 06/05/18 16:12 Pulse 60 06/05/18 16:12 Resp 20 06/05/18 16:12 BP 147/73 06/05/18 16:12 Pulse Ox 95 06/05/18 16:12 - Labs Result Diagrams: 06/05/18 08:24 06/05/18 08:24 Labs: Laboratory Results - last 24 hr 06/04/18 06/04/18 06/04/18 19:05 19:05 20:31 WBC 8.2 RBC 4.24 Hgb 11.9 Hct 36.1 MCV 85.1 MCH 28.1 MCHC 33.0 RDW 13.9 Plt Count 32 L D MPV 12.1 H Neut % (Auto) 74.9 Lymph % (Auto) 14.0 L [place] % (Auto) 10.4 H Eos % (Auto) 0.1 Baso % (Auto) 0.6 Neut # (Auto) 6.2 Lymph # (Auto) 1.2 [place] # (Auto) 0.9 H Eos # (Auto) 0.0 Baso # (Auto) 0.1 Differential Comment Sodium 134 Potassium 4.4 Chloride 101 Carbon Dioxide 25 Anion Gap 12 BUN 68 H Creatinine 3.6 H Est GFR ( Amer) 15 Est GFR (Non-Af Amer) 12 POC Glucose (mg/dL) Random Glucose 64 L D Calcium 9.4 Phosphorus Magnesium Total Bilirubin 1.6 H AST 68 H D ALT 15 Alkaline Phosphatase 53 Total Creatine Kinase CK-MB (Mass) Troponin I 0.0570 Total Protein 6.6 Albumin 3.9 Globulin 2.7 Albumin/Globulin Ratio 1.4 Lipase 430 H Urine Color Yellow Urine Clarity Hazy Urine pH 5.0 Ur Specific [place] 1.013 Urine Protein 3+ H Urine Glucose (UA) Normal Urine Ketones Negative Urine Blood 3+ H Urine Nitrate Negative Urine Bilirubin Negative Urine Urobilinogen Normal Ur Leukocyte Esterase Neg Urine WBC (Auto) 3 Urine RBC (Auto) 1 Ur Squamous Epith Cells 4 Urine Bacteria Rare Hyaline Casts 0-2 HIV 1&2 Antibody Screen Influenza Typ A,B (EIA) Grp A Beta Strep Ag 06/04/18 06/05/18 06/05/18 23:23 00:27 06:16 WBC RBC Hgb Hct MCV MCH MCHC RDW Plt Count MPV Neut % (Auto) Lymph % (Auto) [place] % (Auto) Eos % (Auto) Baso % (Auto) Neut # (Auto) Lymph # (Auto) [place] # (Auto) Eos # (Auto) Baso # (Auto) Differential Comment Sodium Potassium Chloride Carbon Dioxide Anion Gap BUN Creatinine Est GFR ( Amer) Est GFR (Non-Af Amer) POC Glucose (mg/dL) 74 156 H Random Glucose Calcium Phosphorus Magnesium Total Bilirubin AST ALT Alkaline Phosphatase Total Creatine Kinase 124 CK-MB (Mass) 0.50 Troponin I 0.0400 Total Protein Albumin Globulin Albumin/Globulin Ratio Lipase Urine Color Urine Clarity Urine pH Ur Specific [place] Urine Protein Urine Glucose (UA) Urine Ketones Urine Blood Urine Nitrate Urine Bilirubin Urine Urobilinogen Ur Leukocyte Esterase Urine WBC (Auto) Urine RBC (Auto) Ur Squamous Epith Cells Urine Bacteria Hyaline Casts HIV 1&2 Antibody Screen Influenza Typ A,B (EIA) Grp A Beta Strep Ag 06/05/18 06/05/18 06/05/18 08:24 08:24 08:24 WBC 5.3 RBC 3.77 L Hgb 10.6 L Hct 32.1 L MCV 85.0 MCH 28.2 MCHC 33.2 RDW 14.1 Plt Count 29 L* MPV 11.1 Neut % (Auto) 62.4 Lymph % (Auto) 24.2 [place] % (Auto) 12.3 H Eos % (Auto) 0.6 Baso % (Auto) 0.5 Neut # (Auto) 3.3 Lymph # (Auto) 1.3 [place] # (Auto) 0.6 Eos # (Auto) 0.0 Baso # (Auto) 0.0 Differential Comment Sodium 135 Potassium 4.2 Chloride 106 Carbon Dioxide 24 Anion Gap 10 BUN 69 H Creatinine 3.9 H Est GFR ( Amer) 14 Est GFR (Non-Af Amer) 11 POC Glucose (mg/dL) Random Glucose 133 H D Calcium 9.0 Phosphorus 4.3 Magnesium 1.9 Total Bilirubin 1.1 AST 61 H ALT 16 Alkaline Phosphatase 53 Total Creatine Kinase 90 CK-MB (Mass) 0.46 Troponin I 0.0290 Total Protein 5.8 L Albumin 3.2 L Globulin 2.6 Albumin/Globulin Ratio 1.2 Lipase Urine Color Urine Clarity Urine pH Ur Specific [place] Urine Protein Urine Glucose (UA) Urine Ketones Urine Blood Urine Nitrate Urine Bilirubin Urine Urobilinogen Ur Leukocyte Esterase Urine WBC (Auto) Urine RBC (Auto) Ur Squamous Epith Cells Urine Bacteria Hyaline Casts HIV 1&2 Antibody Screen Influenza Typ A,B (EIA) Grp A Beta Strep Ag 06/05/18 06/05/18 06/05/18 11:18 11:18 11:21 WBC RBC Hgb Hct MCV MCH MCHC RDW Plt Count MPV Neut % (Auto) Lymph % (Auto) [place] % (Auto) Eos % (Auto) Baso % (Auto) Neut # (Auto) Lymph # (Auto) [place] # (Auto) Eos # (Auto) Baso # (Auto) Differential Comment Sodium Potassium Chloride Carbon Dioxide Anion Gap BUN Creatinine Est GFR ( Amer) Est GFR (Non-Af Amer) POC Glucose (mg/dL) 272 H Random Glucose Calcium Phosphorus Magnesium Total Bilirubin AST ALT Alkaline Phosphatase Total Creatine Kinase CK-MB (Mass) Troponin I Total Protein Albumin Globulin Albumin/Globulin Ratio Lipase Urine Color Urine Clarity Urine pH Ur Specific [place] Urine Protein Urine Glucose (UA) Urine Ketones Urine Blood Urine Nitrate Urine Bilirubin Urine Urobilinogen Ur Leukocyte Esterase Urine WBC (Auto) Urine RBC (Auto) Ur Squamous Epith Cells Urine Bacteria Hyaline Casts HIV 1&2 Antibody Screen Influenza Typ A,B (EIA) Negative for flu a/b Grp A Beta Strep Ag Negative 06/05/18 06/05/18 14:16 16:25 WBC RBC Hgb Hct MCV MCH MCHC RDW Plt Count MPV Neut % (Auto) Lymph % (Auto) [place] % (Auto) Eos % (Auto) Baso % (Auto) Neut # (Auto) Lymph # (Auto) [place] # (Auto) Eos # (Auto) Baso # (Auto) Differential Comment Sodium Potassium Chloride Carbon Dioxide Anion Gap BUN Creatinine Est GFR ( Amer) Est GFR (Non-Af Amer) POC Glucose (mg/dL) 246 H Random Glucose Calcium Phosphorus Magnesium Total Bilirubin AST ALT Alkaline Phosphatase Total Creatine Kinase CK-MB (Mass) Troponin I Total Protein Albumin Globulin Albumin/Globulin Ratio Lipase Urine Color Urine Clarity Urine pH Ur Specific [place] Urine Protein Urine Glucose (UA) Urine Ketones Urine Blood Urine Nitrate Urine Bilirubin Urine Urobilinogen Ur Leukocyte Esterase Urine WBC (Auto) Urine RBC (Auto) Ur Squamous Epith Cells Urine Bacteria Hyaline Casts HIV 1&2 Antibody Screen Negative Influenza Typ A,B (EIA) Grp A Beta Strep Ag Assessment & Plan (1) Thrombotic microangiopathy Assessment and Plan: suspect medication induced thrombotic microangiopathy clopidogrel stopped recommend stopping tacrolimus as well no current indication for plasma exchange at this point and I am hopeful she will improve with holding the above medication should she not improve or shows signs of clinical deterioration, she will require plasma exchange tacrolimus level and [id number] to be checked Status: Acute (2) Thrombocytopenia Assessment and Plan: secondary to microangiopathic hemolysis cont. to monitor for signs of bleeding CBC in AM Status: Acute (3) Anemia Assessment and Plan: microangiopathic hemolysis anemia of CKD transfusion support PRN Thank you for this interesting consult. Status: Acute
[2018-06-05 21:34] LABS: INR 0.9; PROTHROMBIN TIME 10.2 SECONDS (9.7-12.2)
--- NOTE | 2018-06-06 07:19 | CP.PCM.PN ---
<Jerod Muñoz - Last Filed: 06/06/18 16:18> Subjective - Date & Time of Evaluation Date of Evaluation: 06/06/18 Time of Evaluation: 07:45 - Subjective Subjective: Medicine progress note for Dr. Mack Jones Pt seen and examined at bedside. Continues to report nasal congestion, URI symptoms. Denies fever, chills, chest pain, sob, abdominal pain, n/v/d, hematuria, back pain, flank pain, headache, dizziness, melena, hematochezia, bruising. She has not had a bowel movement since being admitted. She is pending transfer to [facility]. Objective - Vital Signs/Intake and Output Vital Signs (last 24 hours): Temp Pulse Resp BP Pulse Ox 97.8 F 55 L 20 147/68 94 L 06/05/18 23:36 06/05/18 23:36 06/05/18 23:36 06/05/18 23:36 06/05/18 23:36 - Medications Medications: Current Medications Acetaminophen (Tylenol 325mg Tab) 650 mg PO Q6 PRN PRN Reason: Fever >100.4 F Amlodipine Besylate (Norvasc) 5 mg PO DAILY [facility] Last Admin: 06/05/18 10:55 Dose: 5 mg Cinacalcet (Sensipar) 30 mg PO DAILY [facility] Last Admin: 06/05/18 13:54 Dose: 30 mg Dextrose (Dextrose 50% Inj) 0 ml IV STAT PRN; Protocol PRN Reason: Hypoglycemia Protocol Dextrose (Glutose 15) 0 gm PO ONCE PRN; Protocol PRN Reason: Hypoglycemia Protocol Fluoxetine HCl (Prozac) 20 mg PO DAILY [facility] Glucagon (Glucagen Diagnostic Kit) 0 mg IM STAT PRN; Protocol PRN Reason: Hypoglycemia Protocol Home Med (Patient's Own Medication) 3 tab PO BID [facility] Last Admin: 06/05/18 18:01 Dose: 3 tab Dextrose (Dextrose 5% In Water 1000 Ml) 1,000 mls @ 0 mls/hr IV .Q0M PRN; Protocol PRN Reason: Hypoglycemia Protocol Influenza Virus Vaccine (Flucelvax Quad [id number] Syr) 60 mcg IM .ONCE ONE Stop: 06/07/18 10:01 Insulin Human Regular (Novolin R) 0 unit SC [facility]; Protocol Last Admin: 06/05/18 21:31 Dose: Not Given Memantine (Namenda) 5 mg PO BID [facility] Metoprolol Succinate (Toprol Xl) 50 mg PO DAILY [facility] Last Admin: 06/05/18 10:55 Dose: 50 mg Pneumococcal Polyvalent Vaccine (Pneumovax 23 Vaccine) 0.5 ml IM .ONCE ONE Stop: 06/07/18 10:01 Prednisone (Prednisone Tab) 5 mg PO DAILY [facility] Last Admin: 06/05/18 10:54 Dose: 5 mg Rosuvastatin Calcium (Crestor) 5 mg PO HS [facility] Last Admin: 06/05/18 22:51 Dose: 5 mg - Labs Labs: 06/05/18 08:24 06/05/18 08:24 PT 10.2 SECONDS (9.7-12.2) 06/05/18 21:15 INR 0.9 06/05/18 21:15 APTT 23 SECONDS (21-34) 06/05/18 21:15 - Additional Findings Additional findings: - Constitutional Appears: Non-toxic, No Acute Distress, Chronically Ill - Eye Exam Eye Exam: EOMI, Normal appearance - ENT Exam ENT Exam: Mucous Membranes Moist Additional comments: (+) rhinorrhea with thick secretions, throat is clear. no bleeding - Respiratory Exam Respiratory Exam: Clear to Ausculation Bilateral. absent: Decreased Breath Sounds, Rales, Rhonchi, Wheezes, Respiratory Distress, Stridor - Cardiovascular Exam Cardiovascular Exam: REGULAR RHYTHM, +S1, +S2. absent: Tachycardia - GI/Abdominal Exam GI & Abdominal Exam: Soft, Normal Bowel Sounds. absent: Distended, Firm, Guarding, Rigid, Tenderness, Diminished Bowel Sounds - Extremities Exam Extremities Exam: Normal Capillary Refill. absent: Calf Tenderness, Tenderness, Pedal edema - Back Exam Back Exam: NORMAL INSPECTION. absent: CVA tenderness (L), CVA tenderness (R), rash noted - Neurological Exam Neurological Exam: Alert, Awake, Oriented x3 (AAO to only place and person. Not time) - Psychiatric Exam Psychiatric exam: Normal Affect, Normal Mood - Skin Skin Exam: Dry, Normal Color, Warm. absent: Petechiae, Rash, Urticaria Assessment and Plan - Assessment and Plan (Free Text) Assessment: Syncopal episode -CT head without constrast 06/04: No significant interval change appreciated. Chronic nonspecific white matter changes. 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 Basal ganglia lacunar infarcts. If symptoms persist, consider correlation with MRI. -FOBT - f/u -H/H stable at 10.6 -Normotensive, HR 60s on monitor -EKG sinus kelsea, HR 54 -ROMIs negative x3 -MRI brain w/o contrast shows no acute intracranial abnormality. 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 Mild chronic microangiopathic changes and mild age-related global parenchymal volume loss. -Carotid dopplers - no hemodynamically significant stenosis. -Vit b12 normal 468, Vitamin D low 20.9, Folate normal 18.5, TSH normal 1.30, Free T4 borderline low 0.44 -F/u echo reading -f/u RPR Thrombocytopenia No known history of thrombocytopenia, leukemia Peripheral blood smear as read by me shows schistocytes F/u official report H/H is stable, no active bleeding; Head CT as above. Hematology/Oncology, Dr. Cruz, consulted. Suspect medication induced thrombotic microangiopathy as per hematology Recommend stopping tacrolimus as well No current indication for plasma exchange at this point and I am hopeful she will improve with holding the above medication Should she not improve or shows signs of clinical deterioration, she will require plasma exchange Tacrolimus level and [id number] to be checked -100.4 oral temp 3 no leukocytosis, no tachycardia -Platelets 33 on admission PLT 33 today. no indication for plasma exchange at [facility]. -Chemical DVT ppx contraindicated -3+ blood on UA -Home plavix held Anemia, normocytic H/H is stable 10.6/31.7; MCV is 84.7 Ferritin is high 797, F/u Iron, TIBC Likely anemia of CKD Absolute retic count is 1.6, indicating hypoproliferation Pt with CKD, renal transplant Abdominal Discomfort -CT abd/pelvis 06/04: Diminutive bilateral [place] kidneys with probable right renal cyst and additional too small to characterize 4 mm exophytic left renal mass. Right lower quadrant transplant kidney. No hydronephrosis or obstructing calculus identified. Mildly thick-walled incompletely distended urinary bladder. Recommend correlation with urinalysis. -Lipase 430. No evidence of pancreatitis on CT, and no pain on exam. DM -Humalog 7 U SC [facility] discontinued due to hypoglycemia -Lantus 30 U SC HS discontinued due to hypoglycemia -RISS -DM meds held overnight for hypoglycemia -Hgb A1c is 6.4 - Lipid panel shows TG/CHL/LDL/HDL is 172/280/171/46 Acute on Chronic Renal Failure, History R Renal Transplant -Renal function is worsening today. BUN/CR increased to 84/4.9, potassium is 5.3, Phosphate is 5.0, bicarb is 20.r -Continue Home Meds: -Tacrolimus 1mg x2 caps BID discontinued as may be cause of thrombotic microangiopathic thrombocytopenia F/u tacrolimus level -Mycophenalate 180 mg x3 tabs BID (confirmed with pt pharmacy) -Prednisone 5mg PO daily (confirmed with pt pharmacy) -Sensipar 30 mg PO daily (confirmed with pt pharmacy) Nephrology, Dr. English, consulted. Considering the facts: When I confirmed meds with pt's pharmacy they were last filled with one month supply in April 2018. Pt presents with full bottles of medications from March 2018. Pt's inconsistency with taking meds. Additionally, 3+ protein and 3+ blood on UA. Dr. Mack Jones had a conversation with Dr. English: it is possible that the transplant is failing. Dr. English arranged acceptance at [facility] in [place]. Dr. Mack Jones is in the process of arranging transfer. Solumedrol 500 mg IVPB Q24H started. Will receive total of 3 doses. 4 mm exophytic left renal mass F/u renal us Hypomagnesemia, resolved -Repleted with Magnesium Oxide PO -Continue to monitor HTN -Toprol XL 50 mg PO daily -Amlodipine 5 mg PO added (confirmed with pt pharmacy) -Losartan 50 mg PO daily discontinued ?Dementia Fluoxetine 20 mg PO QD Memantine 5 mg PO BID Nasal congestion Flu negative Rapid strep negative HIV negative PPx -Chemical DVT ppx C/I -SCDs -Mod consistent carb diet Dispo: transfer to [facility] in [place], pending bed availability. <Renny Jones - Last Filed: 06/07/18 18:37> Objective - Vital Signs/Intake and Output Vital Signs (last 24 hours): Temp Pulse Resp BP Pulse Ox 97.4 F L 71 20 176/65 H 98 06/06/18 16:00 06/06/18 16:00 06/06/18 16:00 06/06/18 16:00 06/06/18 16:00 - Labs Labs: 06/06/18 07:47 06/06/18 07:47 PT 10.2 SECONDS (9.7-12.2) 06/05/18 21:15 INR 0.9 06/05/18 21:15 APTT 23 SECONDS (21-34) 06/05/18 21:15 Attending/Attestation - Attestation I have personally seen and examined this patient.: Yes I have fully participated in the care of the patient.: Yes I have reviewed all pertinent clinical information, including history, physical exam and plan: Yes Notes (Text): 06/07/18 18:22 This is a late entry. Care of this patient was gone over in detail with resident Dr. Muñoz. Spoke with Renal Transplant Specialist Dr. Gil Palacios [phone] at [facility] on 06/05/18 and explained patient history. He will perform biopsy of transplant kidney once platelets start to rise. Dr. Palacios has arranged for acceptance of patient to their hospitalist service and has spoken with Dr. Lorri Jones [phone] with whom I also spoke with on 06/05/18 after my conve rsation with Dr. Palacios. I spoke with Hospitalist Dr. Bernstein on 06/06/18 and also went over history of patient with her. I went over plan of care with patient's daughter via phone and then in person 06/06/18. Renny Jones D.O.
[2018-06-06 07:52] VITALS: TEMP 97.4
[2018-06-06 08:08] LABS: BASO % 0.2 % (0.0-2.0); HEMOGLOBIN 10.6 g/dL (11.0-16.0); LYMPH # 0.9 K/uL (1.0-4.3); LYMPH % 23.6 % (20.0-40.0); MEAN CELL VOLUME 84.7 fL (81.0-99.0); MEAN CORPUSCULAR HEMOGLOBIN 28.3 pg (27.0-31.0); MEAN CORPUSCULAR HGB CONC 33.4 g/dL (33.0-37.0); MEAN PLATELET VOLUME 12.6 fL (7.2-11.7); MONO # 0.1 K/uL (0.0-0.8); MONO % 2.7 % (0.0-10.0); NEUT # 2.7 K/uL (1.8-7.0); NEUT % 73.5 % (50.0-75.0); NRBC % 0.1 % (0.0-2.0); RBC 3.75 Mil/uL (3.80-5.20); RED CELL DISTRIBUTION WIDTH 13.9 % (11.5-14.5); WHITE BLOOD COUNT 3.7 K/uL (4.8-10.8)
[2018-06-06 08:56] LABS: ALB/GLOB RATIO 1.2 (1.0-2.1); ALBUMIN 3.4 g/dL (3.5-5.0); CALCIUM 9.1 mg/dl (8.6-10.4)
[2018-06-06] MEDS: (Novolin R) Insulin Human Regular 100 units/ml vial SC SCH ×3 (09:06→18:14)
[2018-06-06] MEDS: Metoprolol Succinate 50 mg XL Tab PO SCH (09:06)
[2018-06-06] MEDS: MYCOPHENOLIC ACID 180 MG PO SCH ×2 (09:06→18:14)
[2018-06-06 10:03] LABS: FOLATE 18.5 ng/mL
--- NOTE | 2018-06-06 12:14 | US ---
Renal ultrasound Indication: bilateral renal us Comparison: None available Findings: The [place] right kidney measures 6.2 x 3.0 x 3.0 cm and is without evidence of stones or hydronephrosis. Echogenic renal parenchyma. Cortical thinning. 1.2 x 1.5 x 1.7 cm mid to lower pole renal cyst. The [place] left kidney measures 6.9 x 3.9 x 3.8 cm and is without evidence of stones or hydronephrosis. Echogenic renal parenchyma. Cortical thinning. 0.7 x 0.6 x 0.7 cm midpole and 0.7 x 0.6 x 0.6 cm mid to upper pole renal cysts. Right lower quadrant transplant kidney measures approximately 10.8 x 5.6 x 5.5 cm. Mildly echogenic echotexture. No obstructing calculus or hydronephrosis identified. Impression: Atrophic/diminutive bilateral echogenic [place] kidneys. Bilateral renal cysts. Mildly echogenic echotexture of the transplant right lower quadrant kidney. No hydronephrosis or obstructing calculus identified. Preliminary impression was provided by [employer].
[2018-06-06] MEDS ORDERED: methylPREDNISolone 500 MG in Sodium Chloride 0.9% 100 ML IVPB ONE (12:30)
--- NOTE | 2018-06-06 13:14 | CP.PCM.DIS ---
<ToniJerod - Last Filed: 06/07/18 14:27> Provider - Provider Date of Admission: 06/04/18 20:38 Attending physician: Josse Barney MD Consults: 06/05/18 09:40 Nephrology Consult Routine Comment: Consulting Provider: Luis Felipe Heaton Consulting Physician: Luis Felipe Heaton Reason for Consult: syncope, acute on chronic RF, hx renal transplant. 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 Most Recent Lab Values WBC 3.7 K/uL (4.8-10.8) L 06/06/18 07:47 RBC 3.75 Mil/uL (3.80-5.20) L 06/06/18 07:47 Hgb 10.6 g/dL (11.0-16.0) L 06/06/18 07:47 Hct 31.7 % (34.0-47.0) L 06/06/18 07:47 MCV 84.7 fL (81.0-99.0) 06/06/18 07:47 MCH 28.3 pg (27.0-31.0) 06/06/18 07:47 MCHC 33.4 g/dL (33.0-37.0) 06/06/18 07:47 RDW 13.9 % (11.5-14.5) 06/06/18 07:47 Plt Count 33 K/uL (130-400) L 06/06/18 07:47 MPV 12.6 fL (7.2-11.7) H 06/06/18 07:47 Neut % (Auto) 73.5 % (50.0-75.0) 06/06/18 07:47 Lymph % (Auto) 23.6 % (20.0-40.0) 06/06/18 07:47 Hall % (Auto) 2.7 % (0.0-10.0) 06/06/18 07:47 Eos % (Auto) 0.0 % (0.0-4.0) 06/06/18 07:47 Baso % (Auto) 0.2 % (0.0-2.0) 06/06/18 07:47 Neut # (Auto) 2.7 K/uL (1.8-7.0) 06/06/18 07:47 Lymph # (Auto) 0.9 K/uL (1.0-4.3) L 06/06/18 07:47 Hall # (Auto) 0.1 K/uL (0.0-0.8) 06/06/18 07:47 Eos # (Auto) 0.0 K/uL (0.0-0.7) 06/06/18 07:47 Baso # (Auto) 0.0 K/uL (0.0-0.2) 06/06/18 07:47 Differential Comment 06/06/18 07:47 Retic Count 1.6 % (0.5-1.5) H 06/06/18 07:47 PT 10.2 SECONDS (9.7-12.2) 06/05/18 21:15 INR 0.9 06/05/18 21:15 APTT 23 SECONDS (21-34) 06/05/18 21:15 Sodium 131 mmol/L (132-148) L 06/06/18 07:47 Potassium 5.3 mmol/L (3.6-5.2) H 06/06/18 07:47 Chloride 101 mmol/L (98-107) 06/06/18 07:47 Carbon Dioxide 20 mmol/L (22-30) L 06/06/18 07:47 Anion Gap 15 (10-20) 06/06/18 07:47 BUN 84 mg/dL (7-17) H 06/06/18 07:47 Creatinine 4.9 mg/dL (0.7-1.2) H 06/06/18 07:47 Est GFR ( Amer) 11 06/06/18 07:47 Est GFR (Non-Af Amer) 9 06/06/18 07:47 POC Glucose (mg/dL) 462 mg/dL (65-110) H* 06/06/18 11:14 Random Glucose 277 mg/dL (65-105) H D 06/06/18 07:47 Hemoglobin A1c 6.4 % (4.2-6.5) 06/06/18 07:47 Calcium 9.1 mg/dl (8.6-10.4) 06/06/18 07:47 Phosphorus 5.0 mg/dL (2.5-4.5) H 06/06/18 07:47 Magnesium 2.0 mg/dL (1.6-2.3) 06/06/18 07:47 Ferritin 787.0 ng/mL 06/06/18 07:47 Total Bilirubin 1.0 mg/dL (0.2-1.3) 06/06/18 07:47 AST 44 U/L (14-36) H D 06/06/18 07:47 ALT 15 U/L (9-52) 06/06/18 07:47 Alkaline Phosphatase 62 U/L (38-126) 06/06/18 07:47 Total Creatine Kinase 90 U/L (30-135) 06/05/18 08:24 CK-MB (Mass) 0.46 ng/mL (0.0-3.38) 06/05/18 08:24 Troponin I 0.0290 ng/mL (0.00-0.120) 06/05/18 08:24 Total Protein 6.1 g/dL (6.3-8.3) L 06/06/18 07:47 Albumin 3.4 g/dL (3.5-5.0) L 06/06/18 07:47 Globulin 2.8 gm/dL (2.2-3.9) 06/06/18 07:47 Albumin/Globulin Ratio 1.2 (1.0-2.1) 06/06/18 07:47 Triglycerides 172 mg/dL (0-149) H D 06/06/18 07:47 Cholesterol 280 mg/dL (0-199) H 06/06/18 07:47 LDL Cholesterol Direct 171 mg/dL (0-129) H 06/06/18 07:47 HDL Cholesterol 46 mg/dL (30-70) 06/06/18 07:47 Lipase 430 U/L (23-300) H 06/04/18 19:05 Vitamin B12 468 pg/mL (239-931) 06/06/18 07:47 25-OH Vitamin D Total 20.9 NG/ML (30.0-100.0) L 06/06/18 07:47 Folate 18.5 ng/mL 06/06/18 07:47 Free T4 1.30 ng/dL (0.78-2.19) 06/06/18 07:47 TSH 3rd Generation 0.44 mIU/L (0.46-4.68) L 06/06/18 07:47 Urine Color Yellow (YELLOW) 06/04/18 20:31 Urine Clarity Hazy (Clear) 06/04/18 20:31 Urine pH 5.0 (5.0-8.0) 06/04/18 20:31 Ur Specific Java 1.013 (1.003-1.030) 06/04/18 20:31 Urine Protein 3+ mg/dL (NEGATIVE) H 06/04/18 20:31 Urine Glucose (UA) Normal mg/dL (Normal) 06/04/18 20:31 Urine Ketones Negative mg/dL (NEGATIVE) 06/04/18 20:31 Urine Blood 3+ (NEGATIVE) H 06/04/18 20:31 Urine Nitrate Negative (NEGATIVE) 06/04/18 20:31 Urine Bilirubin Negative (NEGATIVE) 06/04/18 20:31 Urine Urobilinogen Normal mg/dL (0.2-1.0) 06/04/18 20:31 Ur Leukocyte Esterase Neg Imer/uL (Negative) 06/04/18 20:31 Urine WBC (Auto) 3 /hpf (0-5) 06/04/18 20:31 Urine RBC (Auto) 1 /hpf (0-3) 06/04/18 20:31 Ur Squamous Epith Cells 4 /hpf (0-5) 06/04/18 20:31 Urine Bacteria Rare (<OCC) 06/04/18 20:31 Hyaline Casts 0-2 /lpf (0-2) 06/04/18 20:31 HIV 1&2 Antibody Screen Negative (NEGATIVE) 06/05/18 14:16 Influenza Typ A,B (EIA) Negative for flu a/b (NEGATIVE) 06/05/18 11:18 Grp A Beta Strep Ag Negative (NEGATIVE) 06/05/18 11:18 - Hospital Course Hospital Course: On admission: Patient is a 72 year old female with PMHx HTN, DM, renal transplant in 2009, Dementia, who presents after falling in a [employer] bathroom. Patient stated to me that she slipped on something in the bathroom causing her to fall. However patient's nurse and patient's daughter relayed to me that earlier the patient had stated that she had gone to the bathroom and [employer], felt dizzy, and syncopized. It is unclear if the patient lost consciousness or hit her head. Episode was unwitnessed. Per patient's daughter, the patient has been more forgetful lately- stating that she has new-onset dementia. Daughter states that patient has been noncompliant recently with her medications and following with doctor's appointments. Patient's daughter endorsed that the patient has been complaining of upset stomach for past several days. She denies nausea or vomiting. She has had some loose stools, but no bloody BMs or black, tarry stools. Hospital course: Pt with low grade temp on admission, (100.4), which resolved on it's own. Head CT did not show any acute intracranial pathology. EKG showed sinus bradycardia. Troponin x3 was negative. Echocardiogram ordered, results are pending. Abdominal CT was done due to abdominal discomfort, findings below. Lipase was elevated but no pancreatitis on CT, examination benign. Pt noted with thrombocytopenia, no signs of bleeding and no complaints of bleeding. Peripheral smear with schistocytes. Coag studies did not show signs of DIC. Labs showed worsening renal function compared to December 2017 labs. UA showed protein and hematuria. Pt's home meds were confirmed with pharmacy and it was revealed that pt last filled one month supply of medications in April 2018. Pt presents with full bottles of medications from March 2018. Dr. English, Nephrology, consulted. As per nephrology, pt with high possibility of transplant rejection. Pt started on 3 day course of Solumedrol [address] Cruz, hematology, consulted. As per Dr. 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 Tacrolimus was discontinued, [id number] ordered. No indication for plasma exchange at this time as per hematology. Thrombocytopenia has been stable during hospital stay, without episodes of bleeding or hemodynamic instability. Images: CT head without constrast 06/04: No significant interval change appreciated. Chronic nonspecific white matter changes. 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 Basal ganglia lacunar infarcts. If symptoms persist, consider correlation with MRI. CT abd/pelvis w/o PO/IV constrast 06/04: Diminutive bilateral shinnecock kidneys with probable right renal cyst and additional too small to characterize 4 mm exophytic left renal mass. Right lower quadrant transplant kidney. No hydronephrosis or obstructing calculus identified. Mildly thick-walled incompletely distended urinary bladder. Recommend correlation with urinalysis. MRI brain w/o contrast shows no acute intracranial abnormality. Right occipital porenecphalic cyst with surrounding gliosis, sequela of remote [employer] territory ischemic insult. Mild chronic microangiopathic changes and mild age-related global parenchymal volume loss. Bilateral Renal US shows atrophic/diminutive bilateral echogenic shinnecock kidneys. Bilateral renal cysts. Mildly echogenic echotexture of the transplant right lower quadrant kidney. Peripheral smear showed leukopenia. Thrombocytopenia with scattered schistocytes. Dr. Mack Jones spoke with Dr. English and as per Dr. English the patient needs to be transferred to [facility] sooner rather than later. Dr. Mack Jones expressed concern about possibility of needing HD with transplant physician Dr. Palacios. Dr. Fleming and accepting Hospitalist are aware. This is a summary of care at [facility]. Please see records for full details. Discharge Exam - Head Exam Head Exam: ATRAUMATIC Discharge Plan - Follow Up Plan Condition: STABLE Disposition: Trans to Other Acute Care Hosp <Renny Jones - Last Filed: 06/07/18 18:37> Provider - Provider Date of Admission: 06/04/18 20:38 Attending physician: Josse Barney MD Consults: 06/05/18 09:40 Nephrology Consult Routine Comment: Consulting Provider: Luis Felipe Heaton Consulting Physician: Luis Felipe Heaton Reason for Consult: syncope, acute on chronic RF, hx renal transplant. Known to you 06/05/18 10:19 Hematology Oncology Consult Routine Comment: Consulting Provider: Cullen Cruz Consulting Physician: Cullen Cruz Reason for Consult: thrombocytopenia, hx renal transplant Hospital Course - Lab Results Lab Results: Micro Results 06/05/18 11:18 Throat Group A Strep Throat Culture - Final NO BETA STREP GROUP A ISOLATED. Most Recent Lab Values WBC 3.7 K/uL (4.8-10.8) L 06/06/18 07:47 RBC 3.75 Mil/uL (3.80-5.20) L 06/06/18 07:47 Hgb 10.6 g/dL (11.0-16.0) L 06/06/18 07:47 Hct 31.7 % (34.0-47.0) L 06/06/18 07:47 MCV 84.7 fL (81.0-99.0) 06/06/18 07:47 MCH 28.3 pg (27.0-31.0) 06/06/18 07:47 MCHC 33.4 g/dL (33.0-37.0) 06/06/18 07:47 RDW 13.9 % (11.5-14.5) 06/06/18 07:47 Plt Count 33 K/uL (130-400) L 06/06/18 07:47 MPV 12.6 fL (7.2-11.7) H 06/06/18 07:47 Neut % (Auto) 73.5 % (50.0-75.0) 06/06/18 07:47 Lymph % (Auto) 23.6 % (20.0-40.0) 06/06/18 07:47 Hall % (Auto) 2.7 % (0.0-10.0) 06/06/18 07:47 Eos % (Auto) 0.0 % (0.0-4.0) 06/06/18 07:47 Baso % (Auto) 0.2 % (0.0-2.0) 06/06/18 07:47 Neut # (Auto) 2.7 K/uL (1.8-7.0) 06/06/18 07:47 Lymph # (Auto) 0.9 K/uL (1.0-4.3) L 06/06/18 07:47 Hall # (Auto) 0.1 K/uL (0.0-0.8) 06/06/18 07:47 Eos # (Auto) 0.0 K/uL (0.0-0.7) 06/06/18 07:47 Baso # (Auto) 0.0 K/uL (0.0-0.2) 06/06/18 07:47 Differential Comment 06/06/18 07:47 Retic Count 1.6 % (0.5-1.5) H 06/06/18 07:47 PT 10.2 SECONDS (9.7-12.2) 06/05/18 21:15 INR 0.9 06/05/18 21:15 APTT 23 SECONDS (21-34) 06/05/18 21:15 Sodium 131 mmol/L (132-148) L 06/06/18 07:47 Potassium 5.3 mmol/L (3.6-5.2) H 06/06/18 07:47 Chloride 101 mmol/L (98-107) 06/06/18 07:47 Carbon Dioxide 20 mmol/L (22-30) L 06/06/18 07:47 Anion Gap 15 (10-20) 06/06/18 07:47 BUN 84 mg/dL (7-17) H 06/06/18 07:47 Creatinine 4.9 mg/dL (0.7-1.2) H 06/06/18 07:47 Est GFR ( Amer) 11 06/06/18 07:47 Est GFR (Non-Af Amer) 9 06/06/18 07:47 POC Glucose (mg/dL) 365 mg/dL (65-110) H 06/06/18 16:26 Random Glucose 277 mg/dL (65-105) H D 06/06/18 07:47 Hemoglobin A1c 6.4 % (4.2-6.5) 06/06/18 07:47 Calcium 9.1 mg/dl (8.6-10.4) 06/06/18 07:47 Phosphorus 5.0 mg/dL (2.5-4.5) H 06/06/18 07:47 Magnesium 2.0 mg/dL (1.6-2.3) 06/06/18 07:47 Ferritin 787.0 ng/mL 06/06/18 07:47 Total Bilirubin 1.0 mg/dL (0.2-1.3) 06/06/18 07:47 AST 44 U/L (14-36) H D 06/06/18 07:47 ALT 15 U/L (9-52) 06/06/18 07:47 Alkaline Phosphatase 62 U/L (38-126) 06/06/18 07:47 Total Creatine Kinase 90 U/L (30-135) 06/05/18 08:24 CK-MB (Mass) 0.46 ng/mL (0.0-3.38) 06/05/18 08:24 Troponin I 0.0290 ng/mL (0.00-0.120) 06/05/18 08:24 Total Protein 6.1 g/dL (6.3-8.3) L 06/06/18 07:47 Albumin 3.4 g/dL (3.5-5.0) L 06/06/18 07:47 Globulin 2.8 gm/dL (2.2-3.9) 06/06/18 07:47 Albumin/Globulin Ratio 1.2 (1.0-2.1) 06/06/18 07:47 Triglycerides 172 mg/dL (0-149) H D 06/06/18 07:47 Cholesterol 280 mg/dL (0-199) H 06/06/18 07:47 LDL Cholesterol Direct 171 mg/dL (0-129) H 06/06/18 07:47 HDL Cholesterol 46 mg/dL (30-70) 06/06/18 07:47 Lipase 430 U/L (23-300) H 06/04/18 19:05 Vitamin B12 468 pg/mL (239-931) 06/06/18 07:47 25-OH Vitamin D Total 20.9 NG/ML (30.0-100.0) L 06/06/18 07:47 Folate 18.5 ng/mL 06/06/18 07:47 Free T4 1.30 ng/dL (0.78-2.19) 06/06/18 07:47 TSH 3rd Generation 0.44 mIU/L (0.46-4.68) L 06/06/18 07:47 Urine Color Yellow (YELLOW) 06/04/18 20:31 Urine Clarity Hazy (Clear) 06/04/18 20:31 Urine pH 5.0 (5.0-8.0) 06/04/18 20:31 Ur Specific Java 1.013 (1.003-1.030) 06/04/18 20:31 Urine Protein 3+ mg/dL (NEGATIVE) H 06/04/18 20:31 Urine Glucose (UA) Normal mg/dL (Normal) 06/04/18 20:31 Urine Ketones Negative mg/dL (NEGATIVE) 06/04/18 20:31 Urine Blood 3+ (NEGATIVE) H 06/04/18 20:31 Urine Nitrate Negative (NEGATIVE) 06/04/18 20:31 Urine Bilirubin Negative (NEGATIVE) 06/04/18 20:31 Urine Urobilinogen Normal mg/dL (0.2-1.0) 06/04/18 20:31 Ur Leukocyte Esterase Neg Imer/uL (Negative) 06/04/18 20:31 Urine WBC (Auto) 3 /hpf (0-5) 06/04/18 20:31 Urine RBC (Auto) 1 /hpf (0-3) 06/04/18 20:31 Ur Squamous Epith Cells 4 /hpf (0-5) 06/04/18 20:31 Urine Bacteria Rare (<OCC) 06/04/18 20:31 Hyaline Casts 0-2 /lpf (0-2) 06/04/18 20:31 RPR Nonreactive (NONREACTIVE) 06/06/18 07:47 HIV 1&2 Antibody Screen Negative (NEGATIVE) 06/05/18 14:16 Influenza Typ A,B (EIA) Negative for flu a/b (NEGATIVE) 06/05/18 11:18 Grp A Beta Strep Ag Negative (NEGATIVE) 06/05/18 11:18 Attending/Attestation - Attestation I have personally seen and examined this patient.: Yes I have fully participated in the care of the patient.: Yes I have reviewed all pertinent clinical information, including history, physical exam and plan: Yes Notes (Text): 06/07/18 18:37 This is a late entry. Care of this patient was gone over in detail with resident Dr. Muñoz. Renny Jones D.O.
--- NOTE | 2018-06-06 14:59 | CP.PCM.PN ---
Subjective - Date & Time of Evaluation Date of Evaluation: 06/06/18 Time of Evaluation: 14:57 - Subjective Subjective: Nephrology Consultation Note: Assessment: critical BETH in setting of memory impairment with non-compliance to meds and UA 3+ protein 3+ blood: concerns for acute rejection HTN, DM, ESRD s/p LURT @ [facility] in 2009 thrombocytopenia due to possibility of drug induced TTP per heme syncope Plan no acute need for renal replacement therapy at present but may need soon and will need close follow up Hypertension control with meds as ordered. pt not on RAAS kyung, will defer it due to BETH Monitor I/O, daily weights and renal function while in hospital d/c IVF. monitor respi status closely low K diet. dose of kayexylate today Kidney Transplant: continue with myfortic as ordered. check tacrolimus trough level. pt on prednisone 5 mg/d called transplant center as concerns for acute rejection and pt will benefit from transfer to a transplant center empiric IV solumedrol 500 mg/d x 3 days in meantime d/w transplant flux mixer and pt accepted clinically for transfer hematology eval for thrombocytopenia appreciated. tacrolimus on hold as possibility of drug induced TTP per heme will need neuro and or psych eval for memory impairment. SW eval for home situation. Dose meds/antibiotics for reduced GFR. Avoid fleets enema/magnesium based laxatives. Avoid nephrotoxins/NSAIDs/ iodinated contrast (unless needed emergently) Glycemic control, renal diet. Further work up for as per primary team. Thanks for allowing me to participate in care of your patient. Will follow with you. Please call if any Qs. had d/w team. Dr Artie English Office: [phone] CC; syncope reason for consult: BETH kidney tx status HPI: Pt is a 72 FM with hx of HTN (years), DM, ESRD s/p LURT @ [facility] in 2009 on chcf prednisone 5 mg, tacrolimus and myfortic, memory impairment with non-compliance to meds lately presented to hospital with complaints of dizziness and syncope and renal consult for BETH and kidney transplant management. Denies chest pain, palpitation, improved shortness of breath Denies OTC/herbal meds/NSAIDs No recent iodinated contrast exposure. no GI symptoms at present. report diarrhoea episode which had resolved ROS: denies CP/nausea/vomiting now. no SOB at present. no nausea denies pain abdomen. denies urine complaints rest other negative except as mentioned in HPI. overall hx limited from pt Physical Examination: General Appearance: Comfortable, in no acute respiratory distress, co-operative. Vitals reviewed and noted as below Head; Atraumatic, normocephalic ENT: no ulcers no thrush. Tongue is midline. Oropharynx: no rash or ulcers. EYES: b/l PERRLA Neck; supple no lymphadenopathy, no thyromegaly or bruit Lungs: Normal respiratory rate/effort. Breath sounds b/l with equal clear Heart: Normal rate. s1s2 normal. No rub or gallop. Extremities: no pitting edema. No varicose veins. Neurological: Patient is awake alert and follow commands no focal deficit. oriented to place and person. has memory impairment Skin: dry and warm. Normal turgor. No rash. Palpitation: Normal elasticity for age Abdomen: Abdomen is distended . Bowel sounds +. There is no abdominal tenderness , no guarding/rigidity or organomegaly Psych: lack insight. has normal affect/mood MSK: no specific joint tenderness or swelling. Digits and nails normal, no deformity : Rt transplant kidney non tender Labs/imaging/EKG reviewed. Past medical history, past surgical history, social history, allergy reviewed and noted as below Family hx; no hx of CKD. non contributory UA 3+ protein 3+ blood CPK wnl lipase 430 Objective - Vital Signs/Intake and Output Vital Signs (last 24 hours): Temp Pulse Resp BP Pulse Ox 97.4 F L 55 L 20 154/70 H 95 06/06/18 07:00 06/06/18 07:00 06/06/18 07:00 06/06/18 07:00 06/06/18 07:00 - Medications Medications: Current Medications Acetaminophen (Tylenol 325mg Tab) 650 mg PO Q6 PRN PRN Reason: Fever >100.4 F Amlodipine Besylate (Norvasc) 5 mg PO DAILY [facility] Last Admin: 06/06/18 09:07 Dose: 5 mg Cinacalcet (Sensipar) 30 mg PO DAILY [facility] Last Admin: 06/06/18 09:06 Dose: 30 mg Dextrose (Dextrose 50% Inj) 0 ml IV STAT PRN; Protocol PRN Reason: Hypoglycemia Protocol Dextrose (Glutose 15) 0 gm PO ONCE PRN; Protocol PRN Reason: Hypoglycemia Protocol Fluoxetine HCl (Prozac) 20 mg PO DAILY [facility] Last Admin: 06/06/18 09:06 Dose: 20 mg Glucagon (Glucagen Diagnostic Kit) 0 mg IM STAT PRN; Protocol PRN Reason: Hypoglycemia Protocol Home Med (Patient's Own Medication) 3 tab PO BID [facility] Last Admin: 06/06/18 09:06 Dose: 3 tab Dextrose (Dextrose 5% In Water 1000 Ml) 1,000 mls @ 0 mls/hr IV .Q0M PRN; Protocol PRN Reason: Hypoglycemia Protocol Influenza Virus Vaccine (Flucelvax Quad [id number] Syr) 60 mcg IM .ONCE ONE Stop: 06/07/18 10:01 Insulin Human Regular (Novolin R) 0 unit SC [facility]; Protocol Last Admin: 06/06/18 12:30 Dose: 6 units Memantine (Namenda) 5 mg PO BID [facility] Metoprolol Succinate (Toprol Xl) 50 mg PO DAILY [facility] Last Admin: 06/06/18 09:06 Dose: 50 mg Pneumococcal Polyvalent Vaccine (Pneumovax 23 Vaccine) 0.5 ml IM .ONCE ONE Stop: 06/07/18 10:01 Prednisone (Prednisone Tab) 5 mg PO DAILY [facility] Last Admin: 06/06/18 09:06 Dose: 5 mg Rosuvastatin Calcium (Crestor) 5 mg PO HS [facility] Last Admin: 06/05/18 22:51 Dose: 5 mg - Labs Labs: 06/06/18 07:47 06/06/18 07:47 PT 10.2 SECONDS (9.7-12.2) 06/05/18 21:15 INR 0.9 06/05/18 21:15 APTT 23 SECONDS (21-34) 06/05/18 21:15
[2018-06-06 16:55] VITALS: PULSE 71; O2SAT 98
[2018-06-06 17:12] VITALS: BP 176/65
--- NOTE | 2018-06-06 18:07 | CARD ---
APPROVED REPORT Date of service: 06/05/2018 EXAM: Two-dimensional and M-mode echocardiogram with Doppler and color Doppler. INDICATION Syncope RISK FACTORS Hypertension Diabetes 2D DIMENSIONS IVSd1.0 (0.7-1.1cm)LVDd3.6 (3.9-5.9cm) PWd1.1 (0.7-1.1cm)LA Sktpwu47 (18-58mL) LVDs1.7 (2.5-4.0cm)FS (%) 51.6 % LVEF (%)75.0 (>50%)LVEF (Cramer's)73 % IVC0.00 cm M-Mode DIMENSIONS RVDd1.35 (2.1-3.2cm)Left Atrium (MM)4.24 (2.5-4.0cm) IVSd1.11 (0.7-1.1cm)Aortic Root2.82 (2.2-3.7cm) LVDd5.03 (4.0-5.6cm)Aortic Cusp Exc.1.64 (1.5-2.0cm) PWd1.21 (0.7-1.1cm)FS (%) 54 % LVDs2.29 (2.0-3.8cm)LVEF (%)74 (>50%) Aortic Valve AoV Peak Yevifcid665.9cm/sAoV VTI44.6cmAO Peak GR.18mmHg AO Mean GR.9mmHgAI P 1/2 Fpnj045dg Mitral Valve MV E Gjhetzpp25.1cm/sMV A Maapvcuq50.6cm/sE/A ratio0.7 PFML892.25 cm/s TDI Lateral E' Peak V8.61cm/sMedial E' Peak V5.64cm/sE/Lateral E'7.9 E/Medial E'12.1 Tricuspid Valve TR Peak Egemeesm644yq/sTR Peak Gr.99yfQwOWSW73zmFb LEFT VENTRICLE The left ventricle is normal size. There is borderline concentric left ventricular hypertrophy. Left ventricle systolic function is normal. The Ejection Fraction is >70%. There is normal LV segmental wall motion. Tissue Doppler imaging reveals abnormal left ventricular diastolic dysfunction. RIGHT VENTRICLE The right ventricle is normal size. There is normal right ventricular wall thickness. The right ventricular systolic function is normal. ATRIA The left atrium is mildly dilated. The right atrium size is normal. The interatrial septum is intact with no evidence for an atrial septal defect. AORTIC VALVE The aortic valve is normal in structure. There is mild aortic regurgitation. There is no aortic valvular stenosis. There is no aortic valvular vegetation. MITRAL VALVE The mitral valve is normal in structure. There is no evidence of mitral valve prolapse. There is no mitral valve stenosis. Mitral regurgitation is mild. TRICUSPID VALVE The tricuspid valve is normal in structure. There is mild tricuspid regurgitation. Right ventricular systolic pressure is estimated at 30-40 mmHg. There is mild pulmonary hypertension. PULMONIC VALVE The pulmonic valve is not well visualized. There is trace pulmonic valvular regurgitation. GREAT VESSELS The aortic root is normal in size. PERICARDIAL EFFUSION There is no significant pericardial effusion. <Conclusion> Left ventricle systolic function is normal. The Ejection Fraction is >70%. Diastolic dysfunction. Hypertensive heart disease. There is mild aortic regurgitation. Mitral regurgitation is mild. There is mild tricuspid regurgitation. There is mild pulmonary hypertension. There is trace pulmonic valvular regurgitation.
--- NOTE | 2018-06-06 21:28 | CARD ---
APPROVED REPORT Date of service: 06/04/2018 EKG Measurement Heart [id number] <Conclusion> Sinus bradycardia Minimal voltage criteria for LVH, may be normal variant Septal infarct, age undetermined Abnormal ECG
[2018-06-07] MEDS ORDERED: Influenza Vaccine 60 mcg/0.5 mL SYR (4YR UP) IM ONE (10:00)
[2018-06-07] MEDS ORDERED: Pneumococcal 23-Valent Vaccine IM ONE (10:00)
== END 2018-06-06 19:40 | disposition short-term general hospital (02) | DRG 698 ==
LOC: C.ER 15:58 → C.9E 20:38 → C.5S 06-05 00:48
PROVIDERS: ADMIT Family Medicine; ATTEND Family Medicine
DX: T86.11 Kidney transplant rejection (principal); M31.1 Thrombotic microangiopathy; N18.6 End stage renal disease; N17.9 Acute kidney failure, unspecified; I12.0 Hypertensive chronic kidney disease with stage 5 chronic kidney disease or end stage renal disease; E11.22 Type 2 diabetes mellitus with diabetic chronic kidney disease; E11.649 Type 2 diabetes mellitus with hypoglycemia without coma; E78.00 Pure hypercholesterolemia, unspecified; E83.42 Hypomagnesemia; F03.90 Unspecified dementia, unspecified severity, without behavioral disturbance, psychotic disturbance, mood disturbance, and anxiety; G93.89 Other specified disorders of brain; Z91.14 Patient's other noncompliance with medication regimen; R55 Syncope and collapse; F41.9 Anxiety disorder, unspecified; F32.9 Major depressive disorder, single episode, unspecified; R31.9 Hematuria, unspecified; D63.1 Anemia in chronic kidney disease; Z87.891 Personal history of nicotine dependence; Y83.0 Surgical operation with transplant of whole organ as the cause of abnormal reaction of the patient, or of later complication, without mention of misadventure at the time of the procedure; N28.89 Other specified disorders of kidney and ureter; R09.81 Nasal congestion; T50.905A Adverse effect of unspecified drugs, medicaments and biological substances, initial encounter; Z79.4 Long term (current) use of insulin

== ENCOUNTER 2018-07-08 15:56 | Inpatient (IN) | payer MEDICARE, MEDICAID ==
[2018-07-08 17:15] LABS: HEMOGLOBIN 7.4 g/dL (11.0-16.0)
[2018-07-08 17:23] LABS: MEAN CELL VOLUME 84.1 fL (81.0-99.0); MEAN CORPUSCULAR HEMOGLOBIN 28.3 pg (27.0-31.0); MEAN CORPUSCULAR HGB CONC 33.6 g/dL (33.0-37.0); MEAN PLATELET VOLUME 10.9 fL (7.2-11.7); PLATELET COUNT 40 K/uL (130-400); RBC 2.61 Mil/uL (3.80-5.20); RED CELL DISTRIBUTION WIDTH 14.8 % (11.5-14.5); WHITE BLOOD COUNT 13.5 K/uL (4.8-10.8)
[2018-07-08 17:35] LABS: BASO % 0.3 % (0.0-2.0); EOS % 2.5 % (0.0-4.0); LYMPH % 1.3 % (20.0-40.0); MONO % 0.8 % (0.0-10.0); NEUT % 95.1 % (50.0-75.0)
[2018-07-08 17:36] LABS: ALB/GLOB RATIO 1.6 (1.0-2.1); ALBUMIN 3.1 g/dL (3.5-5.0); CALCIUM 9.3 mg/dl (8.6-10.4); EOS # 0.3 K/uL (0.0-0.7); LYMPH # 0.2 K/uL (1.0-4.3); MONO # 0.1 K/uL (0.0-0.8); NEUT # 12.8 K/uL (1.8-7.0)
[2018-07-08 17:37] LABS: ANISOCYTOSIS SLIGHT; BURR CELLS SLIGHT; HYPOCHROMIC SLIGHT; LYMPHOCYTE 2 % (20-40); MICROCYTOSIS SLIGHT; MONOCYTE 1 % (0-10); NEUTROPHIL 97 % (50-75); PLATELET ESTIMATE DECREASED (NORMAL); POIKILOCYTOSIS SLIGHT; TOTAL CELLS COUNTED 100
[2018-07-08 17:49] LABS: TROPONIN I 0.334 ng/mL (0.00-0.120)
--- NOTE | 2018-07-08 17:55 | CT ---
Date of service: 07/08/2018 PROCEDURE: CT HEAD WITHOUT CONTRAST. HISTORY: altered mental status COMPARISON: Noncontrast head CT performed 06/04/18, MRI brain without contrast performed 06/05/18 TECHNIQUE: Axial computed tomography images were obtained through the head/brain without intravenous contrast. Radiation dose: Total exam DLP = 873.72 mGy-cm. This CT exam was performed using one or more of the following dose reduction techniques: Automated exposure control, adjustment of the mA and/or kV according to patient size, and/or use of iterative reconstruction technique. FINDINGS: HEMORRHAGE: 6 mm hyperdensity in the right frontal lobe (series 4, image 20) worrisome for small intraparenchymal hemorrhage. BRAIN: Diffuse atrophy with prominence of the ventricles and sulci noted. No mass effect or edema. Intracranial atherosclerosis. Scattered periventricular and subcortical white matter hypodensities, which are nonspecific, but often seen with chronic microvascular ischemic disease. Right occipital lobe encephalomalacia consistent with remote infarction. Bilateral basal ganglia lacunar infarcts. Previously demonstrated persistent prominence of the left extra-axial CSF space adjacent to the left cerebellum left appreciated on this study possibly due to positioning. Please note that MRI with diffusion imaging is more sensitive in the detection of acute ischemic event. VENTRICLES: No hydrocephalus. CALVARIUM: Unremarkable. PARANASAL SINUSES: Unremarkable as visualized. No significant inflammatory changes. MASTOID AIR CELLS: Unremarkable as visualized. No inflammatory changes. OTHER FINDINGS: None. IMPRESSION: 6 mm hyperdensity in the right frontal lobe worrisome for small intraparenchymal hemorrhage. Chronic nonspecific white matter changes. 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 Basal ganglia lacunar infarcts. Findings discussed with Dr. Caraballo on 07/08/18 at 5:47 p.m.
--- NOTE | 2018-07-08 17:56 | RAD ---
Date of service: 07/08/2018 HISTORY: altered mental status- r/o pna COMPARISON: 01/10/2018 FINDINGS: LUNGS: No active pulmonary disease. PLEURA: No significant pleural effusion identified, no pneumothorax apparent. CARDIOVASCULAR: No atherosclerotic calcification present No radiographic findings to suggest acute or significant cardiovascular disease. Venous access catheter in satisfactory position. OSSEOUS STRUCTURES: No significant abnormalities. VISUALIZED UPPER ABDOMEN: Normal. OTHER FINDINGS: None. IMPRESSION: No active disease. Satisfactory position of dialysis catheter new finding compared to the prior study.
--- NOTE | 2018-07-08 18:13 | C.PDOC ---
History Of Present Illness 72 y/o female,w/PMhx of dementia, brought to ER from [facility] for evaluation of weakness. Patient has dialysis on Mondays,Wednesdays, and Fridays for failed kidney transplant. Staff noted that patient appeared to be less responsive after her dialysis today. Staff found that she would not turn her head to the right. Daughter reports that patient seems more tired. She notes that she is less responsive than usual with her history of dementia. Daughter denies that patient has fever,chills, CP, SOB, nausea, vomiting, and abdominal pain. Time Seen by Provider: 07/08/18 16:24 Chief Complaint (Nursing): Medical Clearance History Per: Family (daughter) History/Exam Limitations: clinical condition Onset/Duration Of Symptoms: Hrs Current Symptoms Are (Timing): Still Present Severity: Moderate Past Medical History Reviewed: Historical Data, Nursing Documentation, Vital Signs Vital Signs: Last Vital Signs Temp 99.5 F 07/08/18 16:24 Pulse 98 H 07/08/18 16:24 Resp BP 172/87 H 07/08/18 16:24 Pulse Ox 93 L 07/08/18 16:24 - Medical History PMH: Anxiety, Dementia, Depression, Diabetes, HTN, Hypercholesterolemia, Chronic Kidney Disease Denies: Hepatitis, HIV, Seizures, Sexually Transmitted Disease Other Surgeries: Hx of surgeries - [facility] Procedures INSPECTION OF LARYNX, ENDO (11/23/15) Family History: States: Diabetes - Social History Hx Tobacco Use: No Hx Alcohol Use: No Hx Substance Use: No - Immunization History Hx Tetanus Toxoid Vaccination: (unk) Hx Influenza Vaccination: (unk) Hx Pneumococcal Vaccination: (unk) Review Of Systems Review Of Systems: ROS cannot be obtained secondary to pt's inabilty to answer questions. Physical Exam - Physical Exam Appears: No Acute Distress Skin: Normal Color, Warm, Dry Head: Normacephalic, Other (head turned to left side, pt is not able to turn head to right side, no facial droop) Eye(s): bilateral: Normal Inspection, PERRL, EOMI, Other (no gaze paralysis) Nose: Normal Oral Mucosa: Moist Neck: Supple Chest: Symmetrical, Other (dialysis port in right chest) Cardiovascular: Rhythm Regular Respiratory: Normal Breath Sounds, No Rales, No Rhonchi, No Wheezing Gastrointestinal/Abdominal: Normal Exam, Soft, No Tenderness, No Guarding, No Rebound Extremity: Normal ROM Neurological/Psych: No Normal Motor (4/5 strength in bilateral arms and 3/5 strength in bilateral legs), Other (non-verbal, follows commands,) ED Course And Treatment - Laboratory Results Result Diagrams: 07/08/18 17:08 07/08/18 17:08 Lab Results: Troponin I 0.3340 ng/mL (0.00-0.120) H* 07/08/18 17:08 Total Bilirubin 1.1 mg/dL (0.2-1.3) 07/08/18 17:08 AST 42 U/L (14-36) H 07/08/18 17:08 ALT 12 U/L (9-52) 07/08/18 17:08 Alkaline Phosphatase 122 U/L (38-126) 07/08/18 17:08 Total Protein 5.1 g/dL (6.3-8.3) L 07/08/18 17:08 Albumin 3.1 g/dL (3.5-5.0) L 07/08/18 17:08 Globulin 2.0 gm/dL (2.2-3.9) L 07/08/18 17:08 Albumin/Globulin Ratio 1.6 (1.0-2.1) 07/08/18 17:08 ECG: Interpreted By Mt ECG Rhythm: Sinus Rhythm Interpretation Of ECG: normal axis, prolonged QTc 482, no ST elevation Rate From EC O2 Sat by Pulse Oximetry: 93 Pulse Ox Interpretation: Normal - Other Rad CT Head X-Ray: Read By Radiologist Interpretation: PROCEDURE: CT HEAD WITHOUT CONTRAST. HISTORY: altered mental status. COMPARISON: Noncontrast head CT performed 06/04/18, MRI brain without contrast performed 06/05/18. TECHNIQUE: Axial computed tomography images were obtained through the head/brain without intravenous contrast. Radiation dose: Total exam DLP = 873.72 mGy-cm. This CT exam was performed using one or more of the following dose reduction techniques: Automated exposure control, adjustment of the mA and/or kV according to patient size, and/or use of iterative reconstruction technique. FINDINGS: HEMORRHAGE: 6 mm hyperdensity in the right frontal lobe (series 4, image 20) worrisome for small intraparenchymal hemorrhage. BRAIN: Diffuse atrophy with prominence of the ventricles and sulci noted. No mass effect or edema. Intracranial atherosclerosis. Scattered p eriventricular and subcortical white matter hypodensities, which are nonspecific, but often seen with chronic microvascular ischemic disease. Right occipital lobe encephalomalacia consistent with remote infarction. Bilateral basal ganglia lacunar infarcts. Previously demonstrated persistent prominence of the left extra-axial CSF space adjacent to the left cerebellum left appreciated on this study possibly due to positioning. Please note that MRI with diffusion imaging is more sensitive in the detection of acute ischemic event. VENTRICLES: No hydrocephalus. CALVARIUM: Unremarkable. PARANASAL SINUSES: Unremarkable as visualized. No significant inflammatory changes. MASTOID AIR CELLS: Unremarkable as visualized. No inflammatory changes. OTHER FINDINGS: None. IMPRESSION: 6 mm hyperdensity in the right frontal lobe worrisome for small intraparenchymal hemorrhage. Chronic nonspecific white matter changes. 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 Basal ganglia lacunar infarcts. Findings discussed with Dr. Caraballo on 07/08/18 at 5:47 p.m. Medical Decision Making Medical Decision Making: Plan: --Labs --CXR --CT-Head --EKG CT head showing possible small intraparenchymal hemorrhage. Findings discussed with Dr. Ash, neurologist environmental marketing representative. No acuteLabs done showing leukocytosis, anemia, and elevated troponin. CXR done with no evidence of PNA. UA unable to be done as patient undergoes dialysis. Patient with 3 point drop in hgb in the past month. Hemoccult done and was negative. No other evidence of bleeding on exam. EKG done, no ST elevation. Troponin from NSTEMI vs secondary to renal disease. However, anticoagulation contraindicated as patient has possible intracranial bleed. Case discussed with Dr. Barney, hospitalist environmental marketing representative. Accepts admission, would like ICU evaluation. Case discussed with Dr. Rogers who saw patient and accepted her to the ICU. Disposition - Disposition Disposition: HOSPITALIZED Disposition Time: 21:54 Condition: FAIR - Clinical Impression Clinical Impression: Intraparenchymal hemorrhage of brain, Anemia, NSTEMI (non-ST elevated myocardial infarction), Altered mental status - Scribe Statement The provider has reviewed the documentation as recorded by the Scribe María Cohen Provider Attestation: All medical record entries made by the Scribe were at my direction and personally dictated by me. I have reviewed the chart and agree that the record accurately reflects my personal performance of the history, physical exam, [facility] decision making, and the department course for this patient. I have also personally directed, reviewed, and agree with the discharge instructions and disposition.
[2018-07-08 20:35] LABS: INR 1.1; PROTHROMBIN TIME 12.3 SECONDS (9.7-12.2)
--- NOTE | 2018-07-08 22:22 | CP.PCM.CON ---
History of Present Illness - History of Present Illness History of Present Illness: 72 y/o female,w/PMhx of dementia, DM, HTN, ESRD on HD, hyperlipidemia brought to ER from [facility] for evaluation of weakness. Patient has dialysis on Mondays,Wednesdays, and Fridays for failed kidney transplant. Staff noted that patient appeared to be less responsive after her dialysis today. Staff found that she would not turn her head to the right. patients oral intake has been poor for the past few days Friend at bedside states that patient was able to speak a few days ago and is becoming weaker In ER responds to commands,attempts to answer some questions but speech not clear history from friend Review of Systems - Review of Systems Review of Systems: unable due to mental status Past Patient History - Past Medical History & Family History Past Medical History?: Yes - Past Social History Smoking Status: Never Smoked - CARDIAC Hx Hypercholesterolemia: Yes Hx Hypertension: Yes - PULMONARY Hx Tuberculosis: No - NEUROLOGICAL Hx Dementia: Yes Hx Seizures: No - HEENT Hx HEENT Problems: No - RENAL Hx Chronic Kidney Disease: Yes - ENDOCRINE/METABOLIC Hx Endocrine Disorders: Yes 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) - HEMATOLOGICAL/ONCOLOGICAL Hx Human Immunodeficiency Virus (HIV): No - INTEGUMENTARY Hx Dermatological Problems: No - MUSCULOSKELETAL/RHEUMATOLOGICAL Hx Falls: No - GASTROINTESTINAL Hx Gastrointestinal Disorders: No - GENITOURINARY/GYNECOLOGICAL Hx Sexually Transmitted Disorders: No - PSYCHIATRIC Hx Anxiety: Yes Hx Depression: Yes Hx Substance Use: No - SURGICAL HISTORY Hx Surgeries: Yes Hx Section: Yes Hx Kidney Transplant: Yes (right kidney 2009) - ANESTHESIA Hx Anesthesia: Yes Hx Anesthesia Reactions: No Meds Allergies/Adverse Reactions: Allergies Allergy/AdvReac Type Severity Reaction Status Date / Time enalapril Allergy Severe ANGIOEDEMA Verified 07/08/18 16:41 Physical Exam - Constitutional Appears: No Acute Distress, Cachectic, Chronically Ill - Head Exam Head Exam: ATRAUMATIC, NORMOCEPHALIC Additional comments: head turned to left,no facial droop - Eye Exam Eye Exam: absent: Scleral icterus Pupil Exam: PERRL - ENT Exam ENT Exam: Mucous Membranes Dry - Neck Exam Additional comments: head turned to left - Respiratory Exam Respiratory Exam: Clear to Auscultation Bilateral Additional comments: HD catheter right chest - Cardiovascular Exam Cardiovascular Exam: REGULAR RHYTHM. absent: JVD - GI/Abdominal Exam GI & Abdominal Exam: Normal Bowel Sounds, Soft, Tenderness - Extremities Exam Extremities exam: Negative for: pedal edema - Neurological Exam Neurological exam: Altered - Skin Skin Exam: Dry, Intact Results - Vital Signs Recent Vital Signs: Last Vital Signs Temp 98.9 F 07/08/18 21:46 Pulse 98 H 07/08/18 21:46 Resp 22 07/08/18 21:46 BP 157/67 H 07/08/18 21:46 Pulse Ox 94 L 07/08/18 21:46 - Labs Result Diagrams: 07/08/18 17:08 07/08/18 17:08 Labs: Laboratory Results - last 24 hr 07/08/18 07/08/18 07/08/18 17:08 17:08 17:10 WBC 13.5 H D RBC 2.61 L Hgb 7.4 L D Hct 21.9 L MCV 84.1 MCH 28.3 MCHC 33.6 RDW 14.8 H Plt Count 40 L MPV 10.9 Neut % (Auto) 95.1 H Lymph % (Auto) 1.3 L [place]ball % (Auto) 0.8 Eos % (Auto) 2.5 Baso % (Auto) 0.3 Neut # (Auto) 12.8 H Lymph # (Auto) 0.2 L [place] # (Auto) 0.1 Eos # (Auto) 0.3 Baso # (Auto) 0.0 Neutrophils % (Manual) 97 H Lymphocytes % (Manual) 2 L Monocytes % (Manual) 1 Platelet Estimate Decreased L Hypochromasia (manual) Slight Poikilocytosis (manual Slight Anisocytosis (manual) Slight Microcytosis (manual) Slight [place] Cells Slight PT INR APTT Sodium 132 Potassium 3.4 L Chloride 89 L Carbon Dioxide 26 Anion Gap 21 H BUN 30 H Creatinine 2.3 H Est GFR ( Amer) 25 Est GFR (Non-Af Amer) 21 POC Glucose (mg/dL) 249 H Random Glucose 204 H D Calcium 9.3 Phosphorus 3.0 Magnesium 1.9 Total Bilirubin 1.1 AST 42 H ALT 12 Alkaline Phosphatase 122 Troponin I 0.3340 H* Total Protein 5.1 L Albumin 3.1 L Globulin 2.0 L Albumin/Globulin Ratio 1.6 07/08/18 20:14 WBC RBC Hgb Hct MCV MCH MCHC RDW Plt Count MPV Neut % (Auto) Lymph % (Auto) [place] % (Auto) Eos % (Auto) Baso % (Auto) Neut # (Auto) Lymph # (Auto) Kimball # (Auto) Eos # (Auto) Baso # (Auto) Neutrophils % (Manual) Lymphocytes % (Manual) Monocytes % (Manual) Platelet Estimate Hypochromasia (manual) Poikilocytosis (manual Anisocytosis (manual) Microcytosis (manual) [place] Cells PT 12.3 H INR 1.1 APTT 26 Sodium Potassium Chloride Carbon Dioxide Anion Gap BUN Creatinine Est GFR ( Amer) Est GFR (Non-Af Amer) POC Glucose (mg/dL) Random Glucose Calcium Phosphorus Magnesium Total Bilirubin AST ALT Alkaline Phosphatase Troponin I Total Protein Albumin Globulin Albumin/Globulin Ratio - EKG Data EKG Interpreted by: Myself - Imaging and Cardiology CT scan - head Status: Image reviewed by me, Report reviewed by me Assessment & Plan - Assessment and Plan (Free Text) Assessment: 72 y/o male with DM,HTN,ESRD on HD,dementia presenting with Altered Mental status 1.AMS ,leucocytosis ,dehydration,Right frontal lobe intra paranchymal hemorrhage r/o sepsis blood cultures,antibiotics slow hydration 2.Elevated Troponin in HD patient/HTN serial labs no aspirin ,plavix due to intraparanchymal bleed on Ct head 3.Anemia-last Hb at [place] was 7.4 no acute drop receives PRBC transfusions PRN with HD f/u Hb 4.ESRD on HD 5.DM- monitor BS
[2018-07-08] MEDS ORDERED: Glucagon Recombinant 1 mg Inj IM PRN (22:26)
[2018-07-08] MEDS ORDERED: Dextrose 50% SYRINGE Inj (50 ml) IV PRN (22:26)
[2018-07-08] MEDS ORDERED: Piperacillin/Tazobact 2.25 gm Inj IVPB SCH (22:45)
[2018-07-08] MEDS ORDERED: Sodium Chloride 0.45% 1,000 ML IV SCH (22:45)
[2018-07-08] MEDS: (Novolin R) Insulin Human Regular 100 units/ml vial SC SCH (23:14)
[2018-07-08] MEDS: Piperacill/Tazo 2.25gm in Dex 2.25 GM/50 ML BAG IVPB SCH (23:15)
--- NOTE | 2018-07-08 23:51 | CP.PCM.HP ---
<Robyn Khoury - Last Filed: 07/09/18 02:13> History of Present Illness - History of Present Illness History of Present Illness: cc: "she's not herself" Ms. Palma is a 72 year old [place] female with a PMH of hypertension, diabetes, chronic kidney disease on hemodialysis MWF s/p kidney transplant 10 years ago, and dementia here today for acute change in speech and energy. She attended her regular hemodialysis session today. En route back to [facility], her escort noticed her speech start slurring and her overall demeanor depress. He noted R sided weakness that progressed to generalized weakness by the arrival back to [facility]. She was sent in by the physician at the care home for evaluation. Per daughter, she has had a decreased appetite for the last two weeks. Due to lack of motivation in swallowing, she has been eating a lot less and become non compliant with her medications. Speech is unintelligible, but patient is able to respond to yes/no questioning appropriately. Complains of generalized weakness and pain. Denies chest pain, shortness of breath, headache, n/v/c/d. Complains of neck pain from chronic L sided rotation. Patient was recently discharged on 06/06/18 for BETH. She was transferred to [facility] where her transplant surgeon, Dr. Palacios, accepted her. It is unclear for how long she was there before being discharged to [facility]. PMH: HTN, DM, CKD on HD MWF s/p kidney transplant, dementia, herpes simplex Med: amlodipine 10mg po daily, Bacitracin for lower lip, Prozac 20mg po daily, Lasix 40mg po daily, metoprolol ER 50mg daily, mycophenylate 450mg po BID, ondensetron 4mg po q6 prn, prednisone 5mg po daily, Crestor 5mg po HS, sodium bicarb 1300mg po BID, Tylenol 650mg po q4 prn All: denies PSxHx: kidney transplant at [facility] 10 years ago, C/section 34 years ago FamHx: daughter - kidney stones. otherwise unknown SocHx: denies ever tobacco, alcohol, illicit drugs. 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[place]; retired upon arrival to the Daughter: Abby Palma [phone] Full Code Present on Admission - Present on Admission Any Indicators Present on Admission: No Review of Systems - Review of Systems Systems not reviewed;Unavailable: Altered Mental Status 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) - HEMATOLOGICAL/ONCOLOGICAL Hx Human Immunodeficiency Virus (HIV): No - INTEGUMENTARY Hx Dermatological Problems: No - MUSCULOSKELETAL/RHEUMATOLOGICAL Hx Falls: No - GASTROINTESTINAL Hx Gastrointestinal Disorders: No - GENITOURINARY/GYNECOLOGICAL Hx Sexually Transmitted Disorders: No - PSYCHIATRIC Hx Anxiety: Yes Hx Depression: Yes Hx Substance Use: No - SURGICAL HISTORY Hx Surgeries: Yes Hx Section: Yes Hx Kidney Transplant: Yes (right kidney 2009) - ANESTHESIA Hx Anesthesia: Yes Hx Anesthesia Reactions: No Meds Allergies/Adverse Reactions: Allergies Allergy/AdvReac Type Severity Reaction Status Date / Time enalapril Allergy Severe ANGIOEDEMA Verified 07/08/18 16:41 Physical Exam - Constitutional Appears: No Acute Distress, Cachectic, Chronically Ill - Head Exam Head Exam: ATRAUMATIC, NORMOCEPHALIC Additional comments: head chronically turned to L. moans when trying to center head. - Eye Exam Eye Exam: EOMI, PERRL Pupil Exam: NORMAL ACCOMODATION - ENT Exam ENT Exam: Mucous Membranes Dry - Neck Exam Neck exam: Negative for: Lymphadenopathy, Tenderness Additional comments: neck turned to L with hypertonic SCM - Respiratory Exam Respiratory Exam: Clear to Auscultation Bilateral, NORMAL BREATHING PATTERN. ab sent: Rales, Rhonchi, Wheezes - Cardiovascular Exam Cardiovascular Exam: Tachycardia, +S1, +S2. absent: JVD, Systolic Murmur - GI/Abdominal Exam GI & Abdominal Exam: Normal Bowel Sounds, Soft, Tenderness. absent: Distended, Guarding - Extremities Exam Extremities exam: Positive for: pedal pulses present Additional comments: IV access in R hand AVF on L arm, palpable thrill, audible bruit R chest cath for HD - Back Exam Back exam: absent: CVA tenderness (L), CVA tenderness (R) - Neurological Exam Neurological exam: Alert, Altered Additional comments: moves all 4 extremities mostly uncooperative with exam due to lack of understanding - Skin Skin Exam: Dry, Normal Color, Warm Results - Vital Signs Recent Vital Signs: Last Vital Signs Temp 98.9 F 07/08/18 21:46 Pulse 98 H 07/08/18 21:46 Resp 22 07/08/18 21:46 BP 157/67 H 07/08/18 21:46 Pulse Ox 94 L 07/08/18 21:46 - Labs Result Diagrams: 07/08/18 17:08 07/08/18 17:08 Labs: Laboratory Results - last 24 hr 07/08/18 07/08/18 07/08/18 17:08 17:08 17:10 WBC 13.5 H D RBC 2.61 L Hgb 7.4 L D Hct 21.9 L MCV 84.1 MCH 28.3 MCHC 33.6 RDW 14.8 H Plt Count 40 L MPV 10.9 Neut % (Auto) 95.1 H Lymph % (Auto) 1.3 L [place] % (Auto) 0.8 Eos % (Auto) 2.5 Baso % (Auto) 0.3 Neut # (Auto) 12.8 H Lymph # (Auto) 0.2 L [place] # (Auto) 0.1 Eos # (Auto) 0.3 Baso # (Auto) 0.0 Neutrophils % (Manual) 97 H Lymphocytes % (Manual) 2 L Monocytes % (Manual) 1 Platelet Estimate Decreased L Hypochromasia (manual) Slight Poikilocytosis (manual Slight Anisocytosis (manual) Slight Microcytosis (manual) Slight Lenny Cells Slight PT INR APTT Sodium 132 Potassium 3.4 L Chloride 89 L Carbon Dioxide 26 Anion Gap 21 H BUN 30 H Creatinine 2.3 H Est GFR ( Amer) 25 Est GFR (Non-Af Amer) 21 POC Glucose (mg/dL) 249 H Random Glucose 204 H D Calcium 9.3 Phosphorus 3.0 Magnesium 1.9 Total Bilirubin 1.1 AST 42 H ALT 12 Alkaline Phosphatase 122 Troponin I 0.3340 H* Total Protein 5.1 L Albumin 3.1 L Globulin 2.0 L Albumin/Globulin Ratio 1.6 Blood Type 04/08/19 04/08/19 04/08/19 20:14 23:13 23:16 WBC RBC Hgb Hct MCV MCH MCHC RDW Plt Count MPV Neut % (Auto) Lymph % (Auto) [place] % (Auto) Eos % (Auto) Baso % (Auto) Neut # (Auto) Lymph # (Auto) [place] # (Auto) Eos # (Auto) Baso # (Auto) Neutrophils % (Manual) Lymphocytes % (Manual) Monocytes % (Manual) Platelet Estimate Hypochromasia (manual) Poikilocytosis (manual Anisocytosis (manual) Microcytosis (manual) [place] Cells PT 12.3 H INR 1.1 APTT 26 Sodium Potassium Chloride Carbon Dioxide Anion Gap BUN Creatinine Est GFR ( Amer) Est GFR (Non-Af Amer) POC Glucose (mg/dL) 267 H Random Glucose Calcium Phosphorus Magnesium Total Bilirubin AST ALT Alkaline Phosphatase Troponin I Total Protein Albumin Globulin Albumin/Globulin Ratio Blood Type B POSITIVE Assessment & Plan - Assessment and Plan (Free Text) Assessment: 72yo F PMH HTN, DM, CKD s/p renal transplant, ESRD on HD MWF, dementia admitted for NSTEMI and AMS. Plan: AMS CT Head without contrast (07/08): 6 mm hyperdensity in the right frontal lobe worrisome for small intraparenchymal hemorrhage. Chronic nonspecific white matter changes. 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 Basal ganglia lacunar infarcts. - f/u repeat CT Head with and without contrast - f/u coags - Zosyn 2.25g IVPB q8 (started 07/09) - f/u Blood Cx - Neurosurgery consulted: Dr. Diaz - help appreciated NSTEMI Trop 0.3340. EKG NSR@92 CXR (07/08): negative - f/u repeat Trop BETH on CKD s/p renal transplant ESRD on HD MWF Anemia of Chronic Disease BUN/Cr 30/2.3 OA. Baseline varies compared to previous admissions H/H 7.4/21.9 OA. Baseline on chart review in 10s. However, comparable to labs se nt with patient from [facility] Per [facility] chart, patient receives 1u PRBC with HD. Unsure of if received unit during today's HD session. During previous admission, patient was told the transplanted kidney was starting to get rejected 1u FFP transfused in ICU - hold home mycophenolate - hold home prednisone - Nephro consulted: Dr. English - help appreciated Hypertension Patient and daughter admit that she's been noncompliant with home medications - hold home amlodipine, furosemide, and metoprolol - monitor vitals - restart as needed Diabetes Mellitus Hgb A1c (06/06): 6.4 - Accuchecks ACHS - ISS - hypoglycemia protocol - Crestor 5mg po HS Depression - home Prozac 20mg po daily PPx - DVT: SCDs, chemical AC CI 2/2 intraparenchymal hemorrhage - GI: Protonix 40mg IVP daily - Diet: Renal - IVF: NS@40 - home Tylenol 650mg PO q6 prn for fever or mild pain Dispo: SW on case d/w Dr. Savita Khoury PGY-1 - Date & Time Date: 07/08/18 Time: 20:15 <Josse Barney - Last Filed: 07/09/18 06:22> Results - Vital Signs Recent Vital Signs: Last Vital Signs Temp 98 F 07/09/18 04:00 Pulse 89 07/09/18 04:10 Resp 35 H 07/09/18 04:10 BP 116/57 L 07/09/18 04:07 Pulse Ox 96 07/09/18 04:10 - Labs Result Diagrams: 07/08/18 17:08 07/08/18 17:08 Labs: Laboratory Results - last 24 hr 07/08/18 07/08/18 07/08/18 17:08 17:08 17:10 WBC 13.5 H D RBC 2.61 L Hgb 7.4 L D Hct 21.9 L MCV 84.1 MCH 28.3 MCHC 33.6 RDW 14.8 H Plt Count 40 L MPV 10.9 Neut % (Auto) 95.1 H Lymph % (Auto) 1.3 L [place] % (Auto) 0.8 Eos % (Auto) 2.5 Baso % (Auto) 0.3 Neut # (Auto) 12.8 H Lymph # (Auto) 0.2 L [place] # (Auto) 0.1 Eos # (Auto) 0.3 Baso # (Auto) 0.0 Neutrophils % (Manual) 97 H Lymphocytes % (Manual) 2 L Monocytes % (Manual) 1 Platelet Estimate Decreased L Hypochromasia (manual) Slight Poikilocytosis (manual Slight Anisocytosis (manual) Slight Microcytosis (manual) Slight Lenny Cells Slight PT INR APTT Sodium 132 Potassium 3.4 L Chloride 89 L Carbon Dioxide 26 Anion Gap 21 H BUN 30 H Creatinine 2.3 H Est GFR ( Amer) 25 Est GFR (Non-Af Amer) 21 POC Glucose (mg/dL) 249 H Random Glucose 204 H D Lactic Acid Calcium 9.3 Phosphorus 3.0 Magnesium 1.9 Total Bilirubin 1.1 AST 42 H ALT 12 Alkaline Phosphatase 122 Troponin I 0.3340 H* Total Protein 5.1 L Albumin 3.1 L Globulin 2.0 L Albumin/Globulin Ratio 1.6 Blood Type Antibody Screen 07/08/18 07/08/18 07/08/18 20:14 23:06 23:13 WBC RBC Hgb Hct MCV MCH MCHC RDW Plt Count MPV Neut % (Auto) Lymph % (Auto) [place] % (Auto) Eos % (Auto) Baso % (Auto) Neut # (Auto) Lymph # (Auto) [place] # (Auto) Eos # (Auto) Baso # (Auto) Neutrophils % (Manual) Lymphocytes % (Manual) Monocytes % (Manual) Platelet Estimate Hypochromasia (manual) Poikilocytosis (manual Anisocytosis (manual) Microcytosis (manual) [place] Cells PT 12.3 H INR 1.1 APTT 26 Sodium Potassium Chloride Carbon Dioxide Anion Gap BUN Creatinine Est GFR ( Amer) Est GFR (Non-Af Amer) POC Glucose (mg/dL) 267 H Random Glucose Lactic Acid 1.3 Calcium Phosphorus Magnesium Total Bilirubin AST ALT Alkaline Phosphatase Troponin I Total Protein Albumin Globulin Albumin/Globulin Ratio Blood Type Antibody Screen 07/08/18 23:16 WBC RBC Hgb Hct MCV MCH MCHC RDW Plt Count MPV Neut % (Auto) Lymph % (Auto) [place] % (Auto) Eos % (Auto) Baso % (Auto) Neut # (Auto) Lymph # (Auto) [place] # (Auto) Eos # (Auto) Baso # (Auto) Neutrophils % (Manual) Lymphocytes % (Manual) Monocytes % (Manual) Platelet Estimate Hypochromasia (manual) Poikilocytosis (manual Anisocytosis (manual) Microcytosis (manual) [place] Cells PT INR APTT Sodium Potassium Chloride Carbon Dioxide Anion Gap BUN Creatinine Est GFR ( Amer) Est GFR (Non-Af Amer) POC Glucose (mg/dL) Random Glucose Lactic Acid Calcium Phosphorus Magnesium Total Bilirubin AST ALT Alkaline Phosphatase Troponin I Total Protein Albumin Globulin Albumin/Globulin Ratio Blood Type B POSITIVE Antibody Screen Negative Assessment & Plan - Date & Time Date: 07/09/18 (I have seen and examined the patient. I agree with the findings and plan of care as documented by Dr. Khoury. Patient with cerebral hemorrhage and Acute mental status change. Consult to neurosurg. Neurchecks. Avoid heparin/lovenox. Also with ESRD on dialysis and elevated troponin. ROMIx3 with EKG. Admit to ICU for further management and close monitoring. ) Time: 06:20 Attending/Attestation - Attestation I have personally seen and examined this patient.: Yes I have fully participated in the care of the patient.: Yes I have reviewed all pertinent clinical information: Yes
[2018-07-09] MEDS: (Novolin R) Insulin Human Regular 100 units/ml vial SC SCH ×5 (04:45→22:00)
[2018-07-09] MEDS ORDERED: (Novolin R) Insulin Human Regular 100 units/ml vial SC SCH (07:30)
[2018-07-09] MEDS: Piperacill/Tazo 2.25gm in Dex 2.25 GM/50 ML BAG IVPB SCH ×3 (08:19→22:27)
--- NOTE | 2018-07-09 08:20 | CP.PCM.PN ---
Subjective - Date & Time of Evaluation Date of Evaluation: 07/09/18 Time of Evaluation: 08:19 - Subjective Subjective: 6 mm hemorrhage in right frontal lobe not surgical case as per neurology Objective - Vital Signs/Intake and Output Vital Signs (last 24 hours): Temp Pulse Resp BP Pulse Ox 98 F 112 H 37 H 135/83 96 07/09/18 04:00 07/09/18 08:00 07/09/18 08:00 07/09/18 07:08 07/09/18 08:00 Intake and Output: 07/09/18 07/09/18 06:59 18:59 Intake Total 417 Balance 417 - Medications Medications: Current Medications Acetaminophen (Tylenol 325mg Tab) 650 mg PO Q6 PRN PRN Reason: Fever >100.4 F Dextrose (Dextrose 50% Inj) 0 ml IV STAT PRN; Protocol PRN Reason: Hypoglycemia Protocol Dextrose (Glutose 15) 0 gm PO ONCE PRN; Protocol PRN Reason: Hypoglycemia Protocol Fluoxetine HCl (Prozac) 20 mg PO DAILY JUAN M Glucagon (Glucagen Diagnostic Kit) 0 mg IM STAT PRN; Protocol PRN Reason: Hypoglycemia Protocol Dextrose (Dextrose 5% In Water 1000 Ml) 1,000 mls @ 0 mls/hr IV .Q0M PRN; Protocol PRN Reason: Hypoglycemia Protocol Sodium Chloride (Sodium Chloride 0.45%) 1,000 mls @ 40 mls/hr IV .Q24H JUAN M Last Admin: 07/08/18 22:50 Dose: 40 mls/hr Piperacillin Sod/Tazobactam Sod (Zosyn 2.25 Gm Iv Premix) 2.25 gm in 50 mls @ 50 mls/hr IVPB Q8H JUAN M Last Admin: 07/08/18 23:15 Dose: 50 mls/hr Insulin Human Regular (Novolin R) 0 unit SC ACHS JUAN M; Protocol Pantoprazole Sodium (Protonix Inj) 40 mg IVP DAILY JUAN M Rosuvastatin Calcium (Crestor) 5 mg PO HS JUAN M Last Admin: 07/08/18 23:09 Dose: 5 mg - Labs Labs: 07/08/18 17:08 07/08/18 17:08 PT 12.3 SECONDS (9.7-12.2) H 07/08/18 20:14 INR 1.1 07/08/18 20:14 APTT 26 SECONDS (21-34) 07/08/18 20:14
[2018-07-09 08:42] LABS: INR 1.2
[2018-07-09 08:45] LABS: BASO % 0.3 % (0.0-2.0); EOS # 0.3 K/uL (0.0-0.7); EOS % 2.6 % (0.0-4.0); HEMOGLOBIN 7.9 g/dL (11.0-16.0); LYMPH # 0.2 K/uL (1.0-4.3); LYMPH % 1.8 % (20.0-40.0); MEAN CELL VOLUME 85.8 fL (81.0-99.0); MEAN CORPUSCULAR HEMOGLOBIN 28.5 pg (27.0-31.0); MEAN CORPUSCULAR HGB CONC 33.2 g/dL (33.0-37.0); MEAN PLATELET VOLUME 11.1 fL (7.2-11.7); MONO # 0.1 K/uL (0.0-0.8); MONO % 1.1 % (0.0-10.0); NEUT % 94.2 % (50.0-75.0); RBC 2.76 Mil/uL (3.80-5.20); RED CELL DISTRIBUTION WIDTH 15.4 % (11.5-14.5); WHITE BLOOD COUNT 12.7 K/uL (4.8-10.8)
[2018-07-09 08:52] LABS: PLATELET COUNT 22 K/uL (130-400)
--- NOTE | 2018-07-09 09:16 | CP.PCM.PN ---
Subjective - Date & Time of Evaluation Date of Evaluation: 07/09/18 Time of Evaluation: 09:07 - Subjective Subjective: seen and examined by me ,patient is confused and not in distress,has cough,afebrile,saturating 97 in room air BP 118/76,pulse 114 Objective - Vital Signs/Intake and Output Vital Signs (last 24 hours): Temp Pulse Resp BP Pulse Ox 98 F 116 H 26 H 139/91 H 96 07/09/18 08:00 07/09/18 08:00 07/09/18 08:00 07/09/18 08:00 07/09/18 08:00 Intake and Output: 07/09/18 07/09/18 06:59 18:59 Intake Total 417 50 Balance 417 50 - Medications Medications: Current Medications Acetaminophen (Tylenol 325mg Tab) 650 mg PO Q6 PRN PRN Reason: Fever >100.4 F Dextrose (Dextrose 50% Inj) 0 ml IV STAT PRN; Protocol PRN Reason: Hypoglycemia Protocol Dextrose (Glutose 15) 0 gm PO ONCE PRN; Protocol PRN Reason: Hypoglycemia Protocol Fluoxetine HCl (Prozac) 20 mg PO DAILY JUAN M Glucagon (Glucagen Diagnostic Kit) 0 mg IM STAT PRN; Protocol PRN Reason: Hypoglycemia Protocol Dextrose (Dextrose 5% In Water 1000 Ml) 1,000 mls @ 0 mls/hr IV .Q0M PRN; Protocol PRN Reason: Hypoglycemia Protocol Piperacillin Sod/Tazobactam Sod (Zosyn 2.25 Gm Iv Premix) 2.25 gm in 50 mls @ 50 mls/hr IVPB Q8H JUAN M Last Admin: 07/09/18 08:19 Dose: 50 mls/hr Vancomycin HCl 1 gm/ Sodium (Chloride) 250 mls @ 166.7 mls/hr IVPB ONCE ONE; Protocol Stop: 07/09/18 10:59 Insulin Human Regular (Novolin R) 0 unit SC ACHS JUAN M; Protocol Last Admin: 07/09/18 08:34 Dose: 8 units Pantoprazole Sodium (Protonix Inj) 40 mg IVP DAILY JUAN M Rosuvastatin Calcium (Crestor) 5 mg PO HS JUAN M Last Admin: 07/08/18 23:09 Dose: 5 mg - Labs Labs: 07/09/18 08:21 07/08/18 17:08 PT 13.0 SECONDS (9.7-12.2) H 07/09/18 08:21 INR 1.2 07/09/18 08:21 APTT 26 SECONDS (21-34) 07/08/18 20:14 - Constitutional Appears: Confused, Chronically Ill - Head Exam Head Exam: NORMAL INSPECTION - Eye Exam Eye Exam: Normal appearance - ENT Exam ENT Exam: Mucous Membranes Moist - Neck Exam Neck Exam: Full ROM - Respiratory Exam Respiratory Exam: Clear to Ausculation Bilateral, NORMAL BREATHING PATTERN - Cardiovascular Exam Cardiovascular Exam: REGULAR RHYTHM - GI/Abdominal Exam GI & Abdominal Exam: Soft, Normal Bowel Sounds - Extremities Exam Extremities Exam: Full ROM - Back Exam Back Exam: NORMAL INSPECTION - Neurological Exam Neurological Exam: absent: Awake, Oriented x3 (confused) - Psychiatric Exam Psychiatric exam: Normal Mood Assessment and Plan - Assessment and Plan (Free Text) Assessment: Ms. Palma is a 72 year old [place] female with a PMH of hypertension, diabetes, chronic kidney disease on hemodialysis MWF s/p kidney transplant 10 years ago, and dementia here today for acute change in speech and energy noted after hemodialysis 07/08/18. Per daughter, she has had a decreased appetite for the last two weeks. Due to lack of motivation in swallowing, she has been eating a lot less and become non compliant with her medications. Speech is unintelligible, but patient is able to respond to yes/no questioning appropriate ly. Complains of generalized weakness and pain. Denies chest pain, shortness of breath, headache, n/v/c/d. Complains of neck pain from chronic L sided rotation. 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 also had TTP s/p plasmapharesis. pt mostly confused Plan: 1.Thrombotic thrombocytopenic purpura Patient has low platelets and intraparenchymal bleeding 2U FFP and 1 bag platelets and plasma exchange as per Dr Anthony dao to use dialysis catheter per nephrology for plasma exchange patient has intraparenchymal bleeding 6mm,TTP repeat CT head shows no changes. Neurosurgery and neurologist was consulted Echo shows apical thrombus 2.ESRD on HD,Kidney transplant rejection continue HD as per nephrology group Continue prednisone,she was on myfortic,we will follow with nephrology recommendation 3.Bacteremia gram possitive cocci Vanco 1gram given this morning follow vanco level in the monring d/w Dr mcmillan we will start on acyclovir, pt has AMS and Immuno compromised 4.NSTMI Elevated troponin may be due to stress and renal failure Echo shows apical thrombus no anticoagulation due to bleeding, 5.HTN 6.DM-monitor sugar 7.Depression 8.DVT prophy-Bleeding risk ,not on anticoag GI prophy-protonix Prognosis poor- Had long discussion with her Daughter Cayla Weems this morning and in the afternoon She states that she understand her critical condition but she wants us to continue all treatment including CPR if needed.
--- NOTE | 2018-07-09 09:24 | CT ---
Date of service: 07/09/2018 PROCEDURE: CT HEAD WITHOUT CONTRAST. HISTORY: Intra parenchymal bleeding COMPARISON: 07/08/2018 TECHNIQUE: Axial computed tomography images were obtained through the head/brain without intravenous contrast. Radiation dose: Total exam DLP = 734.15 mGy-cm. This CT exam was performed using one or more of the following dose reduction techniques: Automated exposure control, adjustment of the mA and/or kV according to patient size, and/or use of iterative reconstruction technique. FINDINGS: HEMORRHAGE: Focal right frontal parenchymal hematoma unchanged in size compared to prior examination. This measures maximally 7 mm. There is minimal surrounding vasogenic edema. No other intracranial hemorrhage is appreciated elsewhere. BRAIN: There is an old right [employer] territory occipital infarct. There is no evidence of acute infarct. VENTRICLES: Unremarkable. No hydrocephalus. CALVARIUM: Unremarkable. PARANASAL SINUSES: Unremarkable as visualized. No significant inflammatory changes. MASTOID AIR CELLS: Unremarkable as visualized. No inflammatory changes. OTHER FINDINGS: None. IMPRESSION: Stable small right frontal parenchymal hemorrhage. Old right occipital infarct. Mild chronic periventricular white matter ischemic change.
--- NOTE | 2018-07-09 09:34 | PCM.SURG1 ---
Surgeon's Initial Post Op Note - Surgeon's Notes Surgeon: Henrry Gutierres MD Manager Transit: NONE Type of Anesthesia: Local Pre-Operative Diagnosis: Poor venous access Operative Findings: US showed a patent right brachial vein Post-Operative Diagnosis: Poor venous access Operation Performed: Double lumen picc placement 30 cm Specimen/Specimens Removed: none Estimated Blood Loss: EBL {In ML}: 2 Blood Products Given: N/A Drains Used: No Drains Post-Op Condition: Fair Date of Surgery/Procedure: 07/09/18 Time of Surgery/Procedure: 09:30
[2018-07-09 09:49] LABS: BANDS 10 % (0-2); LYMPHOCYTE 2 % (20-40); MONOCYTE 2 % (0-10); NEUTROPHIL 86 % (50-75); PLATELET ESTIMATE MARKEDLY DECREASED (NORMAL); TOTAL CELLS COUNTED 100
[2018-07-09 09:51] LABS: ANISOCYTOSIS SLIGHT; BURR CELLS MODERATE; HYPOCHROMIC SLIGHT; POIKILOCYTOSIS MODERATE
[2018-07-09 09:52] LABS: LARGE PLATELETS PRESENT
--- NOTE | 2018-07-09 11:10 | CP.PCM.CON ---
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 nephrovite 1 tab/day Hypertension control with meds as ordered. pt not on RAAS kyung, will defer it due to BETH Monitor I/O, daily weights and renal function Anema: will add epogen with HD. PRBC as needed secn hyperPTH: added sensipar 60 mg/d, recent PTH 1000 Kidney Transplant: continue with prednisone 5 mg/d. pt was on myfortic 3 tab bid at [place], will clarifiy with T[facility] center, if need to continue with it. hematology eval for thrombocytopenia Dose meds/antibiotics for dialysis status. Avoid fleets enema/magnesium based laxatives. Glycemic control, renal diet. Further work up for as per primary team. Thanks for allowing me to participate in care of your patient. Will follow with you. Please call if any Qs. had d/w team and daughter. Dr Artie English Office: [phone] CC; AMS reason for consult: BETH on HD kidney tx status HPI: Pt is a 72 FM with hx of HTN (years), DM, ESRD s/p LURT @ [facility] ([facility] in 2009 on long term care social worker prednisone 5 mg, tacrolimus and myfortic, memory impairment with non-compliance to meds lately recently admitted to [facility] may 2018 with BETH and transferred to [facility], had kidney biopsy suggested acute rejection treated with immunosuppression however pt required dialysis. also had TTP s/p plasmapharesis. her prograf level were undetectable. She was d/c to [place] and presented to hospital with complaints of AMS and renal consult for BETH now on dialysis and kidney transplant management. pt mostly non communicative No recent iodinated contrast exposure. ROS: hx unable to obtain from pt Physical Examination: General Appearance: in no acute respiratory distress, ill appearing mostly non communicative Vitals reviewed and noted as below Head; Atraumatic, normocephalic ENT: no ulcers no thrush. Tongue is midline. Oropharynx: no rash. has ulcer on lower lip ? herpetic EYES: b/l PERRLA Neck; supple no lymphadenopathy, no thyromegaly or bruit Lungs: Normal respiratory rate/effort. Breath sounds b/l with equal clear Heart: Increased rate. s1s2 normal. No rub or gallop. Extremities: no pitting edema. No varicose veins. RUE swelling + Neurological: Patient is awake but non communicative Skin: dry and warm. Normal turgor. No rash. Palpitation: Normal elasticity for age Abdomen: Abdomen is non-distended . Bowel sounds +. There is no abdominal tenderness, no guarding/rigidity or organomegaly Psych: lack insight. MSK: no specific joint tenderness or swelling. Digits and nails normal, no deformity : Rt transplant kidney + bladder not palpable dialysis access: permacath Labs/imaging/EKG reviewed. Past medical history, past surgical history, social history, allergy reviewed and noted as below Family hx; no hx of CKD. non contributory 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) - HEMATOLOGICAL/ONCOLOGICAL Hx Human Immunodeficiency Virus (HIV): No - INTEGUMENTARY Hx Dermatological Problems: No - MUSCULOSKELETAL/RHEUMATOLOGICAL Hx Falls: No - GASTROINTESTINAL Hx Gastrointestinal Disorders: No - GENITOURINARY/GYNECOLOGICAL Hx Sexually Transmitted Disorders: No - PSYCHIATRIC Hx Anxiety: Yes Hx Depression: Yes Hx Substance Use: No - SURGICAL HISTORY Hx Surgeries: Yes Hx Section: Yes Hx Kidney Transplant: Yes (right kidney 2009) - ANESTHESIA Hx Anesthesia: Yes Hx Anesthesia Reactions: No Meds Allergies/Adverse Reactions: Allergies Allergy/AdvReac Type Severity Reaction Status Date / Time enalapril Allergy Severe ANGIOEDEMA Verified 07/08/18 16:41 - Medications Medications: Current Medications Acetaminophen (Tylenol 325mg Tab) 650 mg PO Q6 PRN PRN Reason: Fever >100.4 F Dextrose (Dextrose 50% Inj) 0 ml IV STAT PRN; Protocol PRN Reason: Hypoglycemia Protocol Dextrose (Glutose 15) 0 gm PO ONCE PRN; Protocol PRN Reason: Hypoglycemia Protocol Fluoxetine HCl (Prozac) 20 mg PO DAILY [facility] Glucagon (Glucagen Diagnostic Kit) 0 mg IM STAT PRN; Protocol PRN Reason: Hypoglycemia Protocol Dextrose (Dextrose 5% In Water 1000 Ml) 1,000 mls @ 0 mls/hr IV .Q0M PRN; Protocol PRN Reason: Hypoglycemia Protocol Piperacillin Sod/Tazobactam Sod (Zosyn 2.25 Gm Iv Premix) 2.25 gm in 50 mls @ 50 mls/hr IVPB Q8H [facility] Last Admin: 07/09/18 08:19 Dose: 50 mls/hr Insulin Human Regular (Novolin R) 0 unit SC ACHS [facility]; Protocol Last Admin: 07/09/18 08:34 Dose: 8 units Metoprolol Succinate (Toprol Xl) 50 mg PO DAILY [facility] Pantoprazole Sodium (Protonix Inj) 40 mg IVP DAILY [facility] Last Admin: 07/09/18 10:54 Dose: 40 mg Prednisone (Prednisone Tab) 5 mg PO DAILY [facility] Rosuvastatin Calcium (Crestor) 5 mg PO HS [facility] Last Admin: 07/08/18 23:09 Dose: 5 mg Vitamin B Complex/Vit C/Folic Acid (Nephro-Douglas) 1 tab PO 0800 [facility] Results - Vital Signs Recent Vital Signs: Last Vital Signs Temp 98 F 07/09/18 08:00 Pulse 98 H 07/09/18 10:50 Resp 39 H 07/09/18 10:50 BP 115/63 07/09/18 10:07 Pulse Ox 97 07/09/18 08:50 - Labs Result Diagrams: 07/09/18 08:21 07/08/18 17:08 Labs: Laboratory Results - last 24 hr 07/08/18 07/08/18 07/08/18 17:08 17:08 17:10 WBC 13.5 H D RBC 2.61 L Hgb 7.4 L D Hct 21.9 L MCV 84.1 MCH 28.3 MCHC 33.6 RDW 14.8 H Plt Count 40 L MPV 10.9 Neut % (Auto) 95.1 H Lymph % (Auto) 1.3 L [place] % (Auto) 0.8 Eos % (Auto) 2.5 Baso % (Auto) 0.3 Neut # (Auto) 12.8 H Lymph # (Auto) 0.2 L [place] # (Auto) 0.1 Eos # (Auto) 0.3 Baso # (Auto) 0.0 Neutrophils % (Manual) 97 H Band Neutrophils % Lymphocytes % (Manual) 2 L Monocytes % (Manual) 1 Platelet Estimate Decreased L Large Platelets Hypochromasia (manual) Slight Poikilocytosis (manual Slight Anisocytosis (manual) Slight Microcytosis (manual) Slight [place] Cells Slight PT INR APTT Sodium 132 Potassium 3.4 L Chloride 89 L Carbon Dioxide 26 Anion Gap 21 H BUN 30 H Creatinine 2.3 H Est GFR ( Amer) 25 Est GFR (Non-Af Amer) 21 POC Glucose (mg/dL) 249 H Random Glucose 204 H D Lactic Acid Calcium 9.3 Phosphorus 3.0 Magnesium 1.9 Total Bilirubin 1.1 AST 42 H ALT 12 Alkaline Phosphatase 122 Troponin I 0.3340 H* Total Protein 5.1 L Albumin 3.1 L Globulin 2.0 L Albumin/Globulin Ratio 1.6 Blood Type Antibody Screen 07/08/18 07/08/18 07/08/18 20:14 23:06 23:13 WBC RBC Hgb Hct MCV MCH MCHC RDW Plt Count MPV Neut % (Auto) Lymph % (Auto) [place] % (Auto) Eos % (Auto) Baso % (Auto) Neut # (Auto) Lymph # (Auto) [place] # (Auto) Eos # (Auto) Baso # (Auto) Neutrophils % (Manual) Band Neutrophils % Lymphocytes % (Manual) Monocytes % (Manual) Platelet Estimate Large Platelets Hypochromasia (manual) Poikilocytosis (manual Anisocytosis (manual) Microcytosis (manual) [place] Cells PT 12.3 H INR 1.1 APTT 26 Sodium Potassium Chloride Carbon Dioxide Anion Gap BUN Creatinine Est GFR ( Amer) Est GFR (Non-Af Amer) POC Glucose (mg/dL) 267 H Random Glucose Lactic Acid 1.3 Calcium Phosphorus Magnesium Total Bilirubin AST ALT Alkaline Phosphatase Troponin I Total Protein Albumin Globulin Albumin/Globulin Ratio Blood Type Antibody Screen 07/08/18 07/09/18 07/09/18 23:16 08:21 08:21 WBC RBC Hgb Hct MCV MCH MCHC RDW Plt Count MPV Neut % (Auto) Lymph % (Auto) [place] % (Auto) Eos % (Auto) Baso % (Auto) Neut # (Auto) Lymph # (Auto) [place] # (Auto) Eos # (Auto) Baso # (Auto) Neutrophils % (Manual) Band Neutrophils % Lymphocytes % (Manual) Monocytes % (Manual) Platelet Estimate Large Platelets Hypochromasia (manual) Poikilocytosis (manual Anisocytosis (manual) Microcytosis (manual) [place] Cells PT 13.0 H INR 1.2 APTT Sodium Potassium Chloride Carbon Dioxide Anion Gap BUN Creatinine Est GFR ( Amer) Est GFR (Non-Af Amer) POC Glucose (mg/dL) Random Glucose Lactic Acid Calcium Phosphorus 5.8 H Magnesium 2.1 Total Bilirubin AST ALT Alkaline Phosphatase Troponin I Total Protein Albumin Globulin Albumin/Globulin Ratio Blood Type B POSITIVE Antibody Screen Negative 07/09/18 08:21 WBC 12.7 H RBC 2.76 L Hgb 7.9 L Hct 23.7 L MCV 85.8 MCH 28.5 MCHC 33.2 RDW 15.4 H Plt Count 22 L* D MPV 11.1 Neut % (Auto) 94.2 H Lymph % (Auto) 1.8 L [place] % (Auto) 1.1 Eos % (Auto) 2.6 Baso % (Auto) 0.3 Neut # (Auto) 12.0 H Lymph # (Auto) 0.2 L [place] # (Auto) 0.1 Eos # (Auto) 0.3 Baso # (Auto) 0.0 Neutrophils % (Manual) 86 H Band Neutrophils % 10 H Lymphocytes % (Manual) 2 L Monocytes % (Manual) 2 Platelet Estimate Markedly decreased L Large Platelets Present Hypochromasia (manual) Slight Poikilocytosis (manual Moderate Anisocytosis (manual) Slight Microcytosis (manual) [place]enny Cells Moderate PT INR APTT Sodium Potassium Chloride Carbon Dioxide Anion Gap BUN Creatinine Est GFR ( Amer) Est GFR (Non-Af Amer) POC Glucose (mg/dL) Random Glucose Lactic Acid Calcium Phosphorus Magnesium Total Bilirubin AST ALT Alkaline Phosphatase Troponin I Total Protein Albumin Globulin Albumin/Globulin Ratio Blood Type Antibody Screen
--- NOTE | 2018-07-09 11:58 | CP.PCM.CON ---
History of Present Illness - History of Present Illness History of Present Illness: 72 year old female with a history of early dementia, HTN, DM, renal disease s/p renal transplant in 2009, TTP s/p plasma exchange in 05/2018 at [facility], presenting from rehab with worsening weakness and confusion, with TTP. The patient is known to me from last months admission and diagnosed with TTP. She had been on clopidogrel and tacrolimus and the possibility of medication induced MAHA was considered. She was transferred to [facility] and underwent plasma exchange. Peripheral smear: mild toxic granulation noted, several schistocytes noted per hpf, reduced platelets, giant platelets noted, no platelet clumping. Past medical history: HTN, DM, renal disease s/p renal transplant in 2009. Past surgical history: renal transplant, Family history: Denies hematologic and oncologic problems Social history: Former tobacco Allergies: Enalapril. Review of systems: All remaining review of systems including HEENT, cardiovascular, respiratory, gastrointestinal, genitourinary, musculoskeletal, dermatologic, neurologic, and psychiatric are negative unless mentioned in the HPI. 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) - HEMATOLOGICAL/ONCOLOGICAL Hx Human Immunodeficiency Virus (HIV): No - INTEGUMENTARY Hx Dermatological Problems: No - MUSCULOSKELETAL/RHEUMATOLOGICAL Hx Falls: No - GASTROINTESTINAL Hx Gastrointestinal Disorders: No - GENITOURINARY/GYNECOLOGICAL Hx Sexually Transmitted Disorders: No - PSYCHIATRIC Hx Anxiety: Yes Hx Depression: Yes Hx Substance Use: No - SURGICAL HISTORY Hx Surgeries: Yes Hx Section: Yes Hx Kidney Transplant: Yes (right kidney 2009) - ANESTHESIA Hx Anesthesia: Yes Hx Anesthesia Reactions: No Meds Allergies/Adverse Reactions: Allergies Allergy/AdvReac Type Severity Reaction Status Date / Time enalapril Allergy Severe ANGIOEDEMA Verified 07/08/18 16:41 - Medications Medications: Current Medications Acetaminophen (Tylenol 325mg Tab) 650 mg PO Q6 PRN PRN Reason: Fever >100.4 F Cinacalcet (Sensipar) 60 mg PO QPM [facility] Dextrose (Dextrose 50% Inj) 0 ml IV STAT PRN; Protocol PRN Reason: Hypoglycemia Protocol Dextrose (Glutose 15) 0 gm PO ONCE PRN; Protocol PRN Reason: Hypoglycemia Protocol Epoetin [place] Ramon (Procrit) 10,000 unit IV MWF [facility] Fluoxetine HCl (Prozac) 20 mg PO DAILY [facility] Glucagon (Glucagen Diagnostic Kit) 0 mg IM STAT PRN; Protocol PRN Reason: Hypoglycemia Protocol Dextrose (Dextrose 5% In Water 1000 Ml) 1,000 mls @ 0 mls/hr IV .Q0M PRN; Protocol PRN Reason: Hypoglycemia Protocol Piperacillin Sod/Tazobactam Sod (Zosyn 2.25 Gm Iv Premix) 2.25 gm in 50 mls @ 50 mls/hr IVPB Q8H [facility] Last Admin: 07/09/18 08:19 Dose: 50 mls/hr Insulin Human Regular (Novolin R) 0 unit SC ACHS [facility]; Protocol Last Admin: 07/09/18 08:34 Dose: 8 units Metoprolol Succinate (Toprol Xl) 50 mg PO DAILY [facility] Pantoprazole Sodium (Protonix Inj) 40 mg IVP DAILY [facility] Last Admin: 07/09/18 10:54 Dose: 40 mg Prednisone (Prednisone Tab) 5 mg PO DAILY [facility] Rosuvastatin Calcium (Crestor) 5 mg PO HS [facility] Last Admin: 07/08/18 23:09 Dose: 5 mg Vitamin B Complex/Vit C/Folic Acid (Nephro-Douglas) 1 tab PO 0800 [facility] Physical Exam - Head Exam Head Exam: ATRAUMATIC - Eye Exam Eye Exam: Normal appearance - ENT Exam ENT Exam: Mucous Membranes Dry - Respiratory Exam Respiratory Exam: NORMAL BREATHING PATTERN - Cardiovascular Exam Cardiovascular Exam: +S1, +S2 - GI/Abdominal Exam GI & Abdominal Exam: Normal Bowel Sounds - Extremities Exam Extremities exam: Positive for: pedal edema - Neurological Exam Neurological exam: Altered - Psychiatric Exam Psychiatric exam: Flat Affect Results - Vital Signs Recent Vital Signs: Last Vital Signs Temp 98 F 07/09/18 08:00 Pulse 98 H 07/09/18 10:50 Resp 39 H 07/09/18 10:50 BP 115/63 07/09/18 10:07 Pulse Ox 97 07/09/18 08:50 - Labs Result Diagrams: 07/09/18 08:21 07/08/18 17:08 Labs: Laboratory Results - last 24 hr 07/08/18 07/08/18 07/08/18 17:08 17:08 17:10 WBC 13.5 H D RBC 2.61 L Hgb 7.4 L D Hct 21.9 L MCV 84.1 MCH 28.3 MCHC 33.6 RDW 14.8 H Plt Count 40 L MPV 10.9 Neut % (Auto) 95.1 H Lymph % (Auto) 1.3 L [place] % (Auto) 0.8 Eos % (Auto) 2.5 Baso % (Auto) 0.3 Neut # (Auto) 12.8 H Lymph # (Auto) 0.2 L [place] # (Auto) 0.1 Eos # (Auto) 0.3 Baso # (Auto) 0.0 Neutrophils % (Manual) 97 H Band Neutrophils % Lymphocytes % (Manual) 2 L Monocytes % (Manual) 1 Platelet Estimate Decreased L Large Platelets Hypochromasia (manual) Slight Poikilocytosis (manual Slight Anisocytosis (manual) Slight Microcytosis (manual) Slight [place] Cells Slight PT INR APTT Sodium 132 Potassium 3.4 L Chloride 89 L Carbon Dioxide 26 Anion Gap 21 H BUN 30 H Creatinine 2.3 H Est GFR ( Amer) 25 Est GFR (Non-Af Amer) 21 POC Glucose (mg/dL) 249 H Random Glucose 204 H D Lactic Acid Calcium 9.3 Phosphorus 3.0 Magnesium 1.9 Total Bilirubin 1.1 AST 42 H ALT 12 Alkaline Phosphatase 122 Troponin I 0.3340 H* Total Protein 5.1 L Albumin 3.1 L Globulin 2.0 L Albumin/Globulin Ratio 1.6 Blood Type Antibody Screen 07/08/18 07/08/18 07/08/18 20:14 23:06 23:13 WBC RBC Hgb Hct MCV MCH MCHC RDW Plt Count MPV Neut % (Auto) Lymph % (Auto) [place] % (Auto) Eos % (Auto) Baso % (Auto) Neut # (Auto) Lymph # (Auto) [place] # (Auto) Eos # (Auto) Baso # (Auto) Neutrophils % (Manual) Band Neutrophils % Lymphocytes % (Manual) Monocytes % (Manual) Platelet Estimate Large Platelets Hypochromasia (manual) Poikilocytosis (manual Anisocytosis (manual) Microcytosis (manual) [place] Cells PT 12.3 H INR 1.1 APTT 26 Sodium Potassium Chloride Carbon Dioxide Anion Gap BUN Creatinine Est GFR ( Amer) Est GFR (Non-Af Amer) POC Glucose (mg/dL) 267 H Random Glucose Lactic Acid 1.3 Calcium Phosphorus Magnesium Total Bilirubin AST ALT Alkaline Phosphatase Troponin I Total Protein Albumin Globulin Albumin/Globulin Ratio Blood Type Antibody Screen 07/08/18 07/09/18 07/09/18 23:16 08:21 08:21 WBC RBC Hgb Hct MCV MCH MCHC RDW Plt Count MPV Neut % (Auto) Lymph % (Auto) [place] % (Auto) Eos % (Auto) Baso % (Auto) Neut # (Auto) Lymph # (Auto) [place] # (Auto) Eos # (Auto) Baso # (Auto) Neutrophils % (Manual) Band Neutrophils % Lymphocytes % (Manual) Monocytes % (Manual) Platelet Estimate Large Platelets Hypochromasia (manual) Poikilocytosis (manual Anisocytosis (manual) Microcytosis (manual) [place] Cells PT 13.0 H INR 1.2 APTT Sodium Potassium Chloride Carbon Dioxide Anion Gap BUN Creatinine Est GFR ( Amer) Est GFR (Non-Af Amer) POC Glucose (mg/dL) Random Glucose Lactic Acid Calcium Phosphorus 5.8 H Magnesium 2.1 Total Bilirubin AST ALT Alkaline Phosphatase Troponin I Total Protein Albumin Globulin Albumin/Globulin Ratio Blood Type B POSITIVE Antibody Screen Negative 07/09/18 08:21 WBC 12.7 H RBC 2.76 L Hgb 7.9 L Hct 23.7 L MCV 85.8 MCH 28.5 MCHC 33.2 RDW 15.4 H Plt Count 22 L* D MPV 11.1 Neut % (Auto) 94.2 H Lymph % (Auto) 1.8 L [place] % (Auto) 1.1 Eos % (Auto) 2.6 Baso % (Auto) 0.3 Neut # (Auto) 12.0 H Lymph # (Auto) 0.2 L [place] # (Auto) 0.1 Eos # (Auto) 0.3 Baso # (Auto) 0.0 Neutrophils % (Manual) 86 H Band Neutrophils % 10 H Lymphocytes % (Manual) 2 L Monocytes % (Manual) 2 Platelet Estimate Markedly decreased L Large Platelets Present Hypochromasia (manual) Slight Poikilocytosis (manual Moderate Anisocytosis (manual) Slight Microcytosis (manual) [place] Cells Moderate PT INR APTT Sodium Potassium Chloride Carbon Dioxide Anion Gap BUN Creatinine Est GFR ( Amer) Est GFR (Non-Af Amer) POC Glucose (mg/dL) Random Glucose Lactic Acid Calcium Phosphorus Magnesium Total Bilirubin AST ALT Alkaline Phosphatase Troponin I Total Protein Albumin Globulin Albumin/Globulin Ratio Blood Type Antibody Screen Assessment & Plan (1) TTP (thrombotic thrombocytopenic purpura) Assessment and Plan: pt does not appear to be on tacrolimus or plavix noted intracranial hemmorhage 2U FFP and 1 bag platelets to be transfused plasma exchange one plasma volume with 3000ml FFP once daily okay to use dialysis catheter per nephrology for plasma exchange Thank you for this interesting consult. Status: Acute
--- NOTE | 2018-07-09 12:54 | CATH ---
PROCEDURE: Date of procedure: 07/09/2018 Procedure: 1. Placement of a right arm PICC with ultrasound and fluoroscopic guidance, 2. PICC tip confirmation with spot radiograph and is in the superior vena cava Medications: 3cc 1 percent lidocaine Total Fluoro time: 5 seconds Radiation: 0.40 MGy EBL: 2 cc HISTORY: Infection requiring long-term IV antibiotics poor venous access, thrombocytopenia TECHNIQUE: Following informed consent and procedure time-out, the patient was placed supine on the interventional table and the right arm prepped and draped in the usual sterile fashion. Ultrasound showed a patent and compressible right brachial vein. After the skin was anesthetized with lidocaine, the brachial vein was accessed with micro micropuncture technique using ultrasound guidance. A guidewire was then advanced under fluoroscopic guidance into the superior vena cava. The length of the dual lumen 5 [place] PICC was trimmed to 30 centimeters and advanced through a peel-away sheath. The PICC was position with tip of PICC confirm a spot radiograph the superior vena cava. The PICC was secured to the patient's skin. The PICC was flushed. A biopatch and sterile dressing was applied. IMPRESSION: Placement of a dual-lumen 5 [place] PICC trimmed to 30 centimeters via right brachial vein. The tip of the PICC is confirmed with spot radiograph and is in the superior vena cava.
--- NOTE | 2018-07-09 13:30 | CP.CCUPN ---
<Charles Maki - Last Filed: 07/09/18 13:52> CCU Subjective - Physician Review Events Since Last Encounter (Free Text): 07/09/18 14:09 PGY-1 Critical Care Progress Note for Dr. Bowden Patient seen and examined at bedside. No acute events overnight. Patient breathing spontaneously on room air. ROS unable to be obtained. Will continue to monitor. CCU Objective - Vital Signs / Intake & Output Vital Signs (Last 4 hours): Vital Signs Temp Pulse Resp BP Pulse Ox 07/09/18 12:40 96 H 37 H 100 07/09/18 12:37 98 H 38 H 140/77 99 07/09/18 12:30 97 H 37 H 100 07/09/18 12:22 97 H 34 H 134/75 100 07/09/18 12:20 99 H 21 97 07/09/18 12:12 100 H 26 H 132/77 98 07/09/18 12:10 100 H 40 H 97 07/09/18 12:07 100 H 41 H 142/78 98 07/09/18 12:00 98.2 F 103 H 36 H 142/78 99 07/09/18 11:52 99 H 37 H 134/74 95 07/09/18 11:50 101 H 36 H 94 L 07/09/18 11:49 100 H 35 H 146/82 94 L 07/09/18 11:40 96 H 38 H 89 L 07/09/18 11:30 97 H 37 H 99 07/09/18 11:20 97 H 34 H 07/09/18 11:10 99 H 34 H 07/09/18 11:07 100 H 40 H 125/68 07/09/18 11:00 99 H 39 H 07/09/18 10:50 98 H 39 H 07/09/18 10:40 100 H 38 H 07/09/18 10:30 101 H 39 H 07/09/18 10:20 102 H 39 H 07/09/18 10:10 104 H 38 H 07/09/18 10:07 104 H 38 H 115/63 07/09/18 10:00 107 H 42 H 07/09/18 09:55 110 H 22 118/76 07/09/18 09:50 114 H 23 07/09/18 09:49 114 H 17 Intake and Output (Last 8hrs): Intake & Output 07/08/18 07/09/18 07/09/18 22:59 06:59 14:59 Intake Total 417 250 Balance 417 250 Weight 106 lb 11.2 oz 120 lb 13.013 oz Intake: Intake, IV Amount 40 250 right arm PICC 200 rt upper arm 40 50 Oral 100 0 Blood Product 227 Other 50 - Physical Exam Head: Positive for: Atraumatic, Normocephalic Pupils: Positive for: PERRL Extroacular Muscles: Positive for: EOMI Mouth: Positive for: Moist Mucous Membranes Cardiovascular: Positive for: Regular Rate and Rhythm, Normal S1, S2 Abdomen: Negative for: Tenderness, Distention Neurological: Positive for: Other (Patient responds to pain, responding to visual cues. Making sounds but generally nonverbal.). Negative for: GCS=15 - Medications Active Medications: Active Medications Generic Name Dose Route Start Last Admin Trade Name Freq PRN Reason Stop Dose Admin Acetaminophen 650 mg 07/08/18 22:21 Tylenol 325mg Tab PO Q6 PRN Fever >100.4 F Cinacalcet 60 mg 07/09/18 18:00 Sensipar PO QPM JUAN M Dextrose 0 ml 07/08/18 22:26 Dextrose 50% Inj IV STAT PRN Hypoglycemia Protocol Protocol Dextrose 0 gm 07/08/18 22:26 Glutose 15 PO ONCE PRN Hypoglycemia Protocol Protocol Epoetin Jose Ramon 10,000 unit 07/10/18 09:00 Procrit IV MWF [facility] Fluoxetine HCl 20 mg 07/09/18 10:00 07/09/18 12:53 Prozac PO Not Given DAILY JUAN M Glucagon 0 mg 07/08/18 22:26 Glucagen Diagnostic Kit IM STAT PRN Hypoglycemia Protocol Protocol Dextrose 1,000 mls @ 0 mls/hr 07/08/18 22:26 Dextrose 5% In Water 1000 Ml IV .Q0M PRN Hypoglycemia Protocol Protocol Per Protocol Piperacillin Sod/Tazobactam Sod 2.25 gm in 50 mls @ 50 mls/hr 07/08/18 23:00 07/09/18 08:19 Zosyn 2.25 Gm Iv Premix IVPB 50 mls/hr Q8H JUAN M Administration Insulin Human Regular 0 unit 07/09/18 07:30 07/09/18 12:33 Novolin R SC 3 units ACHS JUAN M Administration Protocol Metoprolol Succinate 50 mg 07/10/18 10:00 Toprol Xl PO DAILY JUAN M Pantoprazole Sodium 40 mg 07/09/18 10:00 07/09/18 10:54 Protonix Inj IVP 40 mg DAILY JUAN M Administration Prednisone 5 mg 07/09/18 10:00 07/09/18 12:53 Prednisone Tab PO Not Given DAILY JUAN M Rosuvastatin Calcium 5 mg 07/08/18 22:30 07/08/18 23:09 Crestor PO 5 mg HS JUAN M Administration Vitamin B Complex/Vit C/Folic Acid 1 tab 07/10/18 08:00 Nephro-Douglas PO 0800 [facility] - Patient Studies Lab Studies: Lab Studies 07/09/18 07/09/18 07/09/18 Range/Units 08:21 08:21 08:21 WBC 12.7 H (4.8-10.8) K/uL RBC 2.76 L (3.80-5.20) Mil/uL Hgb 7.9 L (11.0-16.0) g/dL Hct 23.7 L (34.0-47.0) % MCV 85.8 (81.0-99.0) fL MCH 28.5 (27.0-31.0) pg MCHC 33.2 (33.0-37.0) g/dL RDW 15.4 H (11.5-14.5) % Plt Count 22 L* D (130-400) K/uL MPV 11.1 (7.2-11.7) fL Neut % (Auto) 94.2 H (50.0-75.0) % Lymph % (Auto) 1.8 L (20.0-40.0) % [place] % (Auto) 1.1 (0.0-10.0) % Eos % (Auto) 2.6 (0.0-4.0) % Baso % (Auto) 0.3 (0.0-2.0) % Neut # (Auto) 12.0 H (1.8-7.0) K/uL Lymph # (Auto) 0.2 L (1.0-4.3) K/uL [place] # (Auto) 0.1 (0.0-0.8) K/uL Eos # (Auto) 0.3 (0.0-0.7) K/uL Baso # (Auto) 0.0 (0.0-0.2) K/uL Neutrophils % (Manual) 86 H (50-75) % Band Neutrophils % 10 H (0-2) % Lymphocytes % (Manual) 2 L (20-40) % Monocytes % (Manual) 2 (0-10) % Platelet Estimate Markedly decreased L (NORMAL) Large Platelets Present Hypochromasia (manual) Slight Poikilocytosis (manual Moderate Anisocytosis (manual) Slight Microcytosis (manual) Lenny Cells Moderate PT 13.0 H (9.7-12.2) SECONDS INR 1.2 APTT (21-34) SECONDS Sodium (132-148) mmol/L Potassium (3.6-5.2) mmol/L Chloride (98-107) mmol/L Carbon Dioxide (22-30) mmol/L Anion Gap (10-20) BUN (7-17) mg/dL Creatinine (0.7-1.2) mg/dL Est GFR ( Amer) Est GFR (Non-Af Amer) POC Glucose (mg/dL) (65-110) mg/dL Random Glucose (65-105) mg/dL Lactic Acid (0.7-2.1) mmol/L Calcium (8.6-10.4) mg/dl Phosphorus 5.8 H (2.5-4.5) mg/dL Magnesium 2.1 (1.6-2.3) mg/dL Total Bilirubin (0.2-1.3) mg/dL AST (14-36) U/L ALT (9-52) U/L Alkaline Phosphatase (38-126) U/L Troponin I (0.00-0.120) ng/mL Total Protein (6.3-8.3) g/dL Albumin (3.5-5.0) g/dL Globulin (2.2-3.9) gm/dL Albumin/Globulin Ratio (1.0-2.1) Blood Type Antibody Screen 07/08/18 07/08/18 07/08/18 Range/Units 23:16 23:13 23:06 WBC (4.8-10.8) K/uL RBC (3.80-5.20) Mil/uL Hgb (11.0-16.0) g/dL Hct (34.0-47.0) % MCV (81.0-99.0) fL MCH (27.0-31.0) pg MCHC (33.0-37.0) g/dL RDW (11.5-14.5) % Plt Count (130-400) K/uL MPV (7.2-11.7) fL Neut % (Auto) (50.0-75.0) % Lymph % (Auto) (20.0-40.0) % [place] % (Auto) (0.0-10.0) % Eos % (Auto) (0.0-4.0) % Baso % (Auto) (0.0-2.0) % Neut # (Auto) (1.8-7.0) K/uL Lymph # (Auto) (1.0-4.3) K/uL [place] # (Auto) (0.0-0.8) K/uL Eos # (Auto) (0.0-0.7) K/uL Baso # (Auto) (0.0-0.2) K/uL Neutrophils % (Manual) (50-75) % Band Neutrophils % (0-2) % Lymphocytes % (Manual) (20-40) % Monocytes % (Manual) (0-10) % Platelet Estimate (NORMAL) Large Platelets Hypochromasia (manual) Poikilocytosis (manual Anisocytosis (manual) Microcytosis (manual) [place] Cells PT (9.7-12.2) SECONDS INR APTT (21-34) SECONDS Sodium (132-148) mmol/L Potassium (3.6-5.2) mmol/L Chloride (98-107) mmol/L Carbon Dioxide (22-30) mmol/L Anion Gap (10-20) BUN (7-17) mg/dL Creatinine (0.7-1.2) mg/dL Est GFR ( Amer) Est GFR (Non-Af Amer) POC Glucose (mg/dL) 267 H (65-110) mg/dL Random Glucose (65-105) mg/dL Lactic Acid 1.3 (0.7-2.1) mmol/L Calcium (8.6-10.4) mg/dl Phosphorus (2.5-4.5) mg/dL Magnesium (1.6-2.3) mg/dL Total Bilirubin (0.2-1.3) mg/dL AST (14-36) U/L ALT (9-52) U/L Alkaline Phosphatase (38-126) U/L Troponin I (0.00-0.120) ng/mL Total Protein (6.3-8.3) g/dL Albumin (3.5-5.0) g/dL Globulin (2.2-3.9) gm/dL Albumin/Globulin Ratio (1.0-2.1) Blood Type B POSITIVE Antibody Screen Negative 07/08/18 07/08/18 07/08/18 Range/Units 20:14 17:10 17:08 WBC (4.8-10.8) K/uL RBC (3.80-5.20) Mil/uL Hgb (11.0-16.0) g/dL Hct (34.0-47.0) % MCV (81.0-99.0) fL MCH (27.0-31.0) pg MCHC (33.0-37.0) g/dL RDW (11.5-14.5) % Plt Count (130-400) K/uL MPV (7.2-11.7) fL Neut % (Auto) (50.0-75.0) % Lymph % (Auto) (20.0-40.0) % [place] % (Auto) (0.0-10.0) % Eos % (Auto) (0.0-4.0) % Baso % (Auto) (0.0-2.0) % Neut # (Auto) (1.8-7.0) K/uL Lymph # (Auto) (1.0-4.3) K/uL [place] # (Auto) (0.0-0.8) K/uL Eos # (Auto) (0.0-0.7) K/uL Baso # (Auto) (0.0-0.2) K/uL Neutrophils % (Manual) (50-75) % Band Neutrophils % (0-2) % Lymphocytes % (Manual) (20-40) % Monocytes % (Manual) (0-10) % Platelet Estimate (NORMAL) Large Platelets Hypochromasia (manual) Poikilocytosis (manual Anisocytosis (manual) Microcytosis (manual) [place]enny Cells PT 12.3 H (9.7-12.2) SECONDS INR 1.1 APTT 26 (21-34) SECONDS Sodium 132 (132-148) mmol/L Potassium 3.4 L (3.6-5.2) mmol/L Chloride 89 L (98-107) mmol/L Carbon Dioxide 26 (22-30) mmol/L Anion Gap 21 H (10-20) BUN 30 H (7-17) mg/dL Creatinine 2.3 H (0.7-1.2) mg/dL Est GFR ( Amer) 25 Est GFR (Non-Af Amer) 21 POC Glucose (mg/dL) 249 H (65-110) mg/dL Random Glucose 204 H D (65-105) mg/dL Lactic Acid (0.7-2.1) mmol/L Calcium 9.3 (8.6-10.4) mg/dl Phosphorus 3.0 (2.5-4.5) mg/dL Magnesium 1.9 (1.6-2.3) mg/dL Total Bilirubin 1.1 (0.2-1.3) mg/dL AST 42 H (14-36) U/L ALT 12 (9-52) U/L Alkaline Phosphatase 122 (38-126) U/L Troponin I 0.3340 H* (0.00-0.120) ng/mL Total Protein 5.1 L (6.3-8.3) g/dL Albumin 3.1 L (3.5-5.0) g/dL Globulin 2.0 L (2.2-3.9) gm/dL Albumin/Globulin Ratio 1.6 (1.0-2.1) Blood Type Antibody Screen 07/08/18 Range/Units 17:08 WBC 13.5 H D (4.8-10.8) K/uL RBC 2.61 L (3.80-5.20) Mil/uL Hgb 7.4 L D (11.0-16.0) g/dL Hct 21.9 L (34.0-47.0) % MCV 84.1 (81.0-99.0) fL MCH 28.3 (27.0-31.0) pg MCHC 33.6 (33.0-37.0) g/dL RDW 14.8 H (11.5-14.5) % Plt Count 40 L (130-400) K/uL MPV 10.9 (7.2-11.7) fL Neut % (Auto) 95.1 H (50.0-75.0) % Lymph % (Auto) 1.3 L (20.0-40.0) % [place] % (Auto) 0.8 (0.0-10.0) % Eos % (Auto) 2.5 (0.0-4.0) % Baso % (Auto) 0.3 (0.0-2.0) % Neut # (Auto) 12.8 H (1.8-7.0) K/uL Lymph # (Auto) 0.2 L (1.0-4.3) K/uL [place] # (Auto) 0.1 (0.0-0.8) K/uL Eos # (Auto) 0.3 (0.0-0.7) K/uL Baso # (Auto) 0.0 (0.0-0.2) K/uL Neutrophils % (Manual) 97 H (50-75) % Band Neutrophils % (0-2) % Lymphocytes % (Manual) 2 L (20-40) % Monocytes % (Manual) 1 (0-10) % Platelet Estimate Decreased L (NORMAL) Large Platelets Hypochromasia (manual) Slight Poikilocytosis (manual Slight Anisocytosis (manual) Slight Microcytosis (manual) Slight [place]enny Cells Slight PT (9.7-12.2) SECONDS INR APTT (21-34) SECONDS Sodium (132-148) mmol/L Potassium (3.6-5.2) mmol/L Chloride (98-107) mmol/L Carbon Dioxide (22-30) mmol/L Anion Gap (10-20) BUN (7-17) mg/dL Creatinine (0.7-1.2) mg/dL Est GFR ( Amer) Est GFR (Non-Af Amer) POC Glucose (mg/dL) (65-110) mg/dL Random Glucose (65-105) mg/dL Lactic Acid (0.7-2.1) mmol/L Calcium (8.6-10.4) mg/dl Phosphorus (2.5-4.5) mg/dL Magnesium (1.6-2.3) mg/dL Total Bilirubin (0.2-1.3) mg/dL AST (14-36) U/L ALT (9-52) U/L Alkaline Phosphatase (38-126) U/L Troponin I (0.00-0.120) ng/mL Total Protein (6.3-8.3) g/dL Albumin (3.5-5.0) g/dL Globulin (2.2-3.9) gm/dL Albumin/Globulin Ratio (1.0-2.1) Blood Type Antibody Screen Laboratory Results - last 24 hr 07/08/18 07/08/18 07/08/18 17:08 17:08 17:10 WBC 13.5 H D RBC 2.61 L Hgb 7.4 L D Hct 21.9 L MCV 84.1 MCH 28.3 MCHC 33.6 RDW 14.8 H Plt Count 40 L MPV 10.9 Neut % (Auto) 95.1 H Lymph % (Auto) 1.3 L [place] % (Auto) 0.8 Eos % (Auto) 2.5 Baso % (Auto) 0.3 Neut # (Auto) 12.8 H Lymph # (Auto) 0.2 L [place] # (Auto) 0.1 Eos # (Auto) 0.3 Baso # (Auto) 0.0 Neutrophils % (Manual) 97 H Band Neutrophils % Lymphocytes % (Manual) 2 L Monocytes % (Manual) 1 Platelet Estimate Decreased L Large Platelets Hypochromasia (manual) Slight Poikilocytosis (manual Slight Anisocytosis (manual) Slight Microcytosis (manual) Slight [place]enny Cells Slight PT INR APTT Sodium 132 Potassium 3.4 L Chloride 89 L Carbon Dioxide 26 Anion Gap 21 H BUN 30 H Creatinine 2.3 H Est GFR ( Amer) 25 Est GFR (Non-Af Amer) 21 POC Glucose (mg/dL) 249 H Random Glucose 204 H D Lactic Acid Calcium 9.3 Phosphorus 3.0 Magnesium 1.9 Total Bilirubin 1.1 AST 42 H ALT 12 Alkaline Phosphatase 122 Troponin I 0.3340 H* Total Protein 5.1 L Albumin 3.1 L Globulin 2.0 L Albumin/Globulin Ratio 1.6 Blood Type Antibody Screen 07/08/18 07/08/18 07/08/18 20:14 23:06 23:13 WBC RBC Hgb Hct MCV MCH MCHC RDW Plt Count MPV Neut % (Auto) Lymph % (Auto) [place] % (Auto) Eos % (Auto) Baso % (Auto) Neut # (Auto) Lymph # (Auto) [place] # (Auto) Eos # (Auto) Baso # (Auto) Neutrophils % (Manual) Band Neutrophils % Lymphocytes % (Manual) Monocytes % (Manual) Platelet Estimate Large Platelets Hypochromasia (manual) Poikilocytosis (manual Anisocytosis (manual) Microcytosis (manual) [place] Cells PT 12.3 H INR 1.1 APTT 26 Sodium Potassium Chloride Carbon Dioxide Anion Gap BUN Creatinine Est GFR ( Amer) Est GFR (Non-Af Amer) POC Glucose (mg/dL) 267 H Random Glucose Lactic Acid 1.3 Calcium Phosphorus Magnesium Total Bilirubin AST ALT Alkaline Phosphatase Troponin I Total Protein Albumin Globulin Albumin/Globulin Ratio Blood Type Antibody Screen 07/08/18 07/09/18 07/09/18 23:16 08:21 08:21 WBC RBC Hgb Hct MCV MCH MCHC RDW Plt Count MPV Neut % (Auto) Lymph % (Auto) [place] % (Auto) Eos % (Auto) Baso % (Auto) Neut # (Auto) Lymph # (Auto) [place] # (Auto) Eos # (Auto) Baso # (Auto) Neutrophils % (Manual) Band Neutrophils % Lymphocytes % (Manual) Monocytes % (Manual) Platelet Estimate Large Platelets Hypochromasia (manual) Poikilocytosis (manual Anisocytosis (manual) Microcytosis (manual) [place] Cells PT 13.0 H INR 1.2 APTT Sodium Potassium Chloride Carbon Dioxide Anion Gap BUN Creatinine Est GFR ( Amer) Est GFR (Non-Af Amer) POC Glucose (mg/dL) Random Glucose Lactic Acid Calcium Phosphorus 5.8 H Magnesium 2.1 Total Bilirubin AST ALT Alkaline Phosphatase Troponin I Total Protein Albumin Globulin Albumin/Globulin Ratio Blood Type B POSITIVE Antibody Screen Negative 07/09/18 08:21 WBC 12.7 H RBC 2.76 L Hgb 7.9 L Hct 23.7 L MCV 85.8 MCH 28.5 MCHC 33.2 RDW 15.4 H Plt Count 22 L* D MPV 11.1 Neut % (Auto) 94.2 H Lymph % (Auto) 1.8 L [place] % (Auto) 1.1 Eos % (Auto) 2.6 Baso % (Auto) 0.3 Neut # (Auto) 12.0 H Lymph # (Auto) 0.2 L [place] # (Auto) 0.1 Eos # (Auto) 0.3 Baso # (Auto) 0.0 Neutrophils % (Manual) 86 H Band Neutrophils % 10 H Lymphocytes % (Manual) 2 L Monocytes % (Manual) 2 Platelet Estimate Markedly decreased L Large Platelets Present Hypochromasia (manual) Slight Poikilocytosis (manual Moderate Anisocytosis (manual) Slight Microcytosis (manual) [place] Cells Moderate PT INR APTT Sodium Potassium Chloride Carbon Dioxide Anion Gap BUN Creatinine Est GFR ( Amer) Est GFR (Non-Af Amer) POC Glucose (mg/dL) Random Glucose Lactic Acid Calcium Phosphorus Magnesium Total Bilirubin AST ALT Alkaline Phosphatase Troponin I Total Protein Albumin Globulin Albumin/Globulin Ratio Blood Type Antibody Screen Radiology Impressions: Radiology Impressions Chest X-Ray 07/08/18 16:46 IMPRESSION: No active disease. Satisfactory position of dialysis catheter new finding compared to the prior study. Head CT 07/08/18 16:46 IMPRESSION: 6 mm hyperdensity in the right frontal lobe worrisome for small intraparenchymal hemorrhage. Chronic nonspecific white matter changes. 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 Basal ganglia lacunar infarcts. Findings discussed with Dr. Caraballo on 07/08/18 at 5:[address] 07/09/18 08:32 IMPRESSION: Stable small right frontal parenchymal hemorrhage. Old right occipital infarct. Mild chronic periventricular white matter ischemic change. Vascular Nurse Procedure 07/09/18 09:13 IMPRESSION: EKG/Cardiology Studies: Cardiology / EKG Studies 07/08/18 18:52 EKG [ELECTROCARDIOGRAM] Stat Comment: Mode Of Transportation: Reason For Exam: chest pain Fingerstick Blood Sugar Results: 236 Review of Systems - Review of Systems All systems: reviewed and no additional remarkable complaints except Critical Care Progress Note - Nutrition Nutrition: Nutrition Category Date Time Status Renal Diet [DIET] Diets 07/09/18 Breakfast Active Assessment/Plan - Assessment and Plan (Free Text) Assessment: 72 y/o male with DM,HTN,ESRD on HD,dementia presenting with Altered Mental status found to have acute R frontal lobe ICH. Neuro R frontal lobe ICH on CT head -Repeat CT head shows stable bleed -Neurosurgery consulted, Dr. Joe --No surgical intervention noted at this time -Monitor in ICU -Avoid pharmacologic AC Cardio -Elevated troponins suspect 2/2 renal insufficiency -EKG normal sinus, No acute ST changes -Echo - f/u -Daily labs Renal -ESRD on HD -Elevated trops ML 2/2 renal insuficiency Heme Thrombocytopenia 2/2 TTP -Heme/onc consulted, Dr. Cruz -Repeat platelet count 22 this morning -F/u peripheral smeear -Additional FFP 1U being transfused now -Patient consented for plasmapharesis treatment today Endo DM -ISS -Monitor accuchecks ACHS -hypoglycemia protocol Assessment and plan d/w Dr. Kal Maki, PGY-1 <Rodney Bowden - Last Filed: 07/09/18 18:34> CCU Subjective - Physician Review Critical Care Time Spent (in minutes): 50 CCU Objective - Vital Signs / Intake & Output Vital Signs (Last 4 hours): Vital Signs Temp Pulse Resp BP Pulse Ox 07/09/18 18:03 81 25 H 130/76 100 07/09/18 18:00 79 29 H 100 07/09/18 17:53 83 36 H 143/81 100 07/09/18 17:50 83 31 H 100 07/09/18 17:43 83 32 H 139/73 100 07/09/18 17:40 88 24 100 07/09/18 17:33 83 38 H 139/76 100 07/09/18 17:30 84 38 H 100 07/09/18 17:22 86 28 H 131/74 100 07/09/18 17:21 88 34 H 100 07/09/18 17:20 89 30 H 100 07/09/18 17:10 89 35 H 100 07/09/18 17:07 90 29 H 147/76 100 07/09/18 17:00 92 H 36 H 100 07/09/18 16:52 96 H 40 H 161/87 H 100 07/09/18 16:50 92 H 27 H 100 07/09/18 16:40 85 37 H 98 07/09/18 16:37 88 37 H 157/78 H 99 07/09/18 16:30 83 31 H 99 07/09/18 16:22 88 33 H 166/76 H 99 07/09/18 16:20 86 35 H 98 07/09/18 16:10 86 25 H 100 07/09/18 16:07 85 34 H 167/80 H 100 07/09/18 16:00 98.4 F 90 31 H 98 07/09/18 15:52 88 29 H 156/80 H 99 07/09/18 15:50 89 36 H 99 07/09/18 15:40 87 26 H 100 07/09/18 15:37 91 H 23 158/80 H 100 07/09/18 15:30 87 29 H 100 07/09/18 15:22 91 H 33 H 149/79 100 07/09/18 15:20 90 33 H 99 07/09/18 15:13 90 27 H 147/83 100 07/09/18 15:10 90 29 H 100 07/09/18 15:07 86 18 146/78 100 07/09/18 15:00 105 H 21 100 07/09/18 14:52 94 H 39 H 155/69 H 83 L 07/09/18 14:50 93 H 33 H 07/09/18 14:40 92 H 26 H 90 L 07/09/18 14:37 92 H 31 H 141/74 88 L 07/09/18 14:30 93 H 14 91 L 07/09/18 14:22 95 H 8 L 133/69 96 07/09/18 14:20 97 H 16 95 Intake and Output (Last 8hrs): Intake & Output 07/09/18 07/09/18 07/09/18 06:59 14:59 22:59 Intake Total 417 713 0 Balance 417 713 0 Weight 120 lb 13.013 oz Intake: Intake, IV Amount 40 713 right arm PICC 663 rt upper arm 40 50 Oral 100 0 0 Blood Product 227 Other 50 - Medications Active Medications: Active Medications Generic Name Dose Route Start Last Admin Trade Name Freq PRN Reason Stop Dose Admin Acetaminophen 650 mg 07/08/18 22:21 Tylenol 325mg Tab PO Q6 PRN Fever >100.4 F Albuterol/Ipratropium 3 ml 07/09/18 20:00 Duoneb 3 Mg/0.5 Mg (3 Ml) Ud INH RQ4 JUAN M Cinacalcet 60 mg 07/09/18 18:00 07/09/18 18:12 Sensipar PO Not Given QPM JUAN M Dextrose 0 ml 07/08/18 22:26 Dextrose 50% Inj IV STAT PRN Hypoglycemia Protocol Protocol Dextrose 0 gm 07/08/18 22:26 Glutose 15 PO ONCE PRN Hypoglycemia Protocol Protocol Epoetin Jose Ramon 10,000 unit 07/10/18 09:00 Procrit IV MWF [facility] Fluoxetine HCl 20 mg 07/09/18 10:00 07/09/18 12:53 Prozac PO Not Given DAILY JUAN M Glucagon 0 mg 07/08/18 22:26 Glucagen Diagnostic Kit IM STAT PRN Hypoglycemia Protocol Protocol Dextrose 1,000 mls @ 0 mls/hr 07/08/18 22:26 Dextrose 5% In Water 1000 Ml IV .Q0M PRN Hypoglycemia Protocol Protocol Per Protocol Piperacillin Sod/Tazobactam Sod 2.25 gm in 50 mls @ 50 mls/hr 07/08/18 23:00 07/09/18 15:00 Zosyn 2.25 Gm Iv Premix IVPB 50 mls/hr Q8H JUAN M Administration Acyclovir 500 mg/ Sodium 100 mls @ 100 mls/hr 07/09/18 18:15 Chloride IV Q24H JUAN M Protocol Insulin Human Regular 0 unit 07/09/18 07:30 07/09/18 16:30 Novolin R SC 3 units ACHS JUAN M Administration Protocol Metoprolol Succinate 50 mg 07/10/18 10:00 Toprol Xl PO DAILY JUAN M Pantoprazole Sodium 40 mg 07/09/18 10:00 07/09/18 10:54 Protonix Inj IVP 40 mg DAILY JUAN M Administration Prednisone 5 mg 07/09/18 10:00 07/09/18 12:53 Prednisone Tab PO Not Given DAILY [facility] Rosuvastatin Calcium 5 mg 07/08/18 22:30 07/08/18 23:09 Crestor PO 5 mg HS JUAN M Administration Vitamin B Complex/Vit C/Folic Acid 1 tab 07/10/18 08:00 Nephro-[place] PO 0800 JUAN M - Patient Studies Lab Studies: Microbiology Studies 07/09/18 06:23 Blood Culture - Preliminary Blood Gram Positive Cocci Gram Stain - Final 07/09/18 06:23 Blood Culture - Preliminary Blood Gram Positive Cocci Gram Stain - Final Lab Studies 07/09/18 07/09/18 07/09/18 Range/Units 08:21 08:21 08:21 WBC 12.7 H (4.8-10.8) K/uL RBC 2.76 L (3.80-5.20) Mil/uL Hgb 7.9 L (11.0-16.0) g/dL Hct 23.7 L (34.0-47.0) % MCV 85.8 (81.0-99.0) fL MCH 28.5 (27.0-31.0) pg MCHC 33.2 (33.0-37.0) g/dL RDW 15.4 H (11.5-14.5) % Plt Count 22 L* D (130-400) K/uL MPV 11.1 (7.2-11.7) fL Neut % (Auto) 94.2 H (50.0-75.0) % Lymph % (Auto) 1.8 L (20.0-40.0) % [place] % (Auto) 1.1 (0.0-10.0) % Eos % (Auto) 2.6 (0.0-4.0) % Baso % (Auto) 0.3 (0.0-2.0) % Neut # (Auto) 12.0 H (1.8-7.0) K/uL Lymph # (Auto) 0.2 L (1.0-4.3) K/uL [place] # (Auto) 0.1 (0.0-0.8) K/uL Eos # (Auto) 0.3 (0.0-0.7) K/uL Baso # (Auto) 0.0 (0.0-0.2) K/uL Neutrophils % (Manual) 86 H (50-75) % Band Neutrophils % 10 H (0-2) % Lymphocytes % (Manual) 2 L (20-40) % Monocytes % (Manual) 2 (0-10) % Platelet Estimate Markedly decreased L (NORMAL) Large Platelets Present Hypochromasia (manual) Slight Poikilocytosis (manual Moderate Anisocytosis (manual) Slight [place] Cells Moderate PT 13.0 H (9.7-12.2) SECONDS INR 1.2 APTT (21-34) SECONDS POC Glucose (mg/dL) (65-110) mg/dL Lactic Acid (0.7-2.1) mmol/L Phosphorus 5.8 H (2.5-4.5) mg/dL Magnesium 2.1 (1.6-2.3) mg/dL Blood Type Antibody Screen 07/08/18 07/08/18 07/08/18 Range/Units 23:16 23:13 23:06 WBC (4.8-10.8) K/uL RBC (3.80-5.20) Mil/uL Hgb (11.0-16.0) g/dL Hct (34.0-47.0) % MCV (81.0-99.0) fL MCH (27.0-31.0) pg MCHC (33.0-37.0) g/dL RDW (11.5-14.5) % Plt Count (130-400) K/uL MPV (7.2-11.7) fL Neut % (Auto) (50.0-75.0) % Lymph % (Auto) (20.0-40.0) % [place] % (Auto) (0.0-10.0) % Eos % (Auto) (0.0-4.0) % Baso % (Auto) (0.0-2.0) % Neut # (Auto) (1.8-7.0) K/uL Lymph # (Auto) (1.0-4.3) K/uL [place] # (Auto) (0.0-0.8) K/uL Eos # (Auto) (0.0-0.7) K/uL Baso # (Auto) (0.0-0.2) K/uL Neutrophils % (Manual) (50-75) % Band Neutrophils % (0-2) % Lymphocytes % (Manual) (20-40) % Monocytes % (Manual) (0-10) % Platelet Estimate (NORMAL) Large Platelets Hypochromasia (manual) Poikilocytosis (manual Anisocytosis (manual) [place] Cells PT (9.7-12.2) SECONDS INR APTT (21-34) SECONDS POC Glucose (mg/dL) 267 H (65-110) mg/dL Lactic Acid 1.3 (0.7-2.1) mmol/L Phosphorus (2.5-4.5) mg/dL Magnesium (1.6-2.3) mg/dL Blood Type B POSITIVE Antibody Screen Negative 07/08/18 Range/Units 20:14 WBC (4.8-10.8) K/uL RBC (3.80-5.20) Mil/uL Hgb (11.0-16.0) g/dL Hct (34.0-47.0) % MCV (81.0-99.0) fL MCH (27.0-31.0) pg MCHC (33.0-37.0) g/dL RDW (11.5-14.5) % Plt Count (130-400) K/uL MPV (7.2-11.7) fL Neut % (Auto) (50.0-75.0) % Lymph % (Auto) (20.0-40.0) % [place] % (Auto) (0.0-10.0) % Eos % (Auto) (0.0-4.0) % Baso % (Auto) (0.0-2.0) % Neut # (Auto) (1.8-7.0) K/uL Lymph # (Auto) (1.0-4.3) K/uL [place] # (Auto) (0.0-0.8) K/uL Eos # (Auto) (0.0-0.7) K/uL Baso # (Auto) (0.0-0.2) K/uL Neutrophils % (Manual) (50-75) % Band Neutrophils % (0-2) % Lymphocytes % (Manual) (20-40) % Monocytes % (Manual) (0-10) % Platelet Estimate (NORMAL) Large Platelets Hypochromasia (manual) Poikilocytosis (manual Anisocytosis (manual) [place] Cells PT 12.3 H (9.7-12.2) SECONDS INR 1.1 APTT 26 (21-34) SECONDS POC Glucose (mg/dL) (65-110) mg/dL Lactic Acid (0.7-2.1) mmol/L Phosphorus (2.5-4.5) mg/dL Magnesium (1.6-2.3) mg/dL Blood Type Antibody Screen Laboratory Results - last 24 hr 07/08/18 07/08/18 07/08/18 20:14 23:06 23:13 WBC RBC Hgb Hct MCV MCH MCHC RDW Plt Count MPV Neut % (Auto) Lymph % (Auto) [place] % (Auto) Eos % (Auto) Baso % (Auto) Neut # (Auto) Lymph # (Auto) [place] # (Auto) Eos # (Auto) Baso # (Auto) Neutrophils % (Manual) Band Neutrophils % Lymphocytes % (Manual) Monocytes % (Manual) Platelet Estimate Large Platelets Hypochromasia (manual) Poikilocytosis (manual Anisocytosis (manual) [place] Cells PT 12.3 H INR 1.1 APTT 26 POC Glucose (mg/dL) 267 H Lactic Acid 1.3 Phosphorus Magnesium Blood Type Antibody Screen 07/08/18 07/09/18 07/09/18 23:16 08:21 08:21 WBC RBC Hgb Hct MCV MCH MCHC RDW Plt Count MPV Neut % (Auto) Lymph % (Auto) [place] % (Auto) Eos % (Auto) Baso % (Auto) Neut # (Auto) Lymph # (Auto) [place] # (Auto) Eos # (Auto) Baso # (Auto) Neutrophils % (Manual) Band Neutrophils % Lymphocytes % (Manual) Monocytes % (Manual) Platelet Estimate Large Platelets Hypochromasia (manual) Poikilocytosis (manual Anisocytosis (manual) [place] Cells PT 13.0 H INR 1.2 APTT POC Glucose (mg/dL) Lactic Acid Phosphorus 5.8 H Magnesium 2.1 Blood Type B POSITIVE Antibody Screen Negative 07/09/18 08:21 WBC 12.7 H RBC 2.76 L Hgb 7.9 L Hct 23.7 L MCV 85.8 MCH 28.5 MCHC 33.2 RDW 15.4 H Plt Count 22 L* D MPV 11.1 Neut % (Auto) 94.2 H Lymph % (Auto) 1.8 L [place] % (Auto) 1.1 Eos % (Auto) 2.6 Baso % (Auto) 0.3 Neut # (Auto) 12.0 H Lymph # (Auto) 0.2 L [place] # (Auto) 0.1 Eos # (Auto) 0.3 Baso # (Auto) 0.0 Neutrophils % (Manual) 86 H Band Neutrophils % 10 H Lymphocytes % (Manual) 2 L Monocytes % (Manual) 2 Platelet Estimate Markedly decreased L Large Platelets Present Hypochromasia (manual) Slight Poikilocytosis (manual Moderate Anisocytosis (manual) Slight [place] Cells Moderate PT INR APTT POC Glucose (mg/dL) Lactic Acid Phosphorus Magnesium Blood Type Antibody Screen Radiology Impressions: Radiology Impressions Head CT 07/09/18 08:32 IMPRESSION: Stable small right frontal parenchymal hemorrhage. Old right occipital infarct. Mild chronic periventricular white matter ischemic change. Vascular Nurse Procedure 07/09/18 09:13 IMPRESSION: EKG/Cardiology Studies: Cardiology / EKG Studies 07/08/18 18:52 EKG [ELECTROCARDIOGRAM] Stat Comment: Mode Of Transportation: Reason For Exam: chest pain Critical Care Progress Note - Nutrition Nutrition: Nutrition Category Date Time Status Renal Diet [DIET] Diets 07/09/18 Breakfast Active Attending/Attestation - Attestation I have personally seen and examined this patient.: Yes I have fully participated in the care of the patient.: Yes I have reviewed all pertinent clinical information: Yes Notes (Text): 07/09/18 18:19 Patient seen and examined in the intensive care unit. Case discussed with housestaff in the morning rounds. Repeat CAT scan of the head showed no change Seen by hematology and the plan is for plasmapheresis for TTP echocardiogram noted With right atrial thrombus No anticoagulation because of brain bleed Continue ICU monitoring Follow-up platelet count
[2018-07-09] MEDS ORDERED: DiphenhydrAMINE 50 mg/ml Inj IVP ONE (16:15)
[2018-07-09] MEDS ORDERED: SODIUM CHLORIDE 0.9% IV ONE (17:00)
[2018-07-09] MEDS ORDERED: CALCIUM GLUCONATE IV ONE (17:00)
[2018-07-09] MEDS ORDERED: SODIUM CHLORIDE 0.9% IV SCH (19:00)
[2018-07-09] MEDS ORDERED: ACYCLOVIR IV SCH (19:00)
--- NOTE | 2018-07-09 23:33 | CARD ---
APPROVED REPORT Date of service: 07/09/2018 EXAM: LIMITED Two-dimensional echocardiogram with Doppler and color Doppler. INDICATION NSTMI 2D DIMENSIONS LA Lrbtdf46 (18-58mL)LVEF (Cramer's)75.24 % Aortic Valve AoV Peak Avwulfkm804.4cm/[place] Peak GR.17mmHgAI P 1/2 Agmc854sf Mitral Valve MV E Podwcopz75.1cm/sMV A Ywnukyvv211.7cm/sE/A ratio0.6 TDI Lateral E' Peak V6.80cm/sMedial E' Peak V3.58cm/sE/Lateral E'10.2 E/Medial E'19.3 Tricuspid Valve TR Peak Aiyvrocp201ce/sTR Peak Gr.[id number] LEFT VENTRICLE The left ventricle is normal size. There is normal left ventricular wall thickness. The left ventricular function is normal. The left ventricular ejection fraction is within the normal range. There is normal LV segmental wall motion. Transmitral Doppler flow pattern is abnormal. RIGHT VENTRICLE The right ventricle is normal size. ATRIA The left atrium size is normal. A mass suggestive of myxoma is noted in the right atrium. AORTIC VALVE There is mild aortic regurgitation. MITRAL VALVE Mitral annular calcification is moderate. TRICUSPID VALVE There is moderate tricuspid regurgitation. <Conclusion> Technically limited study. Normal LV systolic function. Diastolic dysfunction. Normal chamber szie. Mild AR. Moderate TR. 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
[2018-07-10] MEDS: Albuterol-Ipratrop 3 mg / 0.5 (3 ml) UD INH SCH ×5 (00:38→16:52)
--- NOTE | 2018-07-10 05:54 | CP.PCM.CON ---
History of Present Illness - History of Present Illness History of Present Illness: Reason For Consultation: Elevated Troponin Ms. Palma is a 72 year old [place] female with a PMH of hypertension, diabetes, chronic kidney disease on hemodialysis MWF s/p kidney transplant 10 years ago, and dementia here today for acute change in speech and energy. She attended her regular hemodialysis session today. En route back to [facility], her escort noticed her speech start slurring and her overall demeanor depress. He noted R sided weakness that progressed to generalized weakness by the arrival back to [facility]. She was sent in by the physician at the senior care for evaluation. Per daughter, she has had a decreased appetite for the last two weeks. Due to lack of motivation in swallowing, she has been eating a lot less and become non compliant with her medications. Speech is unintelligible, but patient is able to respond to yes/no questioning appropriately. Complains of generalized weakness and pain. Denies chest pain, shortness of breath, headache, n/v/c/d. Complains of neck pain from chronic L sided rotation. Patient was recently discharged on 06/06/18 for BETH. She was transferred to [facility] where her transplant surgeon, Dr. Palacios, accepted her. It is unclear for how long she was there before being discharged to [facility]. PMH: HTN, DM, CKD on HD MWF s/p kidney transplant, dementia, herpes simplex Med: amlodipine 10mg po daily, Bacitracin for lower lip, Prozac 20mg po daily, Lasix 40mg po daily, metoprolol ER 50mg daily, mycophenylate 450mg po BID, ondensetron 4mg po q6 prn, prednisone 5mg po daily, Crestor 5mg po HS, sodium bicarb 1300mg po BID, Tylenol 650mg po q4 prn All: denies PSxHx: kidney transplant at [facility] 10 years ago, C/section 34 years ago FamHx: daughter - kidney stones. otherwise unknown SocHx: denies ever tobacco, alcohol, illicit drugs. 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[place]; retired upon arrival to the Daughter: Abby Palma [phone] Full Code Present on Admission - Present on Admission Any Indicators Present on Admission: No Review of Systems - Review of Systems Systems not reviewed;Unavailable: Altered Mental Status Meds Allergies/Adverse Reactions: Allergies Allergy/AdvReac Type Severity Reaction Status Date / Time enalapril Allergy Severe ANGIOEDEMA Verified 07/08/18 16:41 Physical Exam - Constitutional Appears: No Acute Distress, Cachectic, Chronically Ill - Head Exam Head Exam: ATRAUMATIC, NORMOCEPHALIC Additional comments: head chronically turned to L. moans when trying to center head. - Eye Exam Eye Exam: EOMI, PERRL Pupil Exam: NORMAL ACCOMODATION - ENT Exam ENT Exam: Mucous Membranes Dry - Neck Exam Neck exam: Negative for: Lymphadenopathy, Tenderness Additional comments: neck turned to L with hypertonic SCM - Respiratory Exam Respiratory Exam: Clear to Auscultation Bilateral, NORMAL BREATHING PATTERN. absent: Rales, Rhonchi, Wheezes - Cardiovascular Exam Cardiovascular Exam: Tachycardia, +S1, +S2. absent: JVD, Systolic Murmur - GI/Abdominal Exam GI & Abdominal Exam: Normal Bowel Sounds, Soft, Tenderness. absent: Distended, Guarding - Extremities Exam Extremities exam: Positive for: pedal pulses present Additional comments: IV access in R hand AVF on L arm, palpable thrill, audible bruit R chest cath for HD - Back Exam Back exam: absent: CVA tenderness (L), CVA tenderness (R) - Neurological Exam Neurological exam: Alert, Altered Additional comments: moves all 4 extremities mostly uncooperative with exam due to lack of understanding - Skin Skin Exam: Dry, Normal Color, Warm Assessment & Plan - Assessment and Plan (Free Text) Assessment: 72yo F PMH HTN, DM, CKD s/p renal transplant, ESRD on HD MWF, dementia admitted for NSTEMI and AMS. Plan: AMS CT Head without contrast (07/08): 6 mm hyperdensity in the right frontal lobe worrisome for small intraparenchymal hemorrhage. Chronic nonspecific white matter changes. 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 Basal ganglia lacunar infarcts. - f/u repeat CT Head with and without contrast - f/u coags - Zosyn 2.25g IVPB q8 (started 07/09) - f/u Blood Cx - Neurosurgery consulted: Dr. Diaz - help appreciated NSTEMI Trop 0.3340. EKG NSR@92 CXR (07/08): negative - f/u repeat Trop BETH on CKD s/p renal transplant ESRD on HD MWF Anemia of Chronic Disease BUN/Cr 30/2.3 OA. Baseline varies compared to previous admissions H/H 7.4/21.9 OA. Baseline on chart review in 10s. However, comparable to labs sent with patient from [facility] Per [facility] chart, patient receives 1u PRBC with HD. Unsure of if received unit during today's HD session. During previous admission, patient was told the transplanted kidney was starting to get rejected 1u FFP transfused in ICU - hold home mycophenolate - hold home prednisone - Nephro consulted: Dr. English - help appreciated Hypertension Patient and daughter admit that she's been noncompliant with home medications - hold home amlodipine, furosemide, and metoprolol - monitor vitals - restart as needed Diabetes Mellitus Hgb A1c (06/06): 6.4 - Accuchecks ACHS - ISS - hypoglycemia protocol - Crestor 5mg po HS Depression - home Prozac 20mg po daily PPx - DVT: SCDs, chemical AC CI 2/2 intraparenchymal hemorrhage - GI: Protonix 40mg IVP daily - Diet: Renal - IVF: NS@40 - home Tylenol 650mg PO q6 prn for fever or mild pain Patient with levated Troponin Hemodynamically stable Not a candidate for anticoagulation Will follow 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) - HEMATOLOGICAL/ONCOLOGICAL Hx Human Immunodeficiency Virus (HIV): No - INTEGUMENTARY Hx Dermatological Problems: No - MUSCULOSKELETAL/RHEUMATOLOGICAL Hx Falls: No - GASTROINTESTINAL Hx Gastrointestinal Disorders: No - GENITOURINARY/GYNECOLOGICAL Hx Sexually Transmitted Disorders: No - PSYCHIATRIC Hx Anxiety: Yes Hx Depression: Yes Hx Substance Use: No - SURGICAL HISTORY Hx Surgeries: Yes Hx Section: Yes Hx Kidney Transplant: Yes (right kidney 2009) - ANESTHESIA Hx Anesthesia: Yes Hx Anesthesia Reactions: No Meds Allergies/Adverse Reactions: Allergies Allergy/AdvReac Type Severity Reaction Status Date / Time enalapril Allergy Severe ANGIOEDEMA Verified 07/08/18 16:41 - Medications Medications: Current Medications Acetaminophen (Tylenol 325mg Tab) 650 mg PO Q6 PRN PRN Reason: Fever >100.4 F Albuterol/Ipratropium (Duoneb 3 Mg/0.5 Mg (3 Ml) Ud) 3 ml INH RQ4 [facility] Last Admin: 07/10/18 00:38 Dose: 3 ml Cinacalcet (Sensipar) 60 mg PO QPM [facility] Last Admin: 07/09/18 18:12 Dose: Not Given Dextrose (Dextrose 50% Inj) 0 ml IV STAT PRN; Protocol PRN Reason: Hypoglycemia Protocol Dextrose (Glutose 15) 0 gm PO ONCE PRN; Protocol PRN Reason: Hypoglycemia Protocol Epoetin Jose Ramon (Procrit) 10,000 unit IV MWF [facility] Fluoxetine HCl (Prozac) 20 mg PO DAILY [facility] Last Admin: 07/09/18 12:53 Dose: Not Given Glucagon (Glucagen Diagnostic Kit) 0 mg IM STAT PRN; Protocol PRN Reason: Hypoglycemia Protocol Dextrose (Dextrose 5% In Water 1000 Ml) 1,000 mls @ 0 mls/hr IV .Q0M PRN; Protocol PRN Reason: Hypoglycemia Protocol Piperacillin Sod/Tazobactam Sod (Zosyn 2.25 Gm Iv Premix) 2.25 gm in 50 mls @ 50 mls/hr IVPB Q8H [facility] Last Admin: 07/09/18 22:27 Dose: 50 mls/hr Acyclovir 275 mg/ Sodium (Chloride) 100 mls @ 100 mls/hr IV Q24H [facility]; Protocol Last Admin: 07/09/18 19:33 Dose: 100 mls/hr Insulin Human Regular (Novolin R) 0 unit SC ACHS [facility]; Protocol Last Admin: 07/09/18 22:00 Dose: Not Given Metoprolol Succinate (Toprol Xl) 50 mg PO DAILY [facility] Pantoprazole Sodium (Protonix Inj) 40 mg IVP DAILY [facility] Last Admin: 07/09/18 10:54 Dose: 40 mg Prednisone (Prednisone Tab) 5 mg PO DAILY [facility] Last Admin: 07/09/18 12:53 Dose: Not Given Rosuvastatin Calcium (Crestor) 5 mg PO HS [facility] Last Admin: 07/09/18 21:10 Dose: 5 mg Vitamin B Complex/Vit C/Folic Acid (Nephro-Douglas) 1 tab PO 0800 [facility] Results - Vital Signs Recent Vital Signs: Last Vital Signs Temp 100.8 F H 07/10/18 00:41 Pulse 96 H 07/10/18 04:30 Resp 31 H 07/10/18 04:30 BP 151/83 H 07/10/18 04:31 Pulse Ox 84 L 07/10/18 03:20 - Labs Result Diagrams: 07/09/18 08:21 07/08/18 17:08 Labs: Laboratory Results - last 24 hr 07/09/18 07/09/18 07/09/18 08:21 08:21 08:21 WBC 12.7 H RBC 2.76 L Hgb 7.9 L Hct 23.7 L MCV 85.8 MCH 28.5 MCHC 33.2 RDW 15.4 H Plt Count 22 L* D MPV 11.1 Neut % (Auto) 94.2 H Lymph % (Auto) 1.8 L [place] % (Auto) 1.1 Eos % (Auto) 2.6 Baso % (Auto) 0.3 Neut # (Auto) 12.0 H Lymph # (Auto) 0.2 L [place] # (Auto) 0.1 Eos # (Auto) 0.3 Baso # (Auto) 0.0 Neutrophils % (Manual) 86 H Band Neutrophils % 10 H Lymphocytes % (Manual) 2 L Monocytes % (Manual) 2 Platelet Estimate Markedly decreased L Large Platelets Present Hypochromasia (manual) Slight Poikilocytosis (manual Moderate Anisocytosis (manual) Slight [place] Cells Moderate PT 13.0 H INR 1.2 Phosphorus 5.8 H Magnesium 2.1
[2018-07-10 06:04] LABS: EOS # 0.1 K/uL (0.0-0.7); EOS % 0.8 % (0.0-4.0); LYMPH # 0.3 K/uL (1.0-4.3); LYMPH % 2.7 % (20.0-40.0); MEAN CORPUSCULAR HEMOGLOBIN 29.2 pg (27.0-31.0); MEAN CORPUSCULAR HGB CONC 33.9 g/dL (33.0-37.0); MEAN PLATELET VOLUME 11.3 fL (7.2-11.7); MONO # 0.4 K/uL (0.0-0.8); MONO % 4.2 % (0.0-10.0); NEUT # 9.7 K/uL (1.8-7.0); NEUT % 92.3 % (50.0-75.0); RBC 2.12 Mil/uL (3.80-5.20); RED CELL DISTRIBUTION WIDTH 15.4 % (11.5-14.5); WHITE BLOOD COUNT 10.5 K/uL (4.8-10.8)
[2018-07-10 06:13] LABS: INR 1.1; PROTHROMBIN TIME 11.5 SECONDS (9.7-12.2)
[2018-07-10 06:15] LABS: HEMOGLOBIN 6.2 g/dL (11.0-16.0)
[2018-07-10 06:16] LABS: PLATELET COUNT 27 K/uL (130-400)
[2018-07-10] MEDS: Piperacill/Tazo 2.25gm in Dex 2.25 GM/50 ML BAG IVPB SCH ×3 (06:18→18:01)
[2018-07-10 06:24] LABS: ALB/GLOB RATIO 1.5 (1.0-2.1); ALBUMIN 2.9 g/dL (3.5-5.0); CALCIUM 9.7 mg/dl (8.6-10.4)
[2018-07-10] MEDS: (Novolin R) Insulin Human Regular 100 units/ml vial SC SCH ×3 (07:58→17:14)
[2018-07-10] MEDS: Multivitamin Vitamin B Complex (Nephro-Vite) Tab PO SCH ×2 (08:00→08:30)
[2018-07-10 08:38] LABS: BANDS 5 % (0-2); LYMPHOCYTE 2 % (20-40); MONOCYTE 6 % (0-10); NEUTROPHIL 87 % (50-75); TOTAL CELLS COUNTED 100
[2018-07-10 08:39] LABS: ANISOCYTOSIS SLIGHT; PLATELET ESTIMATE MARKEDLY DECREASED (NORMAL); POIKILOCYTOSIS SLIGHT
[2018-07-10 08:40] LABS: HYPOCHROMIC MODERATE
[2018-07-10 08:41] LABS: BURR CELLS SLIGHT; OVALOCYTES SLIGHT; TARGET CELLS SLIGHT
[2018-07-10 08:42] LABS: SCHISTOCYTES SLIGHT
[2018-07-10] MEDS ORDERED: Epoetin Alfa 10,000 unit/ml Dialysis IV SCH (09:00)
--- NOTE | 2018-07-10 09:34 | CP.PCM.PN ---
Subjective - Date & Time of Evaluation Date of Evaluation: 07/10/18 Time of Evaluation: 09:33 - Subjective Subjective: seen and examined this morning. patient was awake and responsive. confused Noted screaming when ever we move her extremities or neck. patient has no fever,tachycardic and tachypnic BP 164/93,pulse 112,RR 34,sat 100% Objective - Vital Signs/Intake and Output Vital Signs (last 24 hours): Temp Pulse Resp BP Pulse Ox 97.1 F L 110 H 30 H 152/93 H 100 07/10/18 08:00 07/10/18 09:04 07/10/18 09:04 07/10/18 09:04 07/10/18 09:04 Intake and Output: 07/10/18 07/10/18 06:59 18:59 Intake Total 448 100 Balance 448 100 - Medications Medications: Current Medications Acetaminophen (Tylenol 325mg Tab) 650 mg PO Q6 PRN PRN Reason: Fever >100.4 F Albuterol/Ipratropium (Duoneb 3 Mg/0.5 Mg (3 Ml) Ud) 3 ml INH RQ4 [facility] Last Admin: 07/10/18 04:00 Dose: Not Given Cinacalcet (Sensipar) 60 mg PO QPM [facility] Last Admin: 07/09/18 18:12 Dose: Not Given Dextrose (Dextrose 50% Inj) 0 ml IV STAT PRN; Protocol PRN Reason: Hypoglycemia Protocol Dextrose (Glutose 15) 0 gm PO ONCE PRN; Protocol PRN Reason: Hypoglycemia Protocol Epoetin Jose Ramon (Procrit) 10,000 unit IV F [facility] Fluoxetine HCl (Prozac) 20 mg PO DAILY [facility] Last Admin: 07/09/18 12:53 Dose: Not Given Glucagon (Glucagen Diagnostic Kit) 0 mg IM STAT PRN; Protocol PRN Reason: Hypoglycemia Protocol Dextrose (Dextrose 5% In Water 1000 Ml) 1,000 mls @ 0 mls/hr IV .Q0M PRN; Protocol PRN Reason: Hypoglycemia Protocol Piperacillin Sod/Tazobactam Sod (Zosyn 2.25 Gm Iv Premix) 2.25 gm in 50 mls @ 50 mls/hr IVPB Q8H [facility] Last Admin: 07/10/18 06:18 Dose: 50 mls/hr Acyclovir 275 mg/ Sodium (Chloride) 100 mls @ 100 mls/hr IV Q24H [facility]; Protocol Last Admin: 07/09/18 19:33 Dose: 100 mls/hr Vancomycin HCl 0.75 gm/ Sodium (Chloride) 250 mls @ 166.7 mls/hr IVPB MWF@1000 JUAN M; Protocol Insulin Human Regular (Novolin R) 0 unit SC ACHS [facility]; Protocol Last Admin: 07/10/18 07:58 Dose: 6 units Metoprolol Succinate (Toprol Xl) 50 mg PO DAILY [facility] Pantoprazole Sodium (Protonix Inj) 40 mg IVP Q12 [facility] Prednisone (Prednisone Tab) 5 mg PO DAILY [facility] Last Admin: 07/09/18 12:53 Dose: Not Given Rosuvastatin Calcium (Crestor) 5 mg PO HS [facility] Last Admin: 07/09/18 21:10 Dose: 5 mg Vitamin B Complex/Vit C/Folic Acid (Nephro-Douglas) 1 tab PO 0800 [facility] Last Admin: 07/10/18 08:00 Dose: 1 tab - Labs Labs: 07/10/18 05:54 07/10/18 05:52 PT 11.5 SECONDS (9.7-12.2) 07/10/18 05:54 INR 1.1 07/10/18 05:54 APTT 26 SECONDS (21-34) 07/08/18 20:14 - Constitutional Appears: Confused, Chronically Ill - Head Exam Head Exam: ATRAUMATIC - Eye Exam Eye Exam: Normal appearance - ENT Exam ENT Exam: Mucous Membranes Moist - Neck Exam Neck Exam: Normal Inspection - Respiratory Exam Respiratory Exam: Clear to Ausculation Bilateral - Cardiovascular Exam Cardiovascular Exam: REGULAR RHYTHM - GI/Abdominal Exam GI & Abdominal Exam: Soft, Normal Bowel Sounds - Extremities Exam Extremities Exam: absent: Full ROM (pain) - Back Exam Back Exam: NORMAL INSPECTION - Neurological Exam Neurological Exam: Awake. absent: Oriented x3 - Psychiatric Exam Psychiatric exam: absent: Normal Mood - Skin Skin Exam: Dry Assessment and Plan - Assessment and Plan (Free Text) Assessment: Ms. Palma is a 72 year old [place] female with a PMH of hypertension, diabetes, chronic kidney disease on hemodialysis MWF s/p kidney transplant 10 years ago, and dementia here today for acute change in speech and energy noted after hemodialysis 07/08/18. Per daughter, she has had a decreased appetite for the last two weeks. Due to lack of motivation in swallowing, she has been eating a lot less and become non compliant with her medications. Speech is unintelligible, but patient is able to respond to yes/no questioning appropriately. Complains of generalized weakness and pain. Denies chest pain, shortness of breath, headache, n/v/c/d. Complains of neck pain from chronic L sided rotation. 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 also had TTP s/p plasmapharesis. pt mostly confused Plan: 1.Thrombotic thrombocytopenic purpura Patient has low platelets and intraparenchymal bleeding Her platelets are low,Hb dropped to 6. Transfuse PRBC plasma exchange as per Dr Anthony dao to use dialysis catheter per nephrology for plasma exchange patient has intraparenchymal bleeding 6mm,TTP repeat CT head shows no changes. Neurosurgery and neurologist was consulted Echo shows RA thrombus-avoid anticoagulation due to TTP patient has very poor prognosis d/s Dr Nelson 2.ESRD on HD,Kidney transplant rejection continue HD as per nephrology group she canot swallow ,stop oral prednisone and start on solu cortef, she was on myfortic,we will follow with nephrology recommendation d/w Dr English. surgery consult to change HD cath because of bacteremia 3.Bacteremia gram possitive cocci Vanco level is 15, Vanco 750mg during dialysis follow vanco level in the morning continue Acyclovir renal dose follow C/s 4.NSTMI Elevated troponin may be due to stress and renal failure Echo shows RA thrombus no anticoagulation due to bleeding, 5.HTN 6.DM-monitor sugar 7.Depression 8.Dementia with confusion 9.DVT prophy-Bleeding risk ,not on anticoag GI prophy-protonix Not able to swallow ,risk of aspiration Start on gentle hydration.d/w Dr English going to have dialysis in the morning Prognosis poor- Spoke to her Daughter Cayla Weems tat bedside. Discussed about medical problem and its poor prognosis She states that she understand her critical condition . Not decided about hospice care and Resuscitation
[2018-07-10] MEDS ORDERED: Metoprolol Succinate 50 mg XL Tab PO SCH (10:00)
[2018-07-10] MEDS: Metoprolol 1 mg/ml Inj IVP SCH ×2 (10:40→22:16)
--- NOTE | 2018-07-10 11:12 | CP.PCM.CON ---
History of Present Illness - History of Present Illness History of Present Illness: Neurology consult dictated. patient with intraparenchymal hemorrhage who has vacillating level of consciousness. Plan; 1. Repeat CT head 2. VEEG for [address] 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) - HEMATOLOGICAL/ONCOLOGICAL Hx Human Immunodeficiency Virus (HIV): No - INTEGUMENTARY Hx Dermatological Problems: No - MUSCULOSKELETAL/RHEUMATOLOGICAL Hx Falls: No - GASTROINTESTINAL Hx Gastrointestinal Disorders: No - GENITOURINARY/GYNECOLOGICAL Hx Sexually Transmitted Disorders: No - PSYCHIATRIC Hx Anxiety: Yes Hx Depression: Yes Hx Substance Use: No - SURGICAL HISTORY Hx Surgeries: Yes Hx Section: Yes Hx Kidney Transplant: Yes (right kidney 2009) - ANESTHESIA Hx Anesthesia: Yes Hx Anesthesia Reactions: No Meds Allergies/Adverse Reactions: Allergies Allergy/AdvReac Type Severity Reaction Status Date / Time enalapril Allergy Severe ANGIOEDEMA Verified 07/08/18 16:41 - Medications Medications: Current Medications Acetaminophen (Tylenol 325mg Tab) 650 mg PO Q6 PRN PRN Reason: Fever >100.4 F Acetaminophen (Tylenol 650 Mg Supp) 650 mg DC ONCE ONE Stop: 07/10/18 18:01 Albuterol/Ipratropium (Duoneb 3 Mg/0.5 Mg (3 Ml) Ud) 3 ml INH RQ4 [facility] Last Admin: 07/10/18 04:00 Dose: Not Given Cinacalcet (Sensipar) 60 mg PO QPM [facility] Last Admin: 07/09/18 18:12 Dose: Not Given Dextrose (Dextrose 50% Inj) 0 ml IV STAT PRN; Protocol PRN Reason: Hypoglycemia Protocol Dextrose (Glutose 15) 0 gm PO ONCE PRN; Protocol PRN Reason: Hypoglycemia Protocol Diphenhydramine HCl (Benadryl) 25 mg IVP ONCE ONE Stop: 07/10/18 18:01 Epoetin Jose Ramon (Procrit) 10,000 unit IV MWF [facility] Glucagon (Glucagen Diagnostic Kit) 0 mg IM STAT PRN; Protocol PRN Reason: Hypoglycemia Protocol Hydrocortisone Sodium Succinate (Solu-Cortef) 20 mg IV DAILY [facility] Last Admin: 07/10/18 10:39 Dose: 20 mg Dextrose (Dextrose 5% In Water 1000 Ml) 1,000 mls @ 0 mls/hr IV .Q0M PRN; Protocol PRN Reason: Hypoglycemia Protocol Piperacillin Sod/Tazobactam Sod (Zosyn 2.25 Gm Iv Premix) 2.25 gm in 50 mls @ 50 mls/hr IVPB Q8H [facility] Last Admin: 07/10/18 06:18 Dose: 50 mls/hr Acyclovir 275 mg/ Sodium (Chloride) 100 mls @ 100 mls/hr IV Q24H [facility]; Protocol Last Admin: 07/09/18 19:33 Dose: 100 mls/hr Vancomycin HCl 0.75 gm/ Sodium (Chloride) 250 mls @ 166.7 mls/hr IVPB MWF@1400 [facility]; Protocol Calcium Gluconate 4.65 meq/ (Sodium Chloride) 260 mls @ 260 mls/hr IV ONCE ONE Stop: 07/10/18 18:59 Insulin Human Regular (Novolin R) 0 unit SC ACHS [facility]; Protocol Last Admin: 07/10/18 07:58 Dose: 6 units Metoprolol Tartrate (Lopressor) 5 mg IVP Q12 [facility] Last Admin: 07/10/18 10:40 Dose: 5 mg Pantoprazole Sodium (Protonix Inj) 40 mg IVP Q12 [facility] Last Admin: 07/10/18 10:39 Dose: 40 mg Vitamin B Complex/Vit C/Folic Acid (Nephro-Douglas) 1 tab PO 0800 [facility] Last Admin: 07/10/18 08:30 Dose: Not Given Results - Vital Signs Recent Vital Signs: Last Vital Signs Temp 97.1 F L 07/10/18 08:00 Pulse 86 07/10/18 11:00 Resp 30 H 07/10/18 11:00 BP 162/91 H 07/10/18 10:31 Pulse Ox 100 07/10/18 11:00 - Labs Result Diagrams: 07/10/18 05:54 07/10/18 05:52 Labs: Laboratory Results - last 24 hr 07/08/18 07/10/18 07/10/18 23:16 05:52 05:52 WBC RBC Hgb Hct MCV MCH MCHC RDW Plt Count MPV Neut % (Auto) Lymph % (Auto) Teller % (Auto) Eos % (Auto) Baso % (Auto) Neut # (Auto) Lymph # (Auto) Teller # (Auto) Eos # (Auto) Baso # (Auto) Neutrophils % (Manual) Band Neutrophils % Lymphocytes % (Manual) Monocytes % (Manual) Platelet Estimate Hypochromasia (manual) Poikilocytosis (manual Anisocytosis (manual) Target Cells Ovalocytes Lenny Cells Schistocytes PT INR Sodium 135 Potassium 3.1 L Chloride 88 L Carbon Dioxide 32 H Anion Gap 17 BUN 70 H Creatinine 4.3 H Est GFR ( Amer) 12 Est GFR (Non-Af Amer) 10 Random Glucose 273 H D Calcium 9.7 Phosphorus 5.2 H Magnesium 2.1 Total Bilirubin 1.1 AST 24 ALT 14 Alkaline Phosphatase 84 Total Protein 4.8 L Albumin 2.9 L Globulin 1.9 L Albumin/Globulin Ratio 1.5 Random Vancomycin 15.0 Blood Type B POSITIVE Antibody Screen Negative 07/10/18 07/10/18 05:54 05:54 WBC 10.5 RBC 2.12 L Hgb 6.2 L* Hct 18.2 L MCV 86.0 MCH 29.2 MCHC 33.9 RDW 15.4 H Plt Count 27 L* MPV 11.3 Neut % (Auto) 92.3 H Lymph % (Auto) 2.7 L Teller % (Auto) 4.2 Eos % (Auto) 0.8 Baso % (Auto) 0.0 Neut # (Auto) 9.7 H Lymph # (Auto) 0.3 L Teller # (Auto) 0.4 Eos # (Auto) 0.1 Baso # (Auto) 0.0 Neutrophils % (Manual) 87 H Band Neutrophils % 5 H Lymphocytes % (Manual) 2 L Monocytes % (Manual) 6 Platelet Estimate Markedly decreased L Hypochromasia (manual) Moderate Poikilocytosis (manual Slight Anisocytosis (manual) Slight Target Cells Slight Ovalocytes Slight Olivet Cells Slight Schistocytes Slight PT 11.5 INR 1.1 Sodium Potassium Chloride Carbon Dioxide Anion Gap BUN Creatinine Est GFR ( Amer) Est GFR (Non-Af Amer) Random Glucose Calcium Phosphorus Magnesium Total Bilirubin AST ALT Alkaline Phosphatase Total Protein Albumin Globulin Albumin/Globulin Ratio Random Vancomycin Blood Type Antibody Screen
[2018-07-10] MEDS ORDERED: Acyclovir 250 MG in Sodium Chloride 0.9% 100 ML IV SCH (12:30)
--- NOTE | 2018-07-10 13:19 | RAD ---
HISTORY: SOB COMPARISON: Chest x-ray performed 07/08/18 TECHNIQUE: Chest, one view. FINDINGS: Examination limited by habitus. Right-sided PICC extends expected location of the cavoatrial junction. Right IJ approach dialysis catheter terminates at the cavoatrial junction. LUNGS: Mild to moderate central vascular prominence/venous congestion. Please note that chest x-ray has limited sensitivity for the detection of pulmonary masses. PLEURA: No significant pleural effusion identified. No definite pneumothorax . CARDIOVASCULAR: Cardiomegaly. Ectatic aorta. Atherosclerotic calcifications of the aorta. OSSEOUS STRUCTURES: Degenerative changes. VISUALIZED UPPER ABDOMEN: Unremarkable. OTHER FINDINGS: None. IMPRESSION: Right-sided PICC. Right IJ approach dialysis catheter. Mild to moderate central vascular prominence/venous congestion. Cardiomegaly.
--- NOTE | 2018-07-10 13:28 | CP.PCM.PN ---
<Rose Maria - Last Filed: 07/10/18 17:02> Subjective - Date & Time of Evaluation Date of Evaluation: 07/10/18 Time of Evaluation: 13:24 - Subjective Subjective: Progress note for Dr. Miguel Patient was seen and examined at bedside in no acute distress. Patient is nonverbal and review of systems was not obtained due to patients condition. Objective - Vital Signs/Intake and Output Vital Signs (last 24 hours): Temp Pulse Resp BP Pulse Ox 97.1 F L 86 30 H 162/91 H 100 07/10/18 08:00 07/10/18 11:00 07/10/18 11:00 07/10/18 10:31 07/10/18 11:00 Intake and Output: 07/10/18 07/10/18 06:59 18:59 Intake Total 448 100 Balance 448 100 - Medications Medications: Current Medications Acetaminophen (Tylenol 325mg Tab) 650 mg PO Q6 PRN PRN Reason: Fever >100.4 F Acetaminophen (Tylenol 650 Mg Supp) 650 mg MI ONCE ONE Stop: 07/10/18 18:01 Albuterol/Ipratropium (Duoneb 3 Mg/0.5 Mg (3 Ml) Ud) 3 ml INH RQ4 [facility] Last Admin: 07/10/18 04:00 Dose: Not Given Cinacalcet (Sensipar) 60 mg PO QPM [facility] Last Admin: 07/09/18 18:12 Dose: Not Given Dextrose (Dextrose 50% Inj) 0 ml IV STAT PRN; Protocol PRN Reason: Hypoglycemia Protocol Dextrose (Glutose 15) 0 gm PO ONCE PRN; Protocol PRN Reason: Hypoglycemia Protocol Diphenhydramine HCl (Benadryl) 25 mg IVP ONCE ONE Stop: 07/10/18 18:01 Epoetin Jose Ramon (Procrit) 10,000 unit IV MWF [facility] Glucagon (Glucagen Diagnostic Kit) 0 mg IM STAT PRN; Protocol PRN Reason: Hypoglycemia Protocol Hydrocortisone Sodium Succinate (Solu-Cortef) 20 mg IV DAILY [facility] Last Admin: 07/10/18 10:39 Dose: 20 mg Dextrose (Dextrose 5% In Water 1000 Ml) 1,000 mls @ 0 mls/hr IV .Q0M PRN; Protocol PRN Reason: Hypoglycemia Protocol Piperacillin Sod/Tazobactam Sod (Zosyn 2.25 Gm Iv Premix) 2.25 gm in 50 mls @ 50 mls/hr IVPB Q8H [facility] Last Admin: 07/10/18 06:18 Dose: 50 mls/hr Vancomycin HCl 0.75 gm/ Sodium (Chloride) 250 mls @ 166.7 mls/hr IVPB MWF@1400 [facility]; Protocol Calcium Gluconate 4.65 meq/ (Sodium Chloride) 260 mls @ 260 mls/hr IV ONCE ONE Stop: 07/10/18 18:59 Acyclovir 275 mg/ Sodium (Chloride) 100 mls @ 100 mls/hr IV Q24H [facility]; Protocol Insulin Human Regular (Novolin R) 0 unit SC ACHS [facility]; Protocol Last Admin: 07/10/18 12:15 Dose: 6 units Metoprolol Tartrate (Lopressor) 5 mg IVP Q12 [facility] Last Admin: 07/10/18 10:40 Dose: 5 mg Pantoprazole Sodium (Protonix Inj) 40 mg IVP Q12 [facility] Last Admin: 07/10/18 10:39 Dose: 40 mg Vitamin B Complex/Vit C/Folic Acid (Nephro-Douglas) 1 tab PO 0800 [facility] Last Admin: 07/10/18 08:30 Dose: Not Given - Labs Labs: 07/10/18 05:54 07/10/18 05:52 PT 11.5 SECONDS (9.7-12.2) 07/10/18 05:54 INR 1.1 07/10/18 05:54 APTT 26 SECONDS (21-34) 07/08/18 20:14 - Constitutional Appears: Well, No Acute Distress - Head Exam Head Exam: ATRAUMATIC, NORMAL INSPECTION - ENT Exam ENT Exam: Mucous Membranes Dry - Respiratory Exam Respiratory Exam: Decreased Breath Sounds, NORMAL BREATHING PATTERN - Cardiovascular Exam Cardiovascular Exam: REGULAR RHYTHM, +S1, +S2 - GI/Abdominal Exam GI & Abdominal Exam: Soft, Normal Bowel Sounds. absent: Distended, Firm, Guarding, Tenderness - Extremities Exam Extremities Exam: absent: Pedal Edema, Tenderness - Neurological Exam Neurological Exam: Awake. absent: Alert, Oriented x3 - Psychiatric Exam Psychiatric exam: Flat Affect - Skin Skin Exam: Dry, Warm Assessment and Plan - Assessment and Plan (Free Text) Plan: 72 year old female with a past medical history of ESRD on HD, HTN, DM, and dementia, who presented to the hospital with AMS and NSTEMI. NSTEMI - Trop elevated at admission, 0.3340. - EKG NSR@92, LVH - Patient is thrombocytopenic and has TTP, so not a candidate for anticoagulation - Will continue to follow Hypertension - Continue Metoprolol 5mg IV Q12 - Continue to monitor Case discussed with Dr. Lamont Beck, PGY2 <Anthony Miguel - Last Filed: 07/11/18 05:53> Objective - Vital Signs/Intake and Output Vital Signs (last 24 hours): Temp Pulse Resp BP Pulse Ox 97.2 F L 107 H 12 113/65 100 07/11/18 04:00 07/11/18 05:00 07/11/18 05:00 07/11/18 04:39 07/11/18 05:00 Intake and Output: 07/10/18 07/11/18 18:59 06:59 Intake Total 150 147 Balance 150 147 - Medications Medications: Current Medications Albuterol/Ipratropium (Duoneb 3 Mg/0.5 Mg (3 Ml) Ud) 3 ml INH RQ4 [facility] Last Admin: 07/11/18 03:15 Dose: 3 ml Dextrose (Dextrose 50% Inj) 0 ml IV STAT PRN; Protocol PRN Reason: Hypoglycemia Protocol Dextrose (Glutose 15) 0 gm PO ONCE PRN; Protocol PRN Reason: Hypoglycemia Protocol Glucagon (Glucagen Diagnostic Kit) 0 mg IM STAT PRN; Protocol PRN Reason: Hypoglycemia Protocol Hydrocortisone Sodium Succinate (Solu-Cortef) 20 mg IV DAILY [facility] Last Admin: 07/10/18 10:39 Dose: 20 mg Dextrose (Dextrose 5% In Water 1000 Ml) 1,000 mls @ 0 mls/hr IV .Q0M PRN; Protocol PRN Reason: Hypoglycemia Protocol Morphine Sulfate 100 mg/ (Dextrose) 100 mls @ 2 mls/hr IV .Q24H [facility]; Protocol Last Admin: 07/10/18 20:30 Dose: 2 mls/hr Metoprolol Tartrate (Lopressor) 5 mg IVP Q12 [facility] Last Admin: 07/10/18 22:16 Dose: 5 mg Morphine Sulfate (Morphine) 2 mg IVP Q4 PRN PRN Reason: Pain, moderate (4-7) - Labs Labs: 07/10/18 05:54 07/10/18 05:52 PT 11.5 SECONDS (9.7-12.2) 07/10/18 05:54 INR 1.1 07/10/18 05:54 APTT 26 SECONDS (21-34) 07/08/18 20:14 Assessment and Plan - Assessment and Plan (Free Text) Plan: Patient seen and personally evaluated by me. Plan of care d/w the medical microbiologist and as documented
--- NOTE | 2018-07-10 13:42 | CON ---
DATE: 07/10/2018 NEUROLOGY CONSULTATION HISTORY OF PRESENT ILLNESS: Ms. Moira Palma is a 72-year-old female with past medical history of dementia, DM, hypertension, ESRD, and HD, TTP status post plasma exchange, hyperlipidemia, who was brought to emergency room on 07/08/2018 for evaluation of weakness. The patient had dialysis on Sunday, Sunday, and Sunday for failed kidney transplant and she was less responsive after her dialysis today. CAT scan of the head was done and shows the following: Stable small right central parenchymal hemorrhage with an old right occipital infarct and periventricular white matter ischemic change, the parenchymal hemorrhage is now extending to the ventricles. Since then, the patient has been noted to be vacillating in her level of consciousness and Dr. Orr felt today that she would require a Neurology consult. REVIEW OF SYSTEMS: Not possible due to the patient's mental status. PAST MEDICAL HISTORY: As above. PAST SURGICAL HISTORY: As above. FAMILY HISTORY: Not known. SOCIAL HISTORY: No smoking. No drinking. The patient is a detention resident. ALLERGIES: ENALAPRIL. PHYSICAL EXAMINATION: NEUROLOGIC: The patient is alert and oriented x2. She does not know the date, and knows where she is. Cranial nerves II through XII are not normal. 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 All other ocular movements are normal. There is no facial droop. Speech is fluent; however, she does not allow us to examine her strength and sensory exam was screened instead. Of note, Dr. Orr said that she was able to hold arm earlier with mild drift, so we are not able to asses her strength. Reflexes are +1. The patient does not allow us to finish the exam . LABORATORY DATA: As follows: White count 10.5, hemoglobin 6.2 trending down from 7.4, hematocrit 18.2; platelets 27. Platelets have markedly decreased. Chemistry: Sodium 135, potassium 2.1, chloride 88, carbon dioxide 32, BUN 70, creatinine 4.3 pre-dialysis, random glucose 273, troponin 0.33, toxicology random was 15. 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 Of note, this patient has been having mental status changes that could be epilepsy or seizures. PLAN: 1. Repeat CAT scan of the head in the morning. Neurosurgical consult appreciated. 2. Video EEG for 24 hours. Thank you for this interesting consult. Karla Ash MD cc: Mark Orr MD
--- NOTE | 2018-07-10 13:56 | CP.PCM.CON ---
History of Present Illness - History of Present Illness History of Present Illness: Palliative consult requested by Doctor Adore for goals of care discussion, possible hospice Patient is a 72 yo female, admitted from [place] with weakness, lethargy, unresponsivness post HD which took place 1 day ago. Just few days ago, patient was verbal. On the day of admission patient was not able to speak , was just fallowing simple commends. On this admission, patient was diagnosed with dehydration and right frontal lobe intraperenchymal hemorrhage. BCs + cocci and Staph infection, IV antibiotics started. Renal and Hemo consult called. Slow hydration was advised along with blood transfusion. prognosis is seen as very poor and Comfort measures were suggested. PMH: Depression, failed kidney transplant, on HD, dementia, depression, TTP, plasma excahnge at [facility]. Soc. Hx: lives at home with her partner, was at [facility] before coming to hospital this time Fam. Hx: father with kidney issues, Review of Systems - Review of Systems All systems: reviewed and no additional remarkable complaints except Review of Systems: ROS unobtainable for patient due to AMS. Per nursing patient would scream in pain when repositioned to be cleaned. 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) - HEMATOLOGICAL/ONCOLOGICAL Hx Human Immunodeficiency Virus (HIV): No - INTEGUMENTARY Hx Dermatological Problems: No - MUSCULOSKELETAL/RHEUMATOLOGICAL Hx Falls: No - GASTROINTESTINAL Hx Gastrointestinal Disorders: No - GENITOURINARY/GYNECOLOGICAL Hx Sexually Transmitted Disorders: No - PSYCHIATRIC Hx Anxiety: Yes Hx Depression: Yes Hx Substance Use: No - SURGICAL HISTORY Hx Surgeries: Yes Hx Section: Yes Hx Kidney Transplant: Yes (right kidney 2009) - ANESTHESIA Hx Anesthesia: Yes Hx Anesthesia Reactions: No Meds Allergies/Adverse Reactions: Allergies Allergy/AdvReac Type Severity Reaction Status Date / Time enalapril Allergy Severe ANGIOEDEMA Verified 07/08/18 16:41 - Medications Medications: Current Medications Acetaminophen (Tylenol 325mg Tab) 650 mg PO Q6 PRN PRN Reason: Fever >100.4 F Acetaminophen (Tylenol 650 Mg Supp) 650 mg GA ONCE ONE Stop: 07/10/18 18:01 Albuterol/Ipratropium (Duoneb 3 Mg/0.5 Mg (3 Ml) Ud) 3 ml INH RQ4 JUAN M Last Admin: 07/10/18 04:00 Dose: Not Given Cinacalcet (Sensipar) 60 mg PO QPM [facility] Last Admin: 07/09/18 18:12 Dose: Not Given Dextrose (Dextrose 50% Inj) 0 ml IV STAT PRN; Protocol PRN Reason: Hypoglycemia Protocol Dextrose (Glutose 15) 0 gm PO ONCE PRN; Protocol PRN Reason: Hypoglycemia Protocol Diphenhydramine HCl (Benadryl) 25 mg IVP ONCE ONE Stop: 07/10/18 18:01 Epoetin Jose Ramon (Procrit) 10,000 unit IV MWF [facility] Glucagon (Glucagen Diagnostic Kit) 0 mg IM STAT PRN; Protocol PRN Reason: Hypoglycemia Protocol Hydrocortisone Sodium Succinate (Solu-Cortef) 20 mg IV DAILY [facility] Last Admin: 07/10/18 10:39 Dose: 20 mg Dextrose (Dextrose 5% In Water 1000 Ml) 1,000 mls @ 0 mls/hr IV .Q0M PRN; Protocol PRN Reason: Hypoglycemia Protocol Piperacillin Sod/Tazobactam Sod (Zosyn 2.25 Gm Iv Premix) 2.25 gm in 50 mls @ 50 mls/hr IVPB Q8H [facility] Last Admin: 07/10/18 06:18 Dose: 50 mls/hr Vancomycin HCl 0.75 gm/ Sodium (Chloride) 250 mls @ 166.7 mls/hr IVPB MWF@1400 JUAN M; Protocol Calcium Gluconate 4.65 meq/ (Sodium Chloride) 260 mls @ 260 mls/hr IV ONCE ONE Stop: 07/10/18 18:59 Acyclovir 275 mg/ Sodium (Chloride) 100 mls @ 100 mls/hr IV Q24H [facility]; Protocol Insulin Human Regular (Novolin R) 0 unit SC ACHS [facility]; Protocol Last Admin: 07/10/18 12:15 Dose: 6 units Metoprolol Tartrate (Lopressor) 5 mg IVP Q12 [facility] Last Admin: 07/10/18 10:40 Dose: 5 mg Pantoprazole Sodium (Protonix Inj) 40 mg IVP Q12 [facility] Last Admin: 07/10/18 10:39 Dose: 40 mg Vitamin B Complex/Vit C/Folic Acid (Nephro-Douglas) 1 tab PO 0800 [facility] Last Admin: 07/10/18 08:30 Dose: Not Given Physical Exam - Constitutional Appears: In Acute Distress, Chronically Ill - Head Exam Head Exam: ATRAUMATIC, NORMAL INSPECTION, NORMOCEPHALIC - Eye Exam Eye Exam: EOMI, Normal appearance, PERRL Pupil Exam: NORMAL ACCOMODATION, PERRL - ENT Exam ENT Exam: Mucous Membranes Dry - Neck Exam Neck exam: Positive for: Normal Inspection - Respiratory Exam Respiratory Exam: Decreased Breath Sounds Additional comments: mouth breather - Cardiovascular Exam Cardiovascular Exam: Tachycardia, Irregular Rhythm - GI/Abdominal Exam GI & Abdominal Exam: Diminished Bowel Sounds, Soft Additional comments: incontinent - Rectal Exam Rectal Exam: Deferred - Extremities Exam Extremities exam: Positive for: pedal edema - Back Exam Back exam: NORMAL INSPECTION - Neurological Exam Neurological exam: Alert, Motor Sensory Deficit - Psychiatric Exam Psychiatric exam: Flat Affect - Skin Skin Exam: Dry, Pallor Results - Vital Signs Recent Vital Signs: Last Vital Signs Temp 97.1 F L 07/10/18 08:00 Pulse 86 07/10/18 11:00 Resp 30 H 07/10/18 11:00 BP 162/91 H 07/10/18 10:31 Pulse Ox 100 07/10/18 11:00 - Labs Result Diagrams: 07/10/18 05:54 07/10/18 05:52 Labs: Laboratory Results - last 24 hr 07/08/18 07/10/18 07/10/18 23:16 05:52 05:52 WBC RBC Hgb Hct MCV MCH MCHC RDW Plt Count MPV Neut % (Auto) Lymph % (Auto) Moca % (Auto) Eos % (Auto) Baso % (Auto) Neut # (Auto) Lymph # (Auto) Moca # (Auto) Eos # (Auto) Baso # (Auto) Neutrophils % (Manual) Band Neutrophils % Lymphocytes % (Manual) Monocytes % (Manual) Platelet Estimate Hypochromasia (manual) Poikilocytosis (manual Anisocytosis (manual) Target Cells Ovalocytes Kiana Cells Schistocytes PT INR Sodium 135 Potassium 3.1 L Chloride 88 L Carbon Dioxide 32 H Anion Gap 17 BUN 70 H Creatinine 4.3 H Est GFR ( Amer) 12 Est GFR (Non-Af Amer) 10 Random Glucose 273 H D Calcium 9.7 Phosphorus 5.2 H Magnesium 2.1 Total Bilirubin 1.1 AST 24 ALT 14 Alkaline Phosphatase 84 Total Protein 4.8 L Albumin 2.9 L Globulin 1.9 L Albumin/Globulin Ratio 1.5 Random Vancomycin 15.0 Blood Type B POSITIVE Antibody Screen Negative 07/10/18 07/10/18 05:54 05:54 WBC 10.5 RBC 2.12 L Hgb 6.2 L* Hct 18.2 L MCV 86.0 MCH 29.2 MCHC 33.9 RDW 15.4 H Plt Count 27 L* MPV 11.3 Neut % (Auto) 92.3 H Lymph % (Auto) 2.7 L Moca % (Auto) 4.2 Eos % (Auto) 0.8 Baso % (Auto) 0.0 Neut # (Auto) 9.7 H Lymph # (Auto) 0.3 L Moca # (Auto) 0.4 Eos # (Auto) 0.1 Baso # (Auto) 0.0 Neutrophils % (Manual) 87 H Band Neutrophils % 5 H Lymphocytes % (Manual) 2 L Monocytes % (Manual) 6 Platelet Estimate Markedly decreased L Hypochromasia (manual) Moderate Poikilocytosis (manual Slight Anisocytosis (manual) Slight Target Cells Slight Ovalocytes Slight Lenny Cells Slight Schistocytes Slight PT 11.5 INR 1.1 Sodium Potassium Chloride Carbon Dioxide Anion Gap BUN Creatinine Est GFR ( Amer) Est GFR (Non-Af Amer) Random Glucose Calcium Phosphorus Magnesium Total Bilirubin AST ALT Alkaline Phosphatase Total Protein Albumin Globulin Albumin/Globulin Ratio Random Vancomycin Blood Type Antibody Screen Assessment & Plan - Assessment and Plan (Free Text) Assessment: Palliative consult Full Code, there is no Advance directive on chart,PPS 10% I reviewed all medical charts and diagnostic studies, examined patient and discussed goals of care with daughter Patient is alert, altered, unable to fallow, does not make eye contacts, reacts to pain only, aphasic. Skin pale, Hb 6.2, no wounds. Breathing shallow, fast, RR 30, o2 3 L via NC, O2sat 100%. HR 113, sinus arrythmia. BP 162/91. Abdomen flat, active bowel sounds, NPO due to lethargy. gentle IV hydration on. Limited active ROM. Needs max assistance with care. Patient ujable to report pain. Pain level estimated as moderate to severe during care and repositioning. Hb 6.2, Plat 27, blood cultures positive Goals of care discussed with daughter Marilou. Doctor Avitia and Doctor Christy reviewed with her the acuity of her mother's condition and grave prognosis. I was there to support daughter. Comfort care was suggested as best level of care for the patient in given circumstances of irreversible condition. Daughter cried and insisted was not ready to make any decision of that kind. She is the only child, single with 4 children and has no family support. She decided that her step father should be able to help her decide regarding comfort care. I continued offering support to the daughter and asked [employer] to offer Spiritual support as daughter admitted being very distressed and wanted to pray. We than discussed Code status. I made sure daughter understood the DNR meaning and introduced POLST. At first she agreed to it, than later decided she needed more time to talk about it. I made Doctor Adore aware of it. Impression * Critical condition due to multiorgan failure * I feel patient will most likely on this admission * Unable to tolerate PO due to lethargy * Anemia 2nd to kidney failure * Thrombocytopenia, high risk for bleed * Patient's daughter is having difficult time deciding on comfort care * Daughter is overwhelmed with guilt and emotions Suggestion * Continue current care * Anticipate patient's pain, would give Morphine 2 mg Iv Q 8 hr PRN pain/discomfort * Oral care Q 2 hr for dry mouth. Patient is a mouth breather * If daughter does not decide on Comfort care by tomorrow morning, patient may need to be given transfusion * Monitor for signs of abnormal bleeding * Support daughter and allow her time to make decisions. She is under stress , and it is the worse time to ask for any decisions to be made. palliative care will remain on board and fallow up with patient and daughter. Advance care planing 60 min.
[2018-07-10] MEDS ORDERED: DiphenhydrAMINE 50 mg/ml Inj IVP ONE (15:00)
--- NOTE | 2018-07-10 15:35 | CP.CCUPN ---
<Charles Maki - Last Filed: 07/10/18 17:48> CCU Subjective - Physician Review Subjective (Free Text): 07/10/18 17:37 PGY-1 Critical Care Progress Note for Dr. Banks Patient seen and examined at bedside. No acute events overnight. Patient's family is understandably very distressed about patient's clinical condition and prognosis. She remains full code at present, but family members will consider code status. ROS unable to be obtained. CCU Objective - Vital Signs / Intake & Output Vital Signs (Last 4 hours): Vital Signs Temp Pulse Resp BP Pulse Ox 07/10/18 14:00 104 H 39 H 100 07/10/18 13:31 103 H 34 H 134/80 99 07/10/18 13:00 102 H 38 H 99 07/10/18 12:31 102 H 37 H 134/76 100 07/10/18 12:00 98.0 F 95 H 38 H 100 07/10/18 11:32 92 H 35 H 125/75 100 Intake and Output (Last 8hrs): Intake & Output 07/10/18 07/10/18 07/10/18 06:59 14:59 22:59 Intake Total 50 100 Balance 50 100 Weight 113 lb 5.082 oz Intake: Intake, IV Amount 50 50 right arm PICC 50 50 Oral 0 50 Other: # Bowel Movements 0 - Physical Exam Head: Positive for: Atraumatic, Normocephalic Pupils: Positive for: PERRL Extroacular Muscles: Positive for: EOMI Mouth: Positive for: Moist Mucous Membranes Cardiovascular: Positive for: Regular Rate and Rhythm, Normal S1, S2 Abdomen: Negative for: Tenderness, Distention Neurological: Positive for: Other (Patient responds to pain, responding to visual cues. Making sounds but generally nonverbal.). Negative for: GCS=15 Skin: Positive for: Other (Purpura on arms) - Medications Active Medications: Active Medications Generic Name Dose Route Start Last Admin Trade Name Freq PRN Reason Stop Dose Admin Acetaminophen 650 mg 07/08/18 22:21 Tylenol 325mg Tab PO Q6 PRN Fever >100.4 F Albuterol/Ipratropium 3 ml 07/09/18 20:00 07/10/18 14:32 Duoneb 3 Mg/0.5 Mg (3 Ml) Ud INH 3 ml RQ4 JUAN M Administration Cinacalcet 60 mg 07/09/18 18:00 07/09/18 18:12 Sensipar PO Not Given QPM JUAN M Dextrose 0 ml 07/08/18 22:26 Dextrose 50% Inj IV STAT PRN Hypoglycemia Protocol Protocol Dextrose 0 gm 07/08/18 22:26 Glutose 15 PO ONCE PRN Hypoglycemia Protocol Protocol Epoetin Jose Ramon 10,000 unit 07/10/18 09:00 Procrit IV MWF JUAN M Glucagon 0 mg 07/08/18 22:26 Glucagen Diagnostic Kit IM STAT PRN Hypoglycemia Protocol Protocol Hydrocortisone Sodium Succinate 20 mg 07/10/18 10:30 07/10/18 10:39 Solu-Cortef IV 20 mg DAILY JUAN M Administration Dextrose 1,000 mls @ 0 mls/hr 07/08/18 22:26 Dextrose 5% In Water 1000 Ml IV .Q0M PRN Hypoglycemia Protocol Protocol Per Protocol Piperacillin Sod/Tazobactam Sod 2.25 gm in 50 mls @ 50 mls/hr 07/08/18 23:00 07/10/18 06:18 Zosyn 2.25 Gm Iv Premix IVPB 50 mls/hr Q8H JUAN M Administration Vancomycin HCl 0.75 gm/ Sodium 250 mls @ 166.7 mls/hr 07/10/18 14:00 Chloride IVPB MWF@1400 JUAN M Protocol Calcium Gluconate 4.65 meq/ 260 mls @ 260 mls/hr 07/10/18 18:00 07/10/18 14:34 Sodium Chloride IV 07/10/18 18:59 260 mls/hr ONCE ONE Administration Acyclovir 275 mg/ Sodium 100 mls @ 100 mls/hr 07/10/18 16:00 Chloride IV Q24H JUAN M Protocol Insulin Human Regular 0 unit 07/09/18 07:30 07/10/18 12:15 Novolin R SC 6 units ACHS JUAN M Administration Protocol Metoprolol Tartrate 5 mg 07/10/18 10:30 07/10/18 10:40 Lopressor IVP 5 mg Q12 JUAN M Administration Pantoprazole Sodium 40 mg 07/10/18 10:00 07/10/18 10:39 Protonix Inj IVP 40 mg Q12 JUAN M Administration Vitamin B Complex/Vit C/Folic Acid 1 tab 07/10/18 08:00 07/10/18 08:30 Nephro-Douglas PO Not Given 0800 [facility] - Patient Studies Lab Studies: Microbiology Studies 07/09/18 06:20 MRSA Culture (Admit) - Final Naris MRSA NOT DETECTED 07/09/18 06:23 S.aureus & Coag-Neg Staph PNA FISH - Final Blood TEST NOT PERFORMED Blood Culture - Preliminary Staphylococcus Aureus Gram Stain - Final 07/09/18 06:23 Blood Culture - Preliminary Blood Gram Positive Cocci Gram Stain - Final Lab Studies 07/10/18 07/10/18 07/10/18 Range/Units 05:54 05:54 05:52 WBC 10.5 (4.8-10.8) K/uL RBC 2.12 L (3.80-5.20) Mil/uL Hgb 6.2 L* (11.0-16.0) g/dL Hct 18.2 L (34.0-47.0) % MCV 86.0 (81.0-99.0) fL MCH 29.2 (27.0-31.0) pg MCHC 33.9 (33.0-37.0) g/dL RDW 15.4 H (11.5-14.5) % Plt Count 27 L* (130-400) K/uL MPV 11.3 (7.2-11.7) fL Neut % (Auto) 92.3 H (50.0-75.0) % Lymph % (Auto) 2.7 L (20.0-40.0) % [place] % (Auto) 4.2 (0.0-10.0) % Eos % (Auto) 0.8 (0.0-4.0) % Baso % (Auto) 0.0 (0.0-2.0) % Neut # (Auto) 9.7 H (1.8-7.0) K/uL Lymph # (Auto) 0.3 L (1.0-4.3) K/uL [place] # (Auto) 0.4 (0.0-0.8) K/uL Eos # (Auto) 0.1 (0.0-0.7) K/uL Baso # (Auto) 0.0 (0.0-0.2) K/uL Neutrophils % (Manual) 87 H (50-75) % Band Neutrophils % 5 H (0-2) % Lymphocytes % (Manual) 2 L (20-40) % Monocytes % (Manual) 6 (0-10) % Platelet Estimate Markedly decreased L (NORMAL) Hypochromasia (manual) Moderate Poikilocytosis (manual Slight Anisocytosis (manual) Slight Target Cells Slight Ovalocytes Slight [place] Cells Slight Schistocytes Slight PT 11.5 (9.7-12.2) SECONDS INR 1.1 Sodium (132-148) mmol/L Potassium (3.6-5.2) mmol/L Chloride (98-107) mmol/L Carbon Dioxide (22-30) mmol/L Anion Gap (10-20) BUN (7-17) mg/dL Creatinine (0.7-1.2) mg/dL Est GFR ( Amer) Est GFR (Non-Af Amer) Random Glucose (65-105) mg/dL Calcium (8.6-10.4) mg/dl Phosphorus (2.5-4.5) mg/dL Magnesium (1.6-2.3) mg/dL Total Bilirubin (0.2-1.3) mg/dL AST (14-36) U/L ALT (9-52) U/L Alkaline Phosphatase (38-126) U/L Total Protein (6.3-8.3) g/dL Albumin (3.5-5.0) g/dL Globulin (2.2-3.9) gm/dL Albumin/Globulin Ratio (1.0-2.1) Random Vancomycin 15.0 ug/mL Blood Type Antibody Screen 07/10/18 07/08/18 Range/Units 05:52 23:16 WBC (4.8-10.8) K/uL RBC (3.80-5.20) Mil/uL Hgb (11.0-16.0) g/dL Hct (34.0-47.0) % MCV (81.0-99.0) fL MCH (27.0-31.0) pg MCHC (33.0-37.0) g/dL RDW (11.5-14.5) % Plt Count (130-400) K/uL MPV (7.2-11.7) fL Neut % (Auto) (50.0-75.0) % Lymph % (Auto) (20.0-40.0) % [place] % (Auto) (0.0-10.0) % Eos % (Auto) (0.0-4.0) % Baso % (Auto) (0.0-2.0) % Neut # (Auto) (1.8-7.0) K/uL Lymph # (Auto) (1.0-4.3) K/uL [place] # (Auto) (0.0-0.8) K/uL Eos # (Auto) (0.0-0.7) K/uL Baso # (Auto) (0.0-0.2) K/uL Neutrophils % (Manual) (50-75) % Band Neutrophils % (0-2) % Lymphocytes % (Manual) (20-40) % Monocytes % (Manual) (0-10) % Platelet Estimate (NORMAL) Hypochromasia (manual) Poikilocytosis (manual Anisocytosis (manual) Target Cells Ovalocytes [place] Cells Schistocytes PT (9.7-12.2) SECONDS INR Sodium 135 (132-148) mmol/L Potassium 3.1 L (3.6-5.2) mmol/L Chloride 88 L (98-107) mmol/L Carbon Dioxide 32 H (22-30) mmol/L Anion Gap 17 (10-20) BUN 70 H (7-17) mg/dL Creatinine 4.3 H (0.7-1.2) mg/dL Est GFR ( Amer) 12 Est GFR (Non-Af Amer) 10 Random Glucose 273 H D (65-105) mg/dL Calcium 9.7 (8.6-10.4) mg/dl Phosphorus 5.2 H (2.5-4.5) mg/dL Magnesium 2.1 (1.6-2.3) mg/dL Total Bilirubin 1.1 (0.2-1.3) mg/dL AST 24 (14-36) U/L ALT 14 (9-52) U/L Alkaline Phosphatase 84 (38-126) U/L Total Protein 4.8 L (6.3-8.3) g/dL Albumin 2.9 L (3.5-5.0) g/dL Globulin 1.9 L (2.2-3.9) gm/dL Albumin/Globulin Ratio 1.5 (1.0-2.1) Random Vancomycin ug/mL Blood Type B POSITIVE Antibody Screen Negative Laboratory Results - last 24 hr 07/08/18 07/10/18 07/10/18 23:16 05:52 05:52 WBC RBC Hgb Hct MCV MCH MCHC RDW Plt Count MPV Neut % (Auto) Lymph % (Auto) [place] % (Auto) Eos % (Auto) Baso % (Auto) Neut # (Auto) Lymph # (Auto) [place] # (Auto) Eos # (Auto) Baso # (Auto) Neutrophils % (Manual) Band Neutrophils % Lymphocytes % (Manual) Monocytes % (Manual) Platelet Estimate Hypochromasia (manual) Poikilocytosis (manual Anisocytosis (manual) Target Cells Ovalocytes [place] Cells Schistocytes PT INR Sodium 135 Potassium 3.1 L Chloride 88 L Carbon Dioxide 32 H Anion Gap 17 BUN 70 H Creatinine 4.3 H Est GFR ( Amer) 12 Est GFR (Non-Af Amer) 10 Random Glucose 273 H D Calcium 9.7 Phosphorus 5.2 H Magnesium 2.1 Total Bilirubin 1.1 AST 24 ALT 14 Alkaline Phosphatase 84 Total Protein 4.8 L Albumin 2.9 L Globulin 1.9 L Albumin/Globulin Ratio 1.5 Random Vancomycin 15.0 Blood Type B POSITIVE Antibody Screen Negative 07/10/18 07/10/18 05:54 05:54 WBC 10.5 RBC 2.12 L Hgb 6.2 L* Hct 18.2 L MCV 86.0 MCH 29.2 MCHC 33.9 RDW 15.4 H Plt Count 27 L* MPV 11.3 Neut % (Auto) 92.3 H Lymph % (Auto) 2.7 L [place] % (Auto) 4.2 Eos % (Auto) 0.8 Baso % (Auto) 0.0 Neut # (Auto) 9.7 H Lymph # (Auto) 0.3 L [place] # (Auto) 0.4 Eos # (Auto) 0.1 Baso # (Auto) 0.0 Neutrophils % (Manual) 87 H Band Neutrophils % 5 H Lymphocytes % (Manual) 2 L Monocytes % (Manual) 6 Platelet Estimate Markedly decreased L Hypochromasia (manual) Moderate Poikilocytosis (manual Slight Anisocytosis (manual) Slight Target Cells Slight Ovalocytes Slight [place] Cells Slight Schistocytes Slight PT 11.5 INR 1.1 Sodium Potassium Chloride Carbon Dioxide Anion Gap BUN Creatinine Est GFR ( Amer) Est GFR (Non-Af Amer) Random Glucose Calcium Phosphorus Magnesium Total Bilirubin AST ALT Alkaline Phosphatase Total Protein Albumin Globulin Albumin/Globulin Ratio Random Vancomycin Blood Type Antibody Screen Radiology Impressions: Radiology Impressions Chest X-Ray 07/10/18 10:18 IMPRESSION: Right-sided PICC. Right IJ approach dialysis catheter. Mild to moderate central vascular prominence/venous congestion. Cardiomegaly. Fingerstick Blood Sugar Results: 314 Review of Systems - Review of Systems All systems: reviewed and no additional remarkable complaints except Critical Care Progress Note - Nutrition Nutrition: Nutrition Category Date Time Status NPO Diet [DIET] Diets 07/10/18 Breakfast Active Assessment/Plan - Assessment and Plan (Free Text) Assessment: 72 y/o male with DM, HTN, TTP, ESRD on HD, dementia presenting with Altered Mental status found to have acute R frontal lobe ICH. CBC and presentation consistent with TTP, patient undergoing plasmapharesis treatments. Neuro R frontal lobe ICH on CT head -Repeat CT head shows stable bleed -Neurosurgery consulted, Dr. Diaz --No surgical intervention noted at this time -Monitor in ICU -Avoid pharmacologic AC -Patient with chronic and worsening dementia, overall prognosis thought to be poor in terms of recovery of neurocognitive functioning. 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 Cruz -Repeat platelet count 22 -Peripheral smear with schistocytes, and low number platelets -Patient undergoing plasmapheresis treatments Endo DM -ISS -Monitor accuchecks Q6 -hypoglycemia protocol PPx -DVT ppx c/i 2/2 thrombocytopenia -Palliative care consult on board, Alyson Garcia APN --Patient remains FULL CODE. No advanced directive. Daughter states will consider changing code status. Assessment and plan d/w Dr. Jocelyn Maki, PGY-1 <Westley Banks - Last Filed: 07/10/18 18:26> CCU Objective - Vital Signs / Intake & Output Vital Signs (Last 4 hours): Vital Signs Pulse Resp BP Pulse Ox 07/10/18 17:02 109 H 39 H 137/81 100 07/10/18 17:00 110 H 39 H 100 07/10/18 16:47 114 H 40 H 136/77 100 07/10/18 16:31 112 H 41 H 127/79 100 07/10/18 16:16 114 H 36 H 120/78 100 07/10/18 16:02 116 H 44 H 128/81 100 07/10/18 16:00 117 H 42 H 100 07/10/18 15:49 112 H 42 H 125/66 100 07/10/18 15:31 117 H 40 H 135/73 100 07/10/18 15:00 111 H 41 H 100 07/10/18 14:31 113 H 38 H 156/91 H 100 Intake and Output (Last 8hrs): Intake & Output 07/10/18 07/10/18 07/10/18 06:59 14:59 22:59 Intake Total 50 100 Balance 50 100 Weight 113 lb 5.082 oz Intake: Intake, IV Amount 50 50 right arm PICC 50 50 Oral 0 50 Other: # Bowel Movements 0 - Medications Active Medications: Active Medications Generic Name Dose Route Start Last Admin Trade Name Freq PRN Reason Stop Dose Admin Acetaminophen 650 mg 07/08/18 22:21 Tylenol 325mg Tab PO Q6 PRN Fever >100.4 F Albuterol/Ipratropium 3 ml 07/09/18 20:00 07/10/18 16:52 Duoneb 3 Mg/0.5 Mg (3 Ml) Ud INH Not Given RQ4 JUAN M Cinacalcet 60 mg 07/09/18 18:00 07/10/18 17:15 Sensipar PO Not Given QPM JUAN M Dextrose 0 ml 07/08/18 22:26 Dextrose 50% Inj IV STAT PRN Hypoglycemia Protocol Protocol Dextrose 0 gm 07/08/18 22:26 Glutose 15 PO ONCE PRN Hypoglycemia Protocol Protocol Epoetin Jose Ramon 10,000 unit 07/11/18 10:00 Procrit IV TTS JUAN M Glucagon 0 mg 07/08/18 22:26 Glucagen Diagnostic Kit IM STAT PRN Hypoglycemia Protocol Protocol Hydrocortisone Sodium Succinate 20 mg 07/10/18 10:30 07/10/18 10:39 Solu-Cortef IV 20 mg DAILY JUAN M Administration Dextrose 1,000 mls @ 0 mls/hr 07/08/18 22:26 Dextrose 5% In Water 1000 Ml IV .Q0M PRN Hypoglycemia Protocol Protocol Per Protocol Piperacillin Sod/Tazobactam Sod 2.25 gm in 50 mls @ 50 mls/hr 07/08/18 23:00 07/10/18 18:01 Zosyn 2.25 Gm Iv Premix IVPB 50 mls/hr Q8H JUAN M Administration Acyclovir 275 mg/ Sodium 100 mls @ 100 mls/hr 07/10/18 16:00 07/10/18 18:22 Chloride IV 100 mls/hr Q24H JUAN M Administration Protocol Vancomycin HCl 0.75 gm/ Sodium 250 mls @ 166.7 mls/hr 07/11/18 08:00 Chloride IVPB MWF@1400 JUAN M Protocol Insulin Human Regular 0 unit 07/11/18 00:00 Novolin R SC Q6 [facility] Protocol Metoprolol Tartrate 5 mg 07/10/18 10:30 07/10/18 10:40 Lopressor IVP 5 mg Q12 JUAN M Administration Pantoprazole Sodium 40 mg 07/10/18 10:00 07/10/18 10:39 Protonix Inj IVP 40 mg Q12 JUAN M Administration Vitamin B Complex/Vit C/Folic Acid 1 tab 07/10/18 08:00 07/10/18 08:30 Nephro-Douglas PO Not Given 0800 [facility] - Patient Studies Lab Studies: Microbiology Studies 07/09/18 06:20 MRSA Culture (Admit) - Final Naris MRSA NOT DETECTED 07/09/18 06:23 S.aureus & Coag-Neg Staph PNA FISH - Final Blood TEST NOT PERFORMED Blood Culture - Preliminary Staphylococcus Aureus Gram Stain - Final 07/09/18 06:23 Blood Culture - Preliminary Blood Gram Positive Cocci Gram Stain - Final Lab Studies 07/10/18 07/10/18 07/10/18 Range/Units 17:10 05:54 05:54 WBC 10.5 (4.8-10.8) K/uL RBC 2.12 L (3.80-5.20) Mil/uL Hgb 6.2 L* (11.0-16.0) g/dL Hct 18.2 L (34.0-47.0) % MCV 86.0 (81.0-99.0) fL MCH 29.2 (27.0-31.0) pg MCHC 33.9 (33.0-37.0) g/dL RDW 15.4 H (11.5-14.5) % Plt Count 27 L* (130-400) K/uL MPV 11.3 (7.2-11.7) fL Neut % (Auto) 92.3 H (50.0-75.0) % Lymph % (Auto) 2.7 L (20.0-40.0) % [place] % (Auto) 4.2 (0.0-10.0) % Eos % (Auto) 0.8 (0.0-4.0) % Baso % (Auto) 0.0 (0.0-2.0) % Neut # (Auto) 9.7 H (1.8-7.0) K/uL Lymph # (Auto) 0.3 L (1.0-4.3) K/uL [place] # (Auto) 0.4 (0.0-0.8) K/uL Eos # (Auto) 0.1 (0.0-0.7) K/uL Baso # (Auto) 0.0 (0.0-0.2) K/uL Neutrophils % (Manual) 87 H (50-75) % Band Neutrophils % 5 H (0-2) % Lymphocytes % (Manual) 2 L (20-40) % Monocytes % (Manual) 6 (0-10) % Platelet Estimate Markedly decreased L (NORMAL) Hypochromasia (manual) Moderate Poikilocytosis (manual Slight Anisocytosis (manual) Slight Target Cells Slight Ovalocytes Slight [place] Cells Slight Schistocytes Slight PT 11.5 (9.7-12.2) SECONDS INR 1.1 Sodium (132-148) mmol/L Potassium (3.6-5.2) mmol/L Chloride (98-107) mmol/L Carbon Dioxide (22-30) mmol/L Anion Gap (10-20) BUN (7-17) mg/dL Creatinine (0.7-1.2) mg/dL Est GFR ( Amer) Est GFR (Non-Af Amer) Random Glucose (65-105) mg/dL Calcium (8.6-10.4) mg/dl Phosphorus (2.5-4.5) mg/dL Magnesium (1.6-2.3) mg/dL Total Bilirubin (0.2-1.3) mg/dL AST (14-36) U/L ALT (9-52) U/L Alkaline Phosphatase (38-126) U/L Total Protein (6.3-8.3) g/dL Albumin (3.5-5.0) g/dL Globulin (2.2-3.9) gm/dL Albumin/Globulin Ratio (1.0-2.1) Random Vancomycin ug/mL Hep Bs Antigen Negative (NEGATIVE) Blood Type Antibody Screen 07/10/18 07/10/18 07/08/18 Range/Units 05:52 05:52 23:16 WBC (4.8-10.8) K/uL RBC (3.80-5.20) Mil/uL Hgb (11.0-16.0) g/dL Hct (34.0-47.0) % MCV (81.0-99.0) fL MCH (27.0-31.0) pg MCHC (33.0-37.0) g/dL RDW (11.5-14.5) % Plt Count (130-400) K/uL MPV (7.2-11.7) fL Neut % (Auto) (50.0-75.0) % Lymph % (Auto) (20.0-40.0) % [place] % (Auto) (0.0-10.0) % Eos % (Auto) (0.0-4.0) % Baso % (Auto) (0.0-2.0) % Neut # (Auto) (1.8-7.0) K/uL Lymph # (Auto) (1.0-4.3) K/uL [place] # (Auto) (0.0-0.8) K/uL Eos # (Auto) (0.0-0.7) K/uL Baso # (Auto) (0.0-0.2) K/uL Neutrophils % (Manual) (50-75) % Band Neutrophils % (0-2) % Lymphocytes % (Manual) (20-40) % Monocytes % (Manual) (0-10) % Platelet Estimate (NORMAL) Hypochromasia (manual) Poikilocytosis (manual Anisocytosis (manual) Target Cells Ovalocytes [place] Cells Schistocytes PT (9.7-12.2) SECONDS INR Sodium 135 (132-148) mmol/L Potassium 3.1 L (3.6-5.2) mmol/L Chloride 88 L (98-107) mmol/L Carbon Dioxide 32 H (22-30) mmol/L Anion Gap 17 (10-20) BUN 70 H (7-17) mg/dL Creatinine 4.3 H (0.7-1.2) mg/dL Est GFR ( Amer) 12 Est GFR (Non-Af Amer) 10 Random Glucose 273 H D (65-105) mg/dL Calcium 9.7 (8.6-10.4) mg/dl Phosphorus 5.2 H (2.5-4.5) mg/dL Magnesium 2.1 (1.6-2.3) mg/dL Total Bilirubin 1.1 (0.2-1.3) mg/dL AST 24 (14-36) U/L ALT 14 (9-52) U/L Alkaline Phosphatase 84 (38-126) U/L Total Protein 4.8 L (6.3-8.3) g/dL Albumin 2.9 L (3.5-5.0) g/dL Globulin 1.9 L (2.2-3.9) gm/dL Albumin/Globulin Ratio 1.5 (1.0-2.1) Random Vancomycin 15.0 ug/mL Hep Bs Antigen (NEGATIVE) Blood Type B POSITIVE Antibody Screen Negative Laboratory Results - last 24 hr 07/08/18 07/10/18 07/10/18 23:16 05:52 05:52 WBC RBC Hgb Hct MCV MCH MCHC RDW Plt Count MPV Neut % (Auto) Lymph % (Auto) [place] % (Auto) Eos % (Auto) Baso % (Auto) Neut # (Auto) Lymph # (Auto) [place] # (Auto) Eos # (Auto) Baso # (Auto) Neutrophils % (Manual) Band Neutrophils % Lymphocytes % (Manual) Monocytes % (Manual) Platelet Estimate Hypochromasia (manual) Poikilocytosis (manual Anisocytosis (manual) Target Cells Ovalocytes [place] Cells Schistocytes PT INR Sodium 135 Potassium 3.1 L Chloride 88 L Carbon Dioxide 32 H Anion Gap 17 BUN 70 H Creatinine 4.3 H Est GFR ( Amer) 12 Est GFR (Non-Af Amer) 10 Random Glucose 273 H D Calcium 9.7 Phosphorus 5.2 H Magnesium 2.1 Total Bilirubin 1.1 AST 24 ALT 14 Alkaline Phosphatase 84 Total Protein 4.8 L Albumin 2.9 L Globulin 1.9 L Albumin/Globulin Ratio 1.5 Random Vancomycin 15.0 Hep Bs Antigen Blood Type B POSITIVE Antibody Screen Negative 07/10/18 07/10/18 07/10/18 05:54 05:54 17:10 WBC 10.5 RBC 2.12 L Hgb 6.2 L* Hct 18.2 L MCV 86.0 MCH 29.2 MCHC 33.9 RDW 15.4 H Plt Count 27 L* MPV 11.3 Neut % (Auto) 92.3 H Lymph % (Auto) 2.7 L [place] % (Auto) 4.2 Eos % (Auto) 0.8 Baso % (Auto) 0.0 Neut # (Auto) 9.7 H Lymph # (Auto) 0.3 L [place] # (Auto) 0.4 Eos # (Auto) 0.1 Baso # (Auto) 0.0 Neutrophils % (Manual) 87 H Band Neutrophils % 5 H Lymphocytes % (Manual) 2 L Monocytes % (Manual) 6 Platelet Estimate Markedly decreased L Hypochromasia (manual) Moderate Poikilocytosis (manual Slight Anisocytosis (manual) Slight Target Cells Slight Ovalocytes Slight [place] Cells Slight Schistocytes Slight PT 11.5 INR 1.1 Sodium Potassium Chloride Carbon Dioxide Anion Gap BUN Creatinine Est GFR ( Amer) Est GFR (Non-Af Amer) Random Glucose Calcium Phosphorus Magnesium Total Bilirubin AST ALT Alkaline Phosphatase Total Protein Albumin Globulin Albumin/Globulin Ratio Random Vancomycin Hep Bs Antigen Negative Blood Type Antibody Screen Radiology Impressions: Radiology Impressions Chest X-Ray 07/10/18 10:18 IMPRESSION: Right-sided PICC. Right IJ approach dialysis catheter. Mild to moderate central vascular prominence/venous congestion. Cardiomegaly. Critical Care Progress Note - Nutrition Nutrition: Nutrition Category Date Time Status NPO Diet [DIET] Diets 07/10/18 Breakfast Active Attending/Attestation - Attestation I have personally seen and examined this patient.: Yes I have fully participated in the care of the patient.: Yes I have reviewed all pertinent clinical information: Yes Notes (Text): 07/10/18 18:23 I have seen and examined the patient. Medical records, lab studies, and imaging were reviewed by me and a management plan was formulated on multidisciplinary rounds with resident Dr. Maki. I agree with their documented assessment and plan. Patient is not showing any signs of improvement, and given her long standing dementia and poor baseline status, she will most likely not improve. High morbidity and high mortality risk, with an extremely poor prognosis. We had a long discussion with the daughter that we should consider hospice care, and she said she will consider this after discussing with her stepfather. Critical Care Time 35 minutes. Multi-disciplinary rounds were performed with house staff, nursing, speech therapy, respiratory therapy, pharmacy and nutrition with integrated input from the primary team/attending and other consulting services. The documented time is cumulative and includes review of patient data/exams/labs/chart review and examination of the patient on rounds and throughout the day; time is exclusive of any procedures or teaching time.
[2018-07-10] MEDS: SODIUM CHLORIDE 0.9% IV SCH ×2 (17:13→18:22)
[2018-07-10] MEDS: ACYCLOVIR IV SCH ×2 (17:13→18:22)
--- NOTE | 2018-07-10 17:22 | CP.PCM.PN ---
Subjective - Date & Time of Evaluation Date of Evaluation: 07/10/18 Time of Evaluation: 17:17 - Subjective Subjective: Nephrology Consultation Note: Assessment: critical AMS, Intraparenchymal hemorrhage staph aureus sepsis possible source as PC BETH due to acute rejection now on dialysis MWF via permacath HTN, DM, ESRD s/p LURT @ [facility] in 2009 s/p acute rejection May 2018 due to medication non compliance thrombocytopenia with TTP Anemia, sec hyperparathyroidism hypokalemia hyponatremia Plan pt getting plasmapharesis. HD postponed for tomorrow continue with dialysis as ordered. nephrovite 1 tab/day Hypertension control with meds as ordered. pt not on RAAS kyung, will defer it as pt with allergy to enalapril Monitor I/O, daily weights and renal function Anema: will add epogen with HD. PRBC as needed secn hyperPTH: added sensipar 60 mg/d, recent PTH 1000 Kidney Transplant: continue with prednisone 5 mg/d. pt was on myfortic 3 tab bid at [place], d/w her transplant engineering aide. agree to d/c myfortic due to pt current illess and unlikely that transplant BETH will improve. hematology eval for thrombocytopenia appreciated Neuro following vascular surgery consult for permacath exchange. Dose meds/antibiotics for dialysis status. Avoid fleets enema/magnesium based laxatives. Glycemic control, renal diet. Further work up for as per primary team. Thanks for allowing me to participate in care of your patient. Will follow with you. Please call if any Qs. had d/w team and daughter. Dr Artie English Office: [phone] CC; AMS reason for consult: BETH on HD kidney tx status HPI: Pt is a 72 FM with hx of HTN (years), DM, ESRD s/p LURT @ [facility] in 2009 on intermediate prednisone 5 mg, tacrolimus and myfortic, memory impairment with non-compliance to meds lately recently admitted to [facility] 2018 with A [facility]I and transferred to [facility], had kidney biopsy suggested acute rejection treated with immunosuppression however pt required dialysis. also had TTP s/p plasmapharesis. her prograf level were undetectable. She was d/c to [place] and presented to hospital with complaints of AMS and renal consult for BETH now on dialysis and kidney transplant management. pt mostly non communicative No recent iodinated contrast exposure. ROS: hx unable to obtain from pt Physical Examination: General Appearance: in no acute respiratory distress, ill appearing mostly non communicative. head turned to left side throughout Vitals reviewed and noted as below Head; Atraumatic, normocephalic ENT: no ulcers no thrush. Tongue is midline. Oropharynx: no rash. has ulcer on lower lip ? herpetic EYES: b/l PERRLA Neck; supple no lymphadenopathy, no thyromegaly or bruit Lungs: Normal respiratory rate/effort. Breath sounds b/l with equal clear Heart: Increased rate. s1s2 normal. No rub or gallop. Extremities: no pitting edema. No varicose veins. RUE swelling + Neurological: Patient is awake but non communicative. involuntary eye and facial movement noted Skin: dry and warm. Normal turgor. No rash. Palpitation: Normal elasticity for age Abdomen: Abdomen is non-distended . Bowel sounds +. There is no abdominal tenderness, no guarding/rigidity or organomegaly Psych: lack insight. deferred MSK: no specific joint tenderness or swelling. Digits and nails normal, no deformity : Rt transplant kidney + bladder not palpable dialysis access: permacath Labs/imaging/EKG reviewed. Past medical history, past surgical history, social history, allergy reviewed and noted as below Family hx; no hx of CKD. non contributory Objective - Vital Signs/Intake and Output Vital Signs (last 24 hours): Temp Pulse Resp BP Pulse Ox 98.0 F 109 H 39 H 137/81 100 07/10/18 12:00 07/10/18 17:02 07/10/18 17:02 07/10/18 17:02 07/10/18 17:02 Intake and Output: 07/10/18 07/10/18 06:59 18:59 Intake Total 448 100 Balance 448 100 - Medications Medications: Current Medications Acetaminophen (Tylenol 325mg Tab) 650 mg PO Q6 PRN PRN Reason: Fever >100.4 F Albuterol/Ipratropium (Duoneb 3 Mg/0.5 Mg (3 Ml) Ud) 3 ml INH RQ4 [facility] Last Admin: 07/10/18 16:52 Dose: Not Given Cinacalcet (Sensipar) 60 mg PO QPM [facility] Last Admin: 07/10/18 17:15 Dose: Not Given Dextrose (Dextrose 50% Inj) 0 ml IV STAT PRN; Protocol PRN Reason: Hypoglycemia Protocol Dextrose (Glutose 15) 0 gm PO ONCE PRN; Protocol PRN Reason: Hypoglycemia Protocol Epoetin Jose Ramon (Procrit) 10,000 unit IV MWF [facility] Last Admin: 07/10/18 17:15 Dose: Not Given Glucagon (Glucagen Diagnostic Kit) 0 mg IM STAT PRN; Protocol PRN Reason: Hypoglycemia Protocol Hydrocortisone Sodium Succinate (Solu-Cortef) 20 mg IV DAILY [facility] Last Admin: 07/10/18 10:39 Dose: 20 mg Dextrose (Dextrose 5% In Water 1000 Ml) 1,000 mls @ 0 mls/hr IV .Q0M PRN; Protocol PRN Reason: Hypoglycemia Protocol Piperacillin Sod/Tazobactam Sod (Zosyn 2.25 Gm Iv Premix) 2.25 gm in 50 mls @ 50 mls/hr IVPB Q8H [facility] Last Admin: 07/10/18 17:13 Dose: 50 mls/hr Vancomycin HCl 0.75 gm/ Sodium (Chloride) 250 mls @ 166.7 mls/hr IVPB MWF@1400 [facility]; Protocol Last Admin: 07/10/18 17:15 Dose: Not Given Acyclovir 275 mg/ Sodium (Chloride) 100 mls @ 100 mls/hr IV Q24H [facility]; Protocol Last Admin: 07/10/18 17:13 Dose: 100 mls/hr Insulin Human Regular (Novolin R) 0 unit SC ACHS [facility]; Protocol Last Admin: 07/10/18 17:14 Dose: 6 units Metoprolol Tartrate (Lopressor) 5 mg IVP Q12 [facility] Last Admin: 07/10/18 10:40 Dose: 5 mg Pantoprazole Sodium (Protonix Inj) 40 mg IVP Q12 [facility] Last Admin: 07/10/18 10:39 Dose: 40 mg Vitamin B Complex/Vit C/Folic Acid (Nephro-Douglas) 1 tab PO 0800 [facility] Last Admin: 07/10/18 08:30 Dose: Not Given - Labs Labs: 07/10/18 05:54 07/10/18 05:52 PT 11.5 SECONDS (9.7-12.2) 07/10/18 05:54 INR 1.1 07/10/18 05:54 APTT 26 SECONDS (21-34) 07/08/18 20:14
--- NOTE | 2018-07-10 17:55 | CP.PCM.CON ---
History of Present Illness - History of Present Illness History of Present Illness: 72 year old female with a PMH of hypertension, diabetes, chronic kidney disease on hemodialysis MWF s/p kidney transplant 10 years ago admitted here for change in mental status , slurred speech and right sided weakness Per daughter, she has had a decreased appetite for the last two weeks. . Complains of generalized weakness and pain. . Complains of neck pain from chronic L sided rotation. Patient was recently discharged from on 06/06/18 for BETH. She was transferred to [facility] where her transplant surgeon, Dr. Palacios, accepted her. Then transferred back to [place] Now on HD PMH: HTN, DM, CKD on HD MWF s/p kidney transplant, dementia, herpes simplex PSxHx: kidney transplant at [facility] 10 years ago, C/section 34 years ago FamHx: daughter - kidney stones. otherwise unknown SocHx: denies ever tobacco, alcohol, illicit drugs. Review of Systems - Review of Systems Systems not reviewed;Unavailable: Altered Mental Status All systems: reviewed and no additional remarkable complaints except - Constitutional Constitutional: As Per HPI, Anorexia, Fever, Malaise - EENT Eyes: As Per HPI Ears: absent: As Per HPI, Decreased Hearing, Ear Discharge, Ear Pain, Tinnitus, Abnormal Hearing, Disequilibrium, Dizziness, Other Nose/Mouth/Throat: absent: As Per HPI, Epistaxis, Nasal Congestion, Nasal Discharge, Nasal Obstruction, Nasal Trauma, Nose Pain, Post Nasal Drip, Sinus Pain, Sinus Pressure, Bleeding Gums, Change in Voice, Dental Pain, Dry Mouth, Dysphagia, Halitosis, Hoarsness, Lip Swelling, Mouth Lesions, Mouth Pain, Odynophagia, Sore Throat, Throat Swelling, Tongue Swelling, Facial Pain, Neck Pain, Neck Mass, Other - Breasts Breasts: absent: As Per HPI, Change in Shape, Mass, Pain, Nipple Discharge, Nipple Inversion, Skin Changes, Swelling, Other - Cardiovascular Cardiovascular: absent: As Per HPI, Acrocyanosis, Chest Pain, Chest Pain at Rest, Chest Pain with Activity, Claudication, Diaphoresis, Dyspnea, Dyspnea on Exertion, Edema, Irregular Heart Rhythm, Pain Radiating to Arm/Neck/Jaw, Leg Edema, Leg Ulcers, Lightheadedness, Orthopnea, Palpitations, Paroxysmal Nocturnal Dyspnea, Pedal Edema, Radiating Pain, Rapid Heart Rate, Slow Heart Rate, Syncope, Other - Respiratory Respiratory: absent: As Per HPI, Cough, Dyspnea, Hemoptysis, Dyspnea on Exertion, Wheezing, Snoring, Stridor, Pain on Inspiration, Chest Congestion, Excessive Mucous Production, Change in Mucous Color, Pain with Coughing, Other - Gastrointestinal Gastrointestinal: absent: As Per HPI, Abdominal Pain, Belching, Bloating, Change in Bowel Habits, Change in Stool Character, Coffee Ground Emesis, Constipation, Cramping, Diarrhea, Dyspepsia, Dysphagia, Early Satiety, Excessive Flatus, Fecal Incontinence, Heartburn, Hematemesis, Hematochezia, Loose Stools, Melena, Nausea, Odynophagia, Temesmus, Vomiting, Other - Genitourinary Genitourinary: absent: As Per HPI, Change in Urinary Stream, Difficulty Urinating, Dysuria, Flank Pain, Hematuria, Pyuria, Nocturia, Urinary Incontinence, Urinary Frequency, Urinary Hesitance, Urinary Urgency, Voiding Freq/Small Amts, Freq UTI, Hx Renal/Bladder Calculi, Hx /Renal Surgery, Bladder Distension, Other - Reproductive: Female Reproductive:Female: absent: As Per HPI, Amenorrhea, Amenorrhea/ Control, Currently Menstual, Cycle <21 Days, Cycle >35 Days, Cycle Variable, Menses 1-7 Days, Menses >/= 8 Days, Menses Variable, Cycle > 4 Weeks Between, No Menses for 6 Months, Heavy Menses, Light Menses, Normal Menses, Spotting Between Cycles, S/P Hysterectomy, Menopausal, Post Menopausal, Premenarche, Abnormal Vaginal Bleeding, Dysmenorrhea, Dyspareunia, Genital Lesions, Genital Pruritis, Pelvic Pain, Prolapse Symptoms, Sexual Dysfunction, Vaginal Discharge, Vaginal Dryness, Vaginal Odor, Vaginal Pruritis, Other - Menstruation Menstruation: absent: As Per HPI, Amenorrhea, Amenorrhea/ Control, Currently Menstual, Cycle <21 Days, Cycle >35 Days, Cycle Variable, Menses 1-7 Days, Menses >/= 8 Days, Menses Variable, Cycle > 4 Weeks Between, No Menses for 6 Months, Heavy Menses, Light Menses, Normal Menses, Spotting Between Cycles, S/P Hysterectomy, Menopausal, Post Menopausal, Premenarche, Abnormal Vaginal Bleeding, Dysmenorrhea, Other - Musculoskeletal Musculoskeletal: absent: As Per HPI, Abnormal Gait, Arthralgias, Atrophy, Back Pain, Deformity, Joint Swelling, Limited Range of Motion, Loss of Height, Muscle Cramps, Muscle Weakness, Myalgias, Neck Pain, Numbness, Radiating Pain into Limb, Stiffness, Tingling, Other - Integumentary Integumentary: absent: As Per HPI, Acne, Alopecia, Bleeding Lesions, Change in Hair, Change in Nails, Change in Pigmentation, Changing Lesions, Dry Skin, Yung thema, Furuncle, Hirsutism, Lesions, New Lesions, Non-Healing Lesions, Photosensitivity, Pruritus, Rash, Skin Pain, Skin Ulcer, Sores, Striae, Swelling, Unusual Bruising, Wounds, Jaundice, Other - Neurological Neurological: As Per HPI - Psychiatric Psychiatric: absent: As Per HPI, Abnormal Sleep Pattern, Anhedonia, Anxiety, Auditory Hallucinations, Behavioral Changes, Change in Appetite, Change in Libido, Confusion, Depression, Difficulty Concentrating, Hallucinations, Homicidal Ideation, Hopelessness, Irritability, Memory Loss, Mood Swings, Panic Attacks, Paranoia, Suicidal Ideation, Visual Hallucinations, Tactile Hallucinations, Other - Endocrine Endocrine: absent: As Per HPI, Change in Body Appearance, Change in Libido, Cold Intolorance, Deepening of Voice, Excessive Sweating, Fatigue, Flushing, Heat Intolorance, Increase in Ring/Shoe/Hat Size, Palpitations, Polydipsia, Polyphagia, Polyuria, Other - Hematologic/Lymphatic Hematologic: absent: As Per HPI, Easy Bleeding, Easy Bruising, Lymphadenopathy, Other 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) - HEMATOLOGICAL/ONCOLOGICAL Hx Human Immunodeficiency Virus (HIV): No - INTEGUMENTARY Hx Dermatological Problems: No - MUSCULOSKELETAL/RHEUMATOLOGICAL Hx Falls: No - GASTROINTESTINAL Hx Gastrointestinal Disorders: No - GENITOURINARY/GYNECOLOGICAL Hx Sexually Transmitted Disorders: No - PSYCHIATRIC Hx Anxiety: Yes Hx Depression: Yes Hx Substance Use: No - SURGICAL HISTORY Hx Surgeries: Yes Hx Section: Yes Hx Kidney Transplant: Yes (right kidney 2009) - ANESTHESIA Hx Anesthesia: Yes Hx Anesthesia Reactions: No Meds Allergies/Adverse Reactions: Allergies Allergy/AdvReac Type Severity Reaction Status Date / Time enalapril Allergy Severe ANGIOEDEMA Verified 07/08/18 16:41 - Medications Medications: Current Medications Acetaminophen (Tylenol 325mg Tab) 650 mg PO Q6 PRN PRN Reason: Fever >100.4 F Albuterol/Ipratropium (Duoneb 3 Mg/0.5 Mg (3 Ml) Ud) 3 ml INH RQ4 [facility] Last Admin: 07/10/18 16:52 Dose: Not Given Cinacalcet (Sensipar) 60 mg PO QPM [facility] Last Admin: 07/10/18 17:15 Dose: Not Given Dextrose (Dextrose 50% Inj) 0 ml IV STAT PRN; Protocol PRN Reason: Hypoglycemia Protocol Dextrose (Glutose 15) 0 gm PO ONCE PRN; Protocol PRN Reason: Hypoglycemia Protocol Epoetin Jose Ramon (Procrit) 10,000 unit IV TTS [facility] Glucagon (Glucagen Diagnostic Kit) 0 mg IM STAT PRN; Protocol PRN Reason: Hypoglycemia Protocol Hydrocortisone Sodium Succinate (Solu-Cortef) 20 mg IV DAILY [facility] Last Admin: 07/10/18 10:39 Dose: 20 mg Dextrose (Dextrose 5% In Water 1000 Ml) 1,000 mls @ 0 mls/hr IV .Q0M PRN; Protocol PRN Reason: Hypoglycemia Protocol Piperacillin Sod/Tazobactam Sod (Zosyn 2.25 Gm Iv Premix) 2.25 gm in 50 mls @ 50 mls/hr IVPB Q8H [facility] Last Admin: 07/10/18 06:18 Dose: 50 mls/hr Vancomycin HCl 0.75 gm/ Sodium (Chloride) 250 mls @ 166.7 mls/hr IVPB MWF@1400 [facility]; Protocol Last Admin: 07/10/18 17:15 Dose: Not Given Acyclovir 275 mg/ Sodium (Chloride) 100 mls @ 100 mls/hr IV Q24H [facility]; Protocol Insulin Human Regular (Novolin R) 0 unit SC ACHS [facility]; Protocol Metoprolol Tartrate (Lopressor) 5 mg IVP Q12 [facility] Last Admin: 07/10/18 10:40 Dose: 5 mg Pantoprazole Sodium (Protonix Inj) 40 mg IVP Q12 [facility] Last Admin: 07/10/18 10:39 Dose: 40 mg Vitamin B Complex/Vit C/Folic Acid (Nephro-Douglas) 1 tab PO 0800 [facility] Last Admin: 07/10/18 08:30 Dose: Not Given Physical Exam - Constitutional Appears: Toxic, No Acute Distress, Confused, Chronically Ill - Head Exam Head Exam: ATRAUMATIC, NORMAL INSPECTION, NORMOCEPHALIC - Eye Exam Eye Exam: absent: Scleral icterus Pupil Exam: NORMAL ACCOMODATION - ENT Exam ENT Exam: Mucous Membranes Dry, Normal External Ear Exam - Neck Exam Neck exam: Positive for: Normal Inspection. Negative for: Lymphadenopathy - Respiratory Exam Respiratory Exam: Decreased Breath Sounds, Clear to Auscultation Bilateral - Cardiovascular Exam Cardiovascular Exam: REGULAR RHYTHM, +S1, +S2 - GI/Abdominal Exam GI & Abdominal Exam: Diminished Bowel Sounds, Soft. absent: Tenderness - Rectal Exam Rectal Exam: Deferred - Exam Exam: NORMAL INSPECTION - Extremities Exam Extremities exam: Positive for: pedal edema, pedal pulses present - Back Exam Back exam: absent: CVA tenderness (L), CVA tenderness (R) - Neurological Exam Neurological exam: Altered, Motor Sensory Deficit - Psychiatric Exam Psychiatric exam: Depressed - Skin Skin Exam: Dry - Additional Findings Additional findings: altered with gaze preference to the left Results - Vital Signs Recent Vital Signs: Last Vital Signs Temp 98.0 F 07/10/18 12:00 Pulse 109 H 07/10/18 17:02 Resp 39 H 07/10/18 17:02 BP 137/81 07/10/18 17:02 Pulse Ox 100 07/10/18 17:02 - Labs Result Diagrams: 07/10/18 05:54 07/10/18 05:52 Labs: Laboratory Results - last 24 hr 07/08/18 07/10/18 07/10/18 23:16 05:52 05:52 WBC RBC Hgb Hct MCV MCH MCHC RDW Plt Count MPV Neut % (Auto) Lymph % (Auto) [place] % (Auto) Eos % (Auto) Baso % (Auto) Neut # (Auto) Lymph # (Auto) [place] # (Auto) Eos # (Auto) Baso # (Auto) Neutrophils % (Manual) Band Neutrophils % Lymphocytes % (Manual) Monocytes % (Manual) Platelet Estimate Hypochromasia (manual) Poikilocytosis (manual Anisocytosis (manual) Target Cells Ovalocytes Lenny Cells Schistocytes PT INR Sodium 135 Potassium 3.1 L Chloride 88 L Carbon Dioxide 32 H Anion Gap 17 BUN 70 H Creatinine 4.3 H Est GFR ( Amer) 12 Est GFR (Non-Af Amer) 10 Random Glucose 273 H D Calcium 9.7 Phosphorus 5.2 H Magnesium 2.1 Total Bilirubin 1.1 AST 24 ALT 14 Alkaline Phosphatase 84 Total Protein 4.8 L Albumin 2.9 L Globulin 1.9 L Albumin/Globulin Ratio 1.5 Random Vancomycin 15.0 Blood Type B POSITIVE Antibody Screen Negative 07/10/18 07/10/18 05:54 05:54 WBC 10.5 RBC 2.12 L Hgb 6.2 L* Hct 18.2 L MCV 86.0 MCH 29.2 MCHC 33.9 RDW 15.4 H Plt Count 27 L* MPV 11.3 Neut % (Auto) 92.3 H Lymph % (Auto) 2.7 L [place] % (Auto) 4.2 Eos % (Auto) 0.8 Baso % (Auto) 0.0 Neut # (Auto) 9.7 H Lymph # (Auto) 0.3 L [place] # (Auto) 0.4 Eos # (Auto) 0.1 Baso # (Auto) 0.0 Neutrophils % (Manual) 87 H Band Neutrophils % 5 H Lymphocytes % (Manual) 2 L Monocytes % (Manual) 6 Platelet Estimate Markedly decreased L Hypochromasia (manual) Moderate Poikilocytosis (manual Slight Anisocytosis (manual) Slight Target Cells Slight Ovalocytes Slight Flint Cells Slight Schistocytes Slight PT 11.5 INR 1.1 Sodium Potassium Chloride Carbon Dioxide Anion Gap BUN Creatinine Est GFR ( Amer) Est GFR (Non-Af Amer) Random Glucose Calcium Phosphorus Magnesium Total Bilirubin AST ALT Alkaline Phosphatase Total Protein Albumin Globulin Albumin/Globulin Ratio Random Vancomycin Blood Type Antibody Screen Assessment & Plan (1) CKD (chronic kidney disease) stage V requiring chronic dialysis Status: Acute (2) Altered mental status Status: Acute (3) NSTEMI (non-ST elevated myocardial infarction) Status: Acute (4) TTP (thrombotic thrombocytopenic purpura) Status: Acute (5) BETH (acute kidney injury) Status: Acute (6) Staphylococcus aureus bacteremia with sepsis Status: Acute (7) Staphylococcus aureus bacteremia with sepsis Status: Acute - Assessment and Plan (Free Text) Assessment: sepsis possible infected dialysis catheter r/o CVA ESRD on HD HX Failked transplant contsider JORDYN
[2018-07-10] MEDS ORDERED: SODIUM CHLORIDE 0.9% IV ONE (18:00)
[2018-07-10] MEDS ORDERED: CALCIUM GLUCONATE IV ONE (18:00)
[2018-07-10] MEDS ORDERED: Morphine Sulfate 250 MG in Dextrose 5% In Water 240 ML IV PRN (19:53)
[2018-07-10] MEDS ORDERED: Morphine 100 MG in Dextrose 5% In Water 90 ML SC PRN (20:15)
[2018-07-10] MEDS ORDERED: Morphine 100 MG in Dextrose 5% In Water 90 ML IV PRN (20:15)
[2018-07-11] MEDS ORDERED: (Novolin R) Insulin Human Regular 100 units/ml vial SC SCH ×2
[2018-07-11] MEDS: Albuterol-Ipratrop 3 mg / 0.5 (3 ml) UD INH SCH ×3 (00:19→07:40)
[2018-07-11] MEDS ORDERED: Morphine 100 MG in Dextrose 5% In Water 90 ML IV PRN (07:50)
--- NOTE | 2018-07-11 07:56 | CP.PCM.PN ---
Subjective - Date & Time of Evaluation Date of Evaluation: 07/11/18 Time of Evaluation: 07:55 - Subjective Subjective: BP 103/68, pulse 105,sat 100% Resting comfortable,sedated Objective - Vital Signs/Intake and Output Vital Signs (last 24 hours): Temp Pulse Resp BP Pulse Ox 97.2 F L 108 H 7 L 120/70 100 07/11/18 04:00 07/11/18 07:00 07/11/18 07:00 07/11/18 06:39 07/11/18 07:00 Intake and Output: 07/11/18 07/11/18 06:59 18:59 Intake Total 152 5 Output Total 0 Balance 152 5 - Medications Medications: Current Medications Albuterol/Ipratropium (Duoneb 3 Mg/0.5 Mg (3 Ml) Ud) 3 ml INH RQ4 [facility] Last Admin: 07/11/18 03:15 Dose: 3 ml Dextrose (Dextrose 50% Inj) 0 ml IV STAT PRN; Protocol PRN Reason: Hypoglycemia Protocol Dextrose (Glutose 15) 0 gm PO ONCE PRN; Protocol PRN Reason: Hypoglycemia Protocol Glucagon (Glucagen Diagnostic Kit) 0 mg IM STAT PRN; Protocol PRN Reason: Hypoglycemia Protocol Hydrocortisone Sodium Succinate (Solu-Cortef) 20 mg IV DAILY [facility] Last Admin: 07/10/18 10:39 Dose: 20 mg Dextrose (Dextrose 5% In Water 1000 Ml) 1,000 mls @ 0 mls/hr IV .Q0M PRN; Protocol PRN Reason: Hypoglycemia Protocol Morphine Sulfate 250 mg/ (Dextrose) 250 mls @ 5 mls/hr IV .Q24H PRN; Protocol PRN Reason: Pain, severe (8-10) Lorazepam (Ativan) 1 mg IVP Q6H PRN PRN Reason: Agitation Metoprolol Tartrate (Lopressor) 5 mg IVP Q12 [facility] Last Admin: 07/10/18 22:16 Dose: 5 mg Morphine Sulfate (Morphine) 2 mg IVP Q4 PRN PRN Reason: Pain, moderate (4-7) - Labs Labs: 07/10/18 05:54 07/10/18 05:52 PT 11.5 SECONDS (9.7-12.2) 07/10/18 05:54 INR 1.1 07/10/18 05:54 APTT 26 SECONDS (21-34) 07/08/18 20:14
[2018-07-11] MEDS: Metoprolol 1 mg/ml Inj IVP SCH (09:01)
[2018-07-11] MEDS ORDERED: Epoetin Alfa 10,000 unit/ml Dialysis IV SCH (10:00)
--- NOTE | 2018-07-11 10:54 | CP.PCM.PN ---
Subjective - Date & Time of Evaluation Date of Evaluation: 07/11/18 Time of Evaluation: 10:52 - Subjective Subjective: Nephrology Consultation Note: Assessment: terminal AMS, Intraparenchymal hemorrhage staph aureus sepsis possible source as PC BETH due to acute rejection now on dialysis MWF via permacath HTN, DM, ESRD s/p LURT @ [facility] in 2009 s/p acute rejection May 2018 due to medication non compliance thrombocytopenia with TTP Anemia, sec hyperparathyroidism hypokalemia hyponatremia Plan family opted for comfort measures only likely for hospice seen by palliative care no further dialysis continue with end of life care Thanks for allowing me to participate in care of your patient. Will sign off. Please call if any Qs. had d/w team and daughter. Dr Artie English Office: [phone] CC; AMS reason for consult: BETH on HD kidney tx status HPI: Pt is a 72 FM with hx of HTN (years), DM, ESRD s/p LURT @ [facility] in 2009 on computer terminal operator prednisone 5 mg, tacrolimus and myfortic, memory impairment with non-compliance to meds lately recently admitted to [facility] may 2018 with BETH and transferred to [facility] had kidney biopsy suggested acute rejection treated with immunosuppression however pt required dialysis. also had TTP s/p plasmapharesis. her prograf level were undetectable. She was d/c to [place] and presented to hospital with complaints of AMS and renal consult for BETH now on dialysis and kidney transplant management. pt mostly non communicative No recent iodinated contrast exposure. ROS: hx unable to obtain from pt Physical Examination: General Appearance: in no acute respiratory distress, ill appearing non communicative Vitals reviewed and noted as below Head; Atraumatic, normocephalic ENT: no ulcers no thrush. Tongue is midline. Oropharynx: no rash. has ulcer on lower lip ? herpetic Neck; supple no lymphadenopathy, no thyromegaly or bruit Lungs: Normal respiratory rate/effort. Breath sounds b/l with rale Heart: Increased rate. s1s2 normal. No rub or gallop. Extremities: no pitting edema. No varicose veins. RUE swelling + Neurological: Patient is non communicative. involuntary eye and facial movement noted Skin: dry and warm. Normal turgor. No rash. Palpitation: Normal elasticity for age Abdomen: Abdomen is non-distended . Bowel sounds +. There is no abdominal tenderness, no guarding/rigidity or organomegaly dialysis access: permacath Labs/imaging/EKG reviewed. Past medical history, past surgical history, social history, allergy reviewed and noted as below Family hx; no hx of CKD. non contributory Objective - Vital Signs/Intake and Output Vital Signs (last 24 hours): Temp Pulse Resp BP Pulse Ox 98.2 F 118 H 7 L 113/69 83 L 07/11/18 08:00 07/11/18 10:00 07/11/18 10:00 07/11/18 09:39 07/11/18 10:00 Intake and Output: 07/11/18 07/11/18 06:59 18:59 Intake Total 152 20 Output Total 0 Balance 152 20 - Medications Medications: Current Medications Albuterol/Ipratropium (Duoneb 3 Mg/0.5 Mg (3 Ml) Ud) 3 ml INH RQ4 [facility] Last Admin: 07/11/18 07:40 Dose: 3 ml Hydrocortisone Sodium Succinate (Solu-Cortef) 20 mg IV DAILY [facility] Last Admin: 07/11/18 09:15 Dose: 20 mg Morphine Sulfate 100 mg/ (Dextrose) 100 mls @ 5 mls/hr IV .Q20H PRN; Protocol PRN Reason: PER PROTOCOL Lorazepam (Ativan) 1 mg IVP Q6H PRN PRN Reason: Agitation Metoprolol Tartrate (Lopressor) 5 mg IVP Q12 [facility] Last Admin: 07/11/18 09:01 Dose: Not Given Morphine Sulfate (Morphine) 2 mg IVP Q4 PRN PRN Reason: Pain, moderate (4-7) - Labs Labs: 07/10/18 05:54 07/10/18 05:52 PT 11.5 SECONDS (9.7-12.2) 07/10/18 05:54 INR 1.1 07/10/18 05:54 APTT 26 SECONDS (21-34) 07/08/18 20:14
[2018-07-11 11:11] VITALS: O2SAT 100
[2018-07-11 12:34] VITALS: TEMP 98.4
--- NOTE | 2018-07-11 14:20 | CP.PCM.DIS ---
Provider - Provider Date of Admission: 07/08/18 21:41 Attending physician: Josse Barney MD Consults: 07/08/18 22:16 Physician Consult Routine Comment: Consulting Provider: Marito Diaz Consulting Physician: Marito Diaz Reason for Consult: intraparenchymal hemorrhage 07/08/18 22:31 Nephrology Consult Routine Comment: Consulting Provider: Artie English Consulting Physician: Artie English Reason for Consult: MWF HD 07/09/18 01:30 Nursing Referral for Palliative Care Routine Comment: Physician Instructions: Reason For Exam: Score 10 07/09/18 01:40 Social Work Referral Routine Comment: dale score 19 Physician Instructions: Reason For Exam: dale score19+ 07/09/18 08:30 Physician Consult Routine Comment: Consulting Provider: Cullen Cruz Consulting Physician: Cullen Cruz Reason for Consult: TTP,Thrombocytopenia and anemia 07/09/18 09:29 Physician Consult Routine Comment: Consulting Provider: Anthony Miguel Consulting Physician: Anthony Miguel Reason for Consult: NSTMI,ESRD on HD,TTP,Intracranial bleed 07/09/18 16:17 Physician Consult Routine Comment: Consulting Provider: Paulo Ugalde Consulting Physician: Paulo Ugalde Reason for Consult: bacteremia 07/09/18 16:18 Palliative Care Consult Routine Comment: Consulting Provider: Alyson Garcia Physician Instructions: Reason For Exam: Advance directives 07/10/18 11:21 Physician Consult Routine Comment: Consulting Provider: Karla Ash Consulting Physician: Karla Ash Reason for Consult: AMS,r/o seizure,intraparenchymal bleeding Time Spent in preparation of Discharge (in minutes): 45 Diagnosis - Discharge Diagnosis (1) TTP (thrombotic thrombocytopenic purpura) Status: Acute Priority: High Onset Date: ~07/08/18 Hospital Course - Lab Results Lab Results: Micro Results 07/09/18 06:23 Blood Blood Culture - Final Staphylococcus Aureus 07/09/18 06:23 Blood Gram Stain - Final 07/09/18 06:23 Blood Blood Culture - Final Staphylococcus Aureus 07/09/18 06:23 Blood Gram Stain - Final 07/09/18 06:20 Naris MRSA Culture (Admit) - Final MRSA NOT DETECTED Most Recent Lab Values WBC 10.5 K/uL (4.8-10.8) 07/10/18 05:54 RBC 2.12 Mil/uL (3.80-5.20) L 07/10/18 05:54 Hgb 6.2 g/dL (11.0-16.0) L* 07/10/18 05:54 Hct 18.2 % (34.0-47.0) L 07/10/18 05:54 MCV 86.0 fL (81.0-99.0) 07/10/18 05:54 MCH 29.2 pg (27.0-31.0) 07/10/18 05:54 MCHC 33.9 g/dL (33.0-37.0) 07/10/18 05:54 RDW 15.4 % (11.5-14.5) H 07/10/18 05:54 Plt Count 27 K/uL (130-400) L* 07/10/18 05:54 MPV 11.3 fL (7.2-11.7) 07/10/18 05:54 Neut % (Auto) 92.3 % (50.0-75.0) H 07/10/18 05:54 Lymph % (Auto) 2.7 % (20.0-40.0) L 07/10/18 05:54 Nye % (Auto) 4.2 % (0.0-10.0) 07/10/18 05:54 Eos % (Auto) 0.8 % (0.0-4.0) 07/10/18 05:54 Baso % (Auto) 0.0 % (0.0-2.0) 07/10/18 05:54 Neut # (Auto) 9.7 K/uL (1.8-7.0) H 07/10/18 05:54 Lymph # (Auto) 0.3 K/uL (1.0-4.3) L 07/10/18 05:54 Nye # (Auto) 0.4 K/uL (0.0-0.8) 07/10/18 05:54 Eos # (Auto) 0.1 K/uL (0.0-0.7) 07/10/18 05:54 Baso # (Auto) 0.0 K/uL (0.0-0.2) 07/10/18 05:54 Neutrophils % (Manual) 87 % (50-75) H 07/10/18 05:54 Band Neutrophils % 5 % (0-2) H 07/10/18 05:54 Lymphocytes % (Manual) 2 % (20-40) L 07/10/18 05:54 Monocytes % (Manual) 6 % (0-10) 07/10/18 05:54 Platelet Estimate Markedly decreased (NORMAL) L 07/10/18 05:54 Large Platelets Present 07/09/18 08:21 Hypochromasia (manual) Moderate 07/10/18 05:54 Poikilocytosis (manual Slight 07/10/18 05:54 Anisocytosis (manual) Slight 07/10/18 05:54 Microcytosis (manual) Slight 07/08/18 17:08 Target Cells Slight 07/10/18 05:54 Ovalocytes Slight 07/10/18 05:54 [place] Cells Slight 07/10/18 05:54 Schistocytes Slight 07/10/18 05:54 PT 11.5 SECONDS (9.7-12.2) 07/10/18 05:54 INR 1.1 07/10/18 05:54 APTT 26 SECONDS (21-34) 07/08/18 20:14 Sodium 135 mmol/L (132-148) 07/10/18 05:52 Potassium 3.1 mmol/L (3.6-5.2) L 07/10/18 05:52 Chloride 88 mmol/L (98-107) L 07/10/18 05:52 Carbon Dioxide 32 mmol/L (22-30) H 07/10/18 05:52 Anion Gap 17 (10-20) 07/10/18 05:52 BUN 70 mg/dL (7-17) H 07/10/18 05:52 Creatinine 4.3 mg/dL (0.7-1.2) H 07/10/18 05:52 Est GFR ( Amer) 12 07/10/18 05:52 Est GFR (Non-Af Amer) 07/10/18 05:52 POC Glucose (mg/dL) 267 mg/dL (65-110) H 07/08/18 23:13 Random Glucose 273 mg/dL (65-105) H D 07/10/18 05:52 Lactic Acid 1.3 mmol/L (0.7-2.1) 07/08/18 23:06 Calcium 9.7 mg/dl (8.6-10.4) 07/10/18 05:52 Phosphorus 5.2 mg/dL (2.5-4.5) H 07/10/18 05:52 Magnesium 2.1 mg/dL (1.6-2.3) 07/10/18 05:52 Total Bilirubin 1.1 mg/dL (0.2-1.3) 07/10/18 05:52 AST 24 U/L (14-36) 07/10/18 05:52 ALT 14 U/L (9-52) 07/10/18 05:52 Alkaline Phosphatase 84 U/L (38-126) 07/10/18 05:52 Troponin I 0.3340 ng/mL (0.00-0.120) H* 07/08/18 17:08 Total Protein 4.8 g/dL (6.3-8.3) L 07/10/18 05:52 Albumin 2.9 g/dL (3.5-5.0) L 07/10/18 05:52 Globulin 1.9 gm/dL (2.2-3.9) L 07/10/18 05:52 Albumin/Globulin Ratio 1.5 (1.0-2.1) 07/10/18 05:52 Random Vancomycin 15.0 ug/mL 07/10/18 05:52 Hep Bs Antigen Negative (NEGATIVE) 07/10/18 17:10 Blood Type B POSITIVE 07/08/18 23:16 Antibody Screen Negative 07/08/18 23:16 - Hospital Course Hospital Course: Discharge to inpatient hospice care Diagnosis 1.Thrombotic thrombocytopenic purpura 2.Patient has low platelets and intraparenchymal bleeding 3.ESRD on HD and Kidney transplant rejection 4.Bacteremia gram possitive cocci 5.NSTMI 6.Dementia with confusion 7.DM 8.HTN 9.Depression Minerva is a 72 year old [place] female with a PMH of hypertension, diabetes, chronic kidney disease on hemodialysis MWF s/p kidney transplant 10 years ago, and dementia here today for acute change in speech and energy noted after hemodialysis 07/08/18. Per daughter, she has had a decreased appetite for the last two weeks. Due to lack of motivation in swallowing, she has been eating a lot less and become non compliant with her medications. Speech is unintelligible, but patient is able to respond to yes/no questioning appropriately. Complains of generalized weakness and pain. Denies chest pain, shortness of breath, headache, n/v/c/d. Complains of neck pain from chronic L sided rotation. Patient was on intermediate prednisone 5 mg, tacrolimus and myfortic, memory impairment with non-compliance to meds ,she was admitted to [facility] [place] may 2018 with BETH and diagnosed with TTP. She was transferred to [facility] and underwent plasma exchange. Patient was brought for increasing confusion this time.CT showed parenchymal bleeding and the patient was in TTP. Started on plasma exchange.She also got FFP and platelets due to the bleeding.Echocardiogram showed RA thrombus. Patient was started on antibiotics for bacteremia Patient has very poor prognosis with relapsed TTP ,ESRD on HD,dementia with confusion and failure to thrive(not eating well before admission). Patient's only Daughter Abby decided to make her comfortable with morphine drip and withdraw treatment. She is accepted for inpatient hospice care. Discharge Exam - Head Exam Head Exam: ATRAUMATIC, NORMAL INSPECTION, NORMOCEPHALIC Discharge Plan - Follow Up Plan Condition: FAIR Disposition: HOSPICE - MEDICAL FACILITY
[2018-07-11 15:01] VITALS: BP 110/60
[2018-07-11 15:11] VITALS: PULSE 133; RESP 4
--- NOTE | 2018-07-11 20:08 | CP.PCM.PN ---
Subjective - Date & Time of Evaluation Date of Evaluation: 07/10/18 Time of Evaluation: 17:00 - Subjective Subjective: s/p plasma exchange appears fatigued Objective - Vital Signs/Intake and Output Vital Signs (last 24 hours): Temp Pulse Resp BP Pulse Ox 98.4 F 133 H 4 L 110/60 100 07/11/18 12:00 07/11/18 15:00 07/11/18 15:00 07/11/18 14:39 07/11/18 15:00 Intake and Output: 07/11/18 07/12/18 18:59 06:59 Intake Total 45 Balance 45 - Labs Labs: 07/10/18 05:54 07/10/18 05:52 PT 11.5 SECONDS (9.7-12.2) 07/10/18 05:54 INR 1.1 07/10/18 05:54 APTT 26 SECONDS (21-34) 07/08/18 20:14 - Head Exam Head Exam: ATRAUMATIC - Eye Exam Eye Exam: Normal appearance - ENT Exam ENT Exam: Mucous Membranes Dry - Respiratory Exam Respiratory Exam: Decreased Breath Sounds - Cardiovascular Exam Cardiovascular Exam: +S1, +S2 - GI/Abdominal Exam GI & Abdominal Exam: Normal Bowel Sounds Assessment and Plan (1) TTP (thrombotic thrombocytopenic purpura) Assessment & Plan: idiopathic plasma exchange daily repeat CBC Status: Acute (2) Cardiac mass Assessment & Plan: ? myxoma unable to anticoagulate given intracerebral bleed Status: Acute
--- NOTE | 2018-07-11 20:10 | CP.PCM.PN ---
Subjective - Date & Time of Evaluation Date of Evaluation: 07/11/18 Time of Evaluation: 12:00 - Subjective Subjective: Family agreeable to comfort care and hospice. Objective - Vital Signs/Intake and Output Vital Signs (last 24 hours): Temp Pulse Resp BP Pulse Ox 98.4 F 133 H 4 L 110/60 100 07/11/18 12:00 07/11/18 15:00 07/11/18 15:00 07/11/18 14:39 07/11/18 15:00 Intake and Output: 07/11/18 07/12/18 18:59 06:59 Intake Total 45 Balance 45 - Labs Labs: 07/10/18 05:54 07/10/18 05:52 PT 11.5 SECONDS (9.7-12.2) 07/10/18 05:54 INR 1.1 07/10/18 05:54 APTT 26 SECONDS (21-34) 07/08/18 20:14 - Head Exam Head Exam: ATRAUMATIC - Eye Exam Eye Exam: Normal appearance - ENT Exam ENT Exam: Mucous Membranes Dry - Respiratory Exam Respiratory Exam: NORMAL BREATHING PATTERN - Cardiovascular Exam Cardiovascular Exam: +S1, +S2 - GI/Abdominal Exam GI & Abdominal Exam: Normal Bowel Sounds Assessment and Plan (1) TTP (thrombotic thrombocytopenic purpura) Status: Acute (2) Cardiac mass Status: Acute
== END 2018-07-11 15:20 | disposition hospice, inpatient (51) | DRG 64 ==
LOC: C.ER 15:56 → C.9I 21:41
PROVIDERS: ADMIT Family Medicine; ATTEND Family Medicine
PROC: 30233K1 Transfusion of Nonautologous Frozen Plasma into Peripheral Vein, Percutaneous Approach (ICD-10-PCS; principal; 2018-07-08)
PROC: 6A550Z2 Pheresis of Platelets, Single (ICD-10-PCS; 2018-07-09)
PROC: 02HV33Z Insertion of Infusion Device into Superior Vena Cava, Percutaneous Approach (ICD-10-PCS; 2018-07-10)
PROC: B518ZZA Fluoroscopy of Superior Vena Cava, Guidance (ICD-10-PCS; 2018-07-10)
PROC: B54MZZA Ultrasonography of Right Upper Extremity Veins, Guidance (ICD-10-PCS; 2018-07-10)
DX: I61.9 Nontraumatic intracerebral hemorrhage, unspecified (principal); I21.4 Non-ST elevation (NSTEMI) myocardial infarction; A41.01 Sepsis due to Methicillin susceptible Staphylococcus aureus; N18.6 End stage renal disease; M31.1 Thrombotic microangiopathy; T80.211A Bloodstream infection due to central venous catheter, initial encounter; E87.1 Hypo-osmolality and hyponatremia; T86.12 Kidney transplant failure; N25.81 Secondary hyperparathyroidism of renal origin; I12.0 Hypertensive chronic kidney disease with stage 5 chronic kidney disease or end stage renal disease; G81.91 Hemiplegia, unspecified affecting right dominant side; D15.1 Benign neoplasm of heart; E86.0 Dehydration; D63.1 Anemia in chronic kidney disease; D69.59 Other secondary thrombocytopenia; E11.22 Type 2 diabetes mellitus with diabetic chronic kidney disease; E87.6 Hypokalemia; F32.9 Major depressive disorder, single episode, unspecified; F03.90 Unspecified dementia, unspecified severity, without behavioral disturbance, psychotic disturbance, mood disturbance, and anxiety; G93.89 Other specified disorders of brain; R62.7 Adult failure to thrive; R47.81 Slurred speech; I51.7 Cardiomegaly; E78.5 Hyperlipidemia, unspecified; Y83.0 Surgical operation with transplant of whole organ as the cause of abnormal reaction of the patient, or of later complication, without mention of misadventure at the time of the procedure; E78.00 Pure hypercholesterolemia, unspecified; Z51.5 Encounter for palliative care; Z66 Do not resuscitate; Z91.14 Patient's other noncompliance with medication regimen; Z79.52 Long term (current) use of systemic steroids; Z86.73 Personal history of transient ischemic attack (TIA), and cerebral infarction without residual deficits; Z87.891 Personal history of nicotine dependence; Z99.2 Dependence on renal dialysis

== ENCOUNTER 2018-07-11 14:16 | Inpatient (IN) | payer OTHER ==
[2018-07-11 15:43] VITALS: BMI 21.9
--- NOTE | 2018-07-11 16:16 | CP.PCM.HP ---
<Bob Ordaz - Last Filed: 07/11/18 17:17> History of Present Illness - History of Present Illness History of Present Illness: H&P for Dr Orr hospitalist service Patient is a 72 year old female with a PMH of hypertension, diabetes, chronic kidney disease on hemodialysis MWF s/p kidney transplant 10 years ago, and dementia admitted on 07/08/18 for acute change in speech and energy noted after hemodialysis. Per daughter, she has had a decreased appetite for the last two weeks. She was admitted to [facility] may 2018 with BETH and diagnosed with TTP. On last admission, CT showed parenchymal bleeding and was started on plasma exchange. She also got FFP and platelets due to the bleeding. Echo showed RA thrombus. Patient was started on antibiotics for bacteremia. Patient has very poor prognosis with relapsed TTP, ESRD on HD, dementia with confusion and failure to thrive. Patient's only Daughter Abby decided to make her comfortable with morphine drip and withdraw treatment. She is accepted for inpatient hospice care and has been seen by [facility] services. Code status: DNR/DNI PMH: HTN, DM, CKD on HD MWF s/p kidney transplant, dementia, herpes simplex, TTP, Intraparenchymal bleed Daughter: Abby Palma [phone] Present on Admission - Present on Admission Any Indicators Present on Admission: No Past Patient History - Past Medical History & Family History Past Medical History?: Yes - Past Social History Smoking Status: Never Smoked - CARDIAC Hx Hypercholesterolemia: Yes Hx Hypertension: Yes - PULMONARY Hx Tuberculosis: No - NEUROLOGICAL Hx Dementia: Yes Hx Seizures: No - HEENT Hx HEENT Problems: No - RENAL Hx Chronic Kidney Disease: Yes - ENDOCRINE/METABOLIC Hx Endocrine Disorders: Yes 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) - HEMATOLOGICAL/ONCOLOGICAL Hx Human Immunodeficiency Virus (HIV): No - INTEGUMENTARY Hx Dermatological Problems: No - MUSCULOSKELETAL/RHEUMATOLOGICAL Hx Falls: No - GASTROINTESTINAL Hx Gastrointestinal Disorders: No - GENITOURINARY/GYNECOLOGICAL Hx Sexually Transmitted Disorders: No - PSYCHIATRIC Hx Anxiety: Yes Hx Depression: Yes Hx Substance Use: No - SURGICAL HISTORY Hx Surgeries: Yes Hx Section: Yes Hx Kidney Transplant: Yes (right kidney 2009) - ANESTHESIA Hx Anesthesia: Yes Hx Anesthesia Reactions: No Meds Allergies/Adverse Reactions: Allergies Allergy/AdvReac Type Severity Reaction Status Date / Time enalapril Allergy Severe ANGIOEDEMA Verified 07/08/18 16:41 Physical Exam - Constitutional Appears: Chronically Ill - Head Exam Head Exam: NORMAL INSPECTION - Eye Exam Eye Exam: PERRL - Respiratory Exam Respiratory Exam: absent: NORMAL BREATHING PATTERN - Cardiovascular Exam Cardiovascular Exam: REGULAR RHYTHM - GI/Abdominal Exam GI & Abdominal Exam: Soft - Extremities Exam Extremities exam: Positive for: normal inspection. Negative for: pedal edema - Neurological Exam Additional comments: not awake, alert or oriented - Skin Skin Exam: Dry, Warm Assessment & Plan - Assessment and Plan (Free Text) Assessment: Patient is a 72 year old female with pmhx of ESRD on HD s/p kidney transplant, with recent diagnosis of TTP, was found on last admission to have parenchymal bleed, bacteremia and r atrial thrombus, poor prognosis, admitted for inpatient hospice care, services given by [facility]. Plan: 1. Hospice care - d/c home meds, blood work, nebulizers, steroids - morphine drip 5cc/hr - ativan 1mg IVP Q2H PRN for anxiety - morphine 2mg IVP PRN sedation - scopalamine patch Q72H for secretions Plan discussed with Dr Kirby Ordaz, PGY-1 - Date & Time Date: 07/11/18 Time: 15:00 <Hanna Orr - Last Filed: 07/11/18 18:39> Attending/Attestation - Attestation I have personally seen and examined this patient.: Yes I have fully participated in the care of the patient.: Yes I have reviewed all pertinent clinical information: Yes Notes (Text): Seen and examined this afternoon again. spoke to to daughter at bedside We will continue comfort care with [facility] care. 1.Dementia with confusion 2.TTP 3.ESRD on HD,failed transplant 4.RA atrial thrombus 5.Intraparenchymal bleeding
[2018-07-11] MEDS ORDERED: SODIUM CHLORIDE 0.9% SC PRN (16:33)
[2018-07-11] MEDS ORDERED: MORPHINE SC PRN (16:33)
--- NOTE | 2018-07-11 23:14 | CP.PCM.DIS ---
<Robyn Khoury - Last Filed: 07/11/18 23:27> Provider - Provider Date of Admission: 07/11/18 14:16 Attending physician: Hanna Orr MD Time Spent in preparation of Discharge (in minutes): 45 Diagnosis - Discharge Diagnosis (1) Intraparenchymal hemorrhage of brain Status: Acute (2) NSTEMI (non-ST elevated myocardial infarction) Status: Acute Hospital Course - Hospital Course Hospital Course: Patient is a 72 year old female with a PMH of hypertension, diabetes, chronic kidney disease on hemodialysis MWF s/p kidney transplant 10 years ago, and dementia admitted on 07/08/18 for acute change in speech and energy noted after hemodialysis. Per daughter, she has had a decreased appetite for the last two weeks. She was admitted to [facility] may 2018 with BETH and diagnosed with TTP. On last admission, CT showed parenchymal bleeding and was started on plasma exchange. She also got FFP and platelets due to the bleeding. Echo showed RA thrombus. Patient was started on antibiotics for bacteremia. Patient has very poor prognosis with relapsed TTP, ESRD on HD, dementia with confusion and failure to thrive. Patient's only Daughter Abby decided to make her comfortable with morphine drip and withdraw treatment. She is accepted for [facility] hospice care and has been seen by [facility] services. Resident was called to the room by RN. Family including daughter Abby was in room. Patient was unresponsive during physical exam. IV stopped. Reflexes 0/4, pupils unreactive. Unable to obtain vitals. Pronounced at 2307. EDRS completed. This is a summary of the hospital stay; please refer to the EMR for more detail. - Date & Time of H&P Date of H&P: 07/11/18 Time of H&P: 23:15 Discharge Exam - Head Exam Head Exam: NORMAL INSPECTION Discharge Plan - Follow Up Plan Condition: Disposition: WITH WITHOUT AUTOPSY <Hanna Orr - Last Filed: 07/12/18 09:30> Provider - Provider Date of Admission: 07/11/18 14:16 Attending physician: Hanna Orr MD Attending/Attestation - Attestation I have personally seen and examined this patient.: No I have fully participated in the care of the patient.: Yes I have reviewed all pertinent clinical information, including history, physical exam and plan: Yes Notes (Text): 1. TTP 2.Intraparenchymal bleeding 3.RA thrombus 4.Dementia with confusion 5.ESRD on HD 6.Bacteremia
--- NOTE | 2018-07-11 23:17 | CP.PCM.PRO ---
Pronouncement of Note - Clinical Findings Physical Exam: No Response Verbal/Painful Stimuli, Absent Peripheral Puls es{Carotid & Femoral}, Absent Heart & Breath Sounds, No Pupillary Light Reflex, No Corneal Reflex, Absence of Vital Signs - Pronouncement Time Time of Pronouncement of : 23:07 - Notifications Pronouncement Notifications: Family Notified (family at bedside), Atending Notified Military Technology Specialist Notified: No - Autopsy Autopsy Requested: No - [place] [id number]
== END 2018-07-12 02:05 | DRG 64 ==
LOC: C.9I 14:16 → C.3T 16:32
PROVIDERS: ADMIT Internal Medicine; ATTEND Internal Medicine
DX: I61.8 Other nontraumatic intracerebral hemorrhage (principal); I21.4 Non-ST elevation (NSTEMI) myocardial infarction; M31.1 Thrombotic microangiopathy; N18.6 End stage renal disease; I12.0 Hypertensive chronic kidney disease with stage 5 chronic kidney disease or end stage renal disease; F05 Delirium due to known physiological condition; R78.81 Bacteremia; Z94.0 Kidney transplant status; E11.22 Type 2 diabetes mellitus with diabetic chronic kidney disease; E78.00 Pure hypercholesterolemia, unspecified; F03.90 Unspecified dementia, unspecified severity, without behavioral disturbance, psychotic disturbance, mood disturbance, and anxiety; R62.7 Adult failure to thrive; Z51.5 Encounter for palliative care; Z66 Do not resuscitate; R47.9 Unspecified speech disturbances; Z99.2 Dependence on renal dialysis